=== PATIENT | male | born 1960 | race Caucasian/White ===

== ENCOUNTER 2020-10-21 09:55 | Emergency (ER) | payer BC, SELFPAY ==
--- NOTE | ~2020-10-21 | XR_ITS ---
EXAMINATION: XR chest 1V portable 10/21/2020 11:00 INDICATION: Cough and fever. Hypertension. PROCEDURE: AP portable chest COMPARISON: No prior studies for comparison. FINDINGS: The lungs are clear. The cardiomediastinal silhouette is within normal limits. There are no pleural effusions. There is no pneumothorax suspected. IMPRESSION: 1: NO ACUTE CARDIOPULMONARY DISEASE. Reviewed, dictated and finalized at location A.
[2020-10-21 10:02] VITALS: BP 167/108; PULSE 124; RESP 18; TEMP 36; O2SAT 99
--- NOTE | 2020-10-21 10:42 | ED.GENADULT ---
HPI - General Adult General Chief complaint: Weakness Stated complaint: Headache Time Seen by Provider: 10/21/20 10:19 History of Present Illness HPI narrative: Patient is a 52-year-old male with history of hypertension who comes to the emergency room today with complaints of feeling fatigued and having generalized weakness along with sore throat, bilateral ear pain and a frontal headache for the last few days. Admits to fevers with a temperature of 101 over the weekend. Has been having some dyspnea on exertion that is become worse today and just says that he is feeling exhausted. 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 Patient was satting 79% on room air upon initial evaluation. Placed on 3 L nasal cannula and now satting in the high 90s and feeling much more comfortable. No nausea or vomiting, no anosmia. Related Data Home Medications Medication Instructions Recorded Confirmed diltiazem HCl PO 10/21/20 Allergies Allergy/AdvReac Type Severity Reaction Status Date / Time No Known Allergies Allergy Unverified 10/21/20 10:04 Review of Systems Review of Systems: All systems reviewed & are unremarkable except as noted in HPI and below Exam Const: General: no acute distress and alert Orientation/consciousness: patient oriented x3 Other: Pleasant, no distress HENMT: Head: normal to inspection Eyes: Pupils: Equal, round and reactive pupils present Neck: Neck: normal visual inspection Chest: Chest palpation & inspection: normal inspection of the chest Resp: Effort & Inspection: normal respiratory effort Cardio: Rate: tachycardic GI: Inspection: non-distended GI Palp: Yes Soft to palpation, No Tenderness to palpation present (GI) and No Guarding due to palpation present (GI) Skin: General skin exam: normal color Neuro: General: patient oriented x3, moves all extremities and no meningeal signs Extrem: General: normal to inspection and no edema Psych: Mental Status: mental status grossly normal Affect: normal affect Course Course Emergency Course: EKG: Time: 1048. Rate: 91. Rhythm: Normal sinus. No ST or T wave normalities. Normal EKG. Vital Signs Vital signs: Vital Signs Temperature 36.0 C L 10/21/20 10:02 Pulse Rate 124 H 10/21/20 10:02 Respiratory Rate 18 10/21/20 10:02 Blood Pressure 167/108 H 10/21/20 10:02 Pulse Oximetry 99 10/21/20 10:02 Temperature 36.0 C L 10/21/20 10:02 Pulse Rate 94 10/21/20 11:44 Respiratory Rate 14 10/21/20 11:44 Blood Pressure 164/109 H 10/21/20 11:44 Pulse Oximetry 96 10/21/20 11:44 Medical Decision Making MDM Narrative Medical decision making narrative: 13:11 Rechecked the patient. He is feeling much better just with the supplemental oxygen. He has refused the IV fluids and the Toradol and Tylenol. I turned off the supplemental oxygen and patient was maintaining O2 saturations in the high 90s. I had the patient ambulate around the ED and he still maintain O2 saturations in the high 90s. He is requesting to be discharged. I feel that that is reasonable. I expressed my concern for COVID-19 infection. We agreed on plan for discharge with strict return to ED precautions. Medical Records Medical records reviewed: Yes I reviewed the external patient's medical records. Vital Signs Vital Signs: Vital Signs Temperature 36.0 C L 10/21/20 10:02 Pulse Rate 124 H 10/21/20 10:02 Respiratory Rate 18 10/21/20 10:02 Blood Pressure 167/108 H 10/21/20 10:02 Pulse Oximetry 99 10/21/20 10:02 Temperature 36.0 C L 10/21/20 10:02 Pulse Rate 94 10/21/20 11:44 Respiratory Rate 14 10/21/20 11:44 Blood Pressure 164/109 H 10/21/20 11:44 Pulse Oximetry 96 10/21/20 11:44 Lab Data Result diagrams: 10/21/20 11:19 10/21/20 11:19 Labs: Lab Results 10/21/20 10/21/20 10/21/20 Range/Units 11:19 11:19 11:19 WBC 6.4 (4.5-10.0) K/mm3 RBC
--- NOTE | 2020-10-21 10:46 | ECG_ITS ---
Measurements Intervals [place] Rate: 91 P: 38 MT: 148 QRS: 8 QRSD: 105 T: 36 QT: 383 QTc: 472 Interpretive Statements SINUS RHYTHM NORMAL ECG Electronically Signed On 10-21-2020 11:23:24 CDT by Eric Mcghee D.O.
[2020-10-21 10:48] VITALS: PULSE 92
--- NOTE | 2020-10-21 11:03 | PC.NURSE ---
Pt placed on 2 L NC O2 due to Ox Sat of 70% on room air. O2 sat then increased to 95%.
[2020-10-21 11:28] LABS: Basophils Percent Auto 0.6 % (0.2-1.2); Eosinophils Absolute Auto 0.1 K/mm3 (0-0.3); Hemoglobin 14.5 g/dL (14.0-18.0); Immature Granulocyte Absolute 0.01 K/mm3 (0.00-0.031); Immature Granulocyte Percent A 0.2 % (0-0.5); Immature Platelet Fraction Pct 7.6 % (0.9-11.2); Lymphocytes Absolute Auto 1.65 K/mm3 (0.9-3.2); Lymphocytes Percent Auto 25.9 % (18.3-44.2); Mean Corpuscular HGB Conc 34.5 g/dl (32-36); Mean Corpuscular Hemoglobin 36.8 pg (26-34); Mean Corpuscular Volume 106.6 fl (80-100); Mean Platelet Volume 10.6 fl (7.4-10.4); Monocytes Absolute Auto 0.8 K/mm3 (0.1-0.6); Monocytes Percent Auto 12.2 % (2.6-8.5); Neutrophils Absolute Auto 3.8 K/mm3 (1.3-6.7); Neutrophils Percent Auto 59.1 % (45.5-73.1); Platelet Count Result 124 k/mm3 (150-375); Red Blood Count 3.94 M/mm3 (4.6-6.20); Red Cell Distribution Width 13.5 % (11.5-14.5); White Blood Count 6.4 K/mm3 (4.5-10.0)
[2020-10-21 11:29] LABS: Add Urine Microscopic? YES; Appearance Urine Clear (Clear); Bilirubin Urine Negative (Negative); Blood Urine Negative (Negative); Color Urine Yellow (Yellow); Glucose Urine UA Negative (Negative); Ketones Urine Negative (Negative); Leukocyte Esterase Ur Negative LEU/UL (Negative); Mucus Urine Rare /lpf; Nitrate Urine Negative (Negative); Protein Urine 3+ mg/dL (Negative); Specific Grav Ur 1.017 (1.001-1.035)
[2020-10-21 11:44] VITALS: BP 164/109; PULSE 94; RESP 14; O2SAT 96
--- NOTE | 2020-10-21 11:50 | PC.NURSE ---
Went to room to start IV. Pt verbalized not wanting IV unless absolutely necessary . Declined Tylenol due to possible side effect of liver toxicity. Declined Toradol also stated pain is better . Oxygen decreased to 1L/NC
[2020-10-21 12:19] LABS: Alanine Aminotransferase 47 U/L (4-50); Albumin Level 4.8 g/dL (3.5-5.1); Alkaline Phosphatase 127 U/L (38-126); Anion Gap 14 mmol/L (8-16); Aspartate Amino Transferase 81 U/L (17-59); Bilirubin,Total 1.2 mg/dL (0.2-1.3); Blood Urea Nitrogen 9 mg/dL (9-20); Calcium 9.5 mg/dL (8.4-10.2); Carbon Dioxide 23 mmol/L (22-30); Chloride 104 mmol/L (98-107); Estimated CRCL calculation 102 ml/min; Estimated Glomerular Filt Rate > 60; Glucose 99 mg/dL (75-110); Potassium 3.9 mmol/L (3.4-5.0); Sodium 141 mmol/L (137-145)
--- NOTE | 2020-10-21 12:45 | PC.NURSE ---
Ambulated patient down jauregui and around nurses station on room air. Spo2 97-99%. Pt tolerated well
[2020-10-22 02:35] LABS: SARS-CoV-2 RNA PCR Negative
== END 2020-10-21 13:36 | disposition home or self-care (01) ==
PROVIDERS: Physician Assistant Medical; Emergency Provider Emergency Medicine; PCP Family Medicine
DX: Z20.828 Contact with and (suspected) exposure to other viral communicable diseases (principal); B34.9 Viral infection, unspecified; J06.9 Acute upper respiratory infection, unspecified
CPT/HCPCS: 36415; 71045; 80053; 81001; 85025; 85055; 87426; 93005; 99283; C9803; U0003; U0005

== ENCOUNTER 2025-05-15 10:36 | Inpatient (IN) | payer OTHER, SELFPAY ==
[2025-05-15] VITALS (20 sets, daily range): BP systolic 124–148; BP diastolic 56–90; PULSE 69–100; RESP 12–18; TEMP 36.4–36.8; O2SAT 96–100; BMI 26.3
--- NOTE | ~2025-05-15 | US_ITS ---
EXAMINATION: US paracentesis abd w/image DATE: 05/16/2025 13:51 INDICATION: Ascites. TECHNIQUE: The procedure and its risks and benefits were discussed with the patient. Potential risks discussed included bleeding and infection. The skin was prepped and draped in sterile fashion. 1% lidocaine was used for local anesthesia. Under ultrasound guidance, a 5 Fr catheter with trochar was advanced into the ascites in the left lower quadrant. Fluid was aspirated into vacuum bottles. The catheter was removed, and a dressing was applied. There were no immediate complications. FINDINGS: Ultrasound images demonstrate ascites and the catheter within the fluid. IMPRESSION: 1. Successful ultrasound-guided paracentesis yielding 2350 mL of straw-colored fluid. Reviewed, dictated and finalized at location A.
--- NOTE | ~2025-05-15 | US_ITS ---
EXAMINATION: US renal BI DATE: 05/16/2025 14:15 INDICATION: Acute renal failure TECHNIQUE: Multiple ultrasound grayscale images of the kidneys were obtained. COMPARISON: None. FINDINGS: The right kidney measures 10.9 x 5.5 x 4.8 cm. The left kidney measures 13.2 x 6.3 x 4.8 cm. The kidneys demonstrate normal echogenicity. There is no hydronephrosis in either kidney. No stones identified. The bladder is normal with bilateral ureteral jets visualized on color Doppler. Moderate amount of ascites scattered throughout the abdomen and pelvis. IMPRESSION: 1. Normal kidneys without hydronephrosis. 2. Moderate amount of ascites. Reviewed, dictated and finalized at location A.
--- NOTE | ~2025-05-15 | US_ITS ---
EXAMINATION: US paracentesis abd w/image DATE: 05/19/2025 13:59 INDICATION: Ascites. TECHNIQUE: The procedure and its risks and benefits were discussed with the patient. Potential risks discussed included bleeding and infection. The skin was prepped and draped in sterile fashion. 1% lidocaine was used for local anesthesia. Under ultrasound guidance, a 5 Fr catheter with trochar was advanced into the ascites in the right lower quadrant. Fluid was aspirated into vacuum bottles. The catheter was removed, and a dressing was applied. There were no immediate complications. FINDINGS: Ultrasound images demonstrate ascites and the catheter within the fluid. IMPRESSION: 1. Successful ultrasound-guided paracentesis yielding 3400 mL of clear yellow fluid. Reviewed, dictated and finalized at location A.
--- NOTE | ~2025-05-15 | XR_ITS ---
EXAMINATION: XR chest 2V, 05/16/2025 14:25 CDT HISTORY: evaluate for pneumonia COMPARISON: No comparisons available. Technique: 2 views obtained. Findings: There are bilateral infiltrates noted most marked involving the upper lobes. No pneumothorax. Heart is normal size. Mediastinal and hilar contours are within normal limits. Bony thorax no acute abnormality. Impression: Bilateral pneumonia Reviewed, dictated and finalized at location P. Impression: Bilateral pneumonia
--- NOTE | ~2025-05-15 | MR_ITS ---
EXAMINATION: MR abdomen wo con DATE: 05/16/2025 13:29 INDICATION: Liver mass TECHNIQUE: Magnetic resonance imaging (MRI) of the abdomen was performed without intravenous contrast. Sequences included coronal T2-weighted SS-FSE, coronal and axial FS 2D-FIESTA, axial STIR FSE, axial T2-weighted SS-FSE, axial T2- weighted FS SS-FSE, axial diffusion-weighted SE, axial dual-echo T1-weighted FSPGR, and axial and coronal T1-weighted LAVA. COMPARISON: CT and ultrasound dated 05/15/2025 FINDINGS: Very small bilateral posterior layering pleural effusion. There is a region of consolidation at the lingula suspicious for pneumonia. Mild cardiomegaly. No pericardial effusion. Shrunken nodular cirrhotic liver. There is relatively homogeneous pancreatic parenchymal signal on all sequences with no hepatic masses identified. Splenomegaly measuring 16.0 cm in maximal craniocaudal length consistent with portal venous hypertension secondary to cirrhosis. Flow voids are seen within the recanalized umbilical vein and periumbilical varices is also consistent with secondary portal venous hypertension. Pancreas and bilateral adrenal glands are normal. A few small T2 hyperintense bilateral renal cysts the largest at the upper pole the left kidney measuring up to 8mm. Multiple tiny low signal intensity gallstones in the dependent aspect of the nondilated gallbladder. There is persistent diffuse mild edematous gallbladder wall thickening which is likely related to liver disease with no evident sonographic Christy's sign on right upper quadrant ultrasound from one day prior. There is additional edematous wall thickening in the proximal colon likely related to hepatic colopathy. No bowel obstruction. Extensive mesenteric, retroperitoneal and body wall edema. Moderate amount of ascites throughout the abdomen and pelvis. No pathologically enlarged abdominal or upper pelvic lymphadenopathy. Mild lumbar dextrocurvature with mild spondylosis. IMPRESSION: 1. Cirrhosis without evident hepatic nodules or masses. Sensitivity is mildly decreased in the absence of intravenous contrast. If there is continued clinical concern could consider follow-up postcontrast imaging when patient's significant acute renal insufficiency improves. 2. Secondary portal venous hypertension with splenomegaly and recanalized umbilical vein with periumbilical varices. 3. Cholelithiasis with no intra or extrahepatic biliary ductal dilation. The associated mild gallbladder wall thickening is likely related to liver disease with no frances dilation of the gallbladder or sonographic Christy's sign on ultrasound study from one day prior to suggest acute cholecystitis. 4. Pneumonia in the lingula with very small bilateral pleural effusions. 5. Cardiomegaly. 6. Diffuse soft tissue edema and moderate amount of ascites in the abdomen and pelvis. 7. Edematous wall thickening of the proximal colon most likely related to hepatic colopathy with differential including colitis which could be infectious, inflammatory or less likely ischemic in etiology. Reviewed, dictated and finalized at location A. IMPRESSION: 1. Cirrhosis without evident hepatic nodules or masses. Sensitivity is mildly d ecreased in the absence of intravenous contrast. If there is continued clinical concern could consider follow-up postcontrast imaging when patient's significa nt acute renal insufficiency improves. 2. Secondary portal venous hypertension with splenomegaly and recanalized umbil ical vein with periumbilical varices. 3. Cholelithiasis with no intra or extrahepatic biliary ductal dilation. The as sociated mild gallbladder wall thickening is likely related to liver disease wi th no frances dilation of the gallbladder or sonographic Christy's sign on ultraso und study from one day prior to suggest acute cholecystitis. 4. Pneumonia in the lingula with very small bilateral pleural effusions. 5. Cardiomegaly. 6. Diffuse soft tissue edema and moderate amount of ascites in the abdomen and pelvis. 7. Edematous wall thickening of the proximal colon most likely related to hepat ic colopathy with differential including colitis which could be infectious, inf lammatory or less likely ischemic in etiology.
--- NOTE | ~2025-05-15 | US_ITS ---
US right upper quadrant Indication: abd pain, nausea, liver failure Comparison: None Technique: Mcneal-scale and color Doppler images were obtained. Findings: LIVER: Moderate increased echogenicity of the liver. The liver contours are nodular. There are underlying subcentimeter liver lesions suspected. . Large amount of ascites. GALLBLADDER/BILIARY: Probable reactive thickening of the gallbladder wall, no cholelithiasis, subcentimeter probable gallbladder polyps with minimal sludge. CBD 3.6 mm. Purdy sign negative. PANCREAS: Pancreas limited by bowel gas. Right Kidney: Right kidney was not imaged Impression: Cirrhotic disease of the liver with underlying liver lesion suspected. Contrast- enhanced MRI recommended Reviewed, dictated and finalized at location P. Impression: Cirrhotic disease of the liver with underlying liver lesion suspected. Contrast -enhanced MRI recommended
--- NOTE | ~2025-05-15 | CT_ITS ---
CT ABDOMEN AND PELVIS WITHOUT CONTRAST Clinical History: abd pain, ARIANA, liver failure Comparison: CT abdomen and pelvis 11/14/2016 Technique: Unenhanced axial images lung bases to symphysis pubis Coronal, sagittal reformats CT images acquired with automatic exposure control for dose reduction DLP: 494 mGy-cm Findings: Without intravenous contrast, sensitivity for detecting visceral parenchymal abnormalities decreased. Lung bases: Multifocal bilateral airspace disease. Small pleural effusions. Visualized heart and pericardium: Unremarkable. Liver: Cirrhosis. Enlarged. Recanalized umbilical vein. Gallbladder: Stones. Dilated Spleen: Enlarged. Pancreas: Unremarkable. Adrenal glands: Unremarkable. Kidneys: Right kidney- No hydronephrosis. No renal stones. Left kidney- No hydronephrosis. No renal stones. Distal esophagus/stomach: Unremarkable. Small bowel loops: Normal caliber and wall thickness. Colon: Scattered wall thickening. Normal RLQ appendix. Nodes: No enlarged nodes. Peritoneum: Moderate volume scattered ascites. No free intraperitoneal air. Urinary bladder: Unremarkable. Prostate: Unremarkable. Bones: No acute bony abnormality. Soft tissues: Right inguinal hernia with fluid. Unopacified abdominal aorta: No aneurysmal dilatation. IMPRESSION: 1. Multifocal bilateral pneumonia, with small pleural effusions. 2. Colitis. Portal hypertensive versus infectious/inflammatory. 3. Cirrhosis. Hepatosplenomegaly. Decompensated portal hypertension. 4. Distended gallbladder. If concern for cholecystitis, recommend ultrasound and/or HIDA scan. 5. No hydronephrosis. 6. Moderate volume ascites. Reviewed, dictated and finalized at location R. IMPRESSION: 1. Multifocal bilateral pneumonia, with small pleural effusions. 2. Colitis. Portal hypertensive versus infectious/inflammatory. 3. Cirrhosis. Hepatosplenomegaly. Decompensated portal hypertension. 4. Distended gallbladder. If concern for cholecystitis, recommend ultrasound a nd/or HIDA scan. 5. No hydronephrosis. 6. Moderate volume ascites.
[2025-05-15 11:50] LABS: Hematocrit 33.8 % (42.0-52.0); Hemoglobin 11.3 g/dL (14.0-18.0); Immature Granulocyte Percent A 1.3 % (0-0.5); Immature Platelet Fraction Pct 5.4 % (0.9-11.2); Lymphocytes Absolute Auto 0.98 K/mm3 (0.9-3.2); Mean Corpuscular HGB Conc 33.4 g/dl (32-36); Mean Corpuscular Hemoglobin 37.7 pg (26-34); Mean Corpuscular Volume 112.7 fl (80-100); Nucleated Red Blood Cells Absolute Auto 0.000 K/mm3 (0.0-0.012); Nucleated Red Blood Cells Perc 0.0 % (0.0-0.2); Platelet Count Result 133 k/mm3 (150-375); Red Blood Count 3.00 M/mm3 (4.6-6.20); White Blood Count 13.6 K/mm3 (4.5-10.0)
[2025-05-15 12:03] LABS: Alanine Aminotransferase 26 U/L (6-50); Albumin Level 2.9 g/dL (3.5-5.1); Alkaline Phosphatase 177 U/L (38-126); Anion Gap 11 mmol/L (4-12); Aspartate Amino Transferase 62 U/L (17-59); Bilirubin,Total 10.1 mg/dL (0.2-1.3); Blood Urea Nitrogen 45 mg/dL (9-20); Calcium 8.0 mg/dL (8.4-10.2); Carbon Dioxide 25 mmol/L (22-30); Chloride 94 mmol/L (98-107); Estimated CRCL calculation 19 ml/min; Estimated Glomerular Filt Rate 16; Glucose 115 mg/dL (65-110); INR 1.9; Lipase 206 U/L (23-300); Potassium 3.7 mmol/L (3.4-5.0); Prothrombin Time 21.0 Seconds (11.1-14.7); Sodium 130 mmol/L (137-145); Total Protein 7.3 g/dL (6.3-8.2)
[2025-05-15 12:04] LABS: Partial Thromboplastin Time 39.7 Seconds (22.3-36.8)
[2025-05-15 12:06] LABS: Add Urine Microscopic? YES; Appearance Urine Cloudy (Clear); Glucose Urine UA Trace mg/dL (Negative); Leukocyte Esterase Ur Trace LEU/UL (Negative); Need Manual Microscopic Reviewed; Nitrate Urine Negative (Negative); Specific Grav Ur 1.017 (1.001-1.035)
[2025-05-15 12:09] LABS: Anisocytosis 1+; Burr Cells 1+; Ovalocytes 1+; Schistocytes None Seen
--- NOTE | 2025-05-15 12:54 | ED_ITS ---
HPI - Abdominal Pain General Chief Complaint: Abdominal Pain Stated Complaint: abdominal pain Time Seen by Provider: 05/15/25 11:18 Source: patient Mode of arrival: ambulatory Limitations: no limitations History of Present Illness HPI narrative: This is a 65-year-old male that presents to the emergency department for abdominal pain. Reports abdominal pain, bloating, nausea, dark stools. Reports yellowing of his eyes. Ongoing over the last couple of weeks. Related Data Home Medications ?Medication ?Instructions ?Recorded ?Confirmed ?Last Taken ?Type indapamide 2.5 mg tablet 2.5 mg PO DAILY 11/18/2205/08/25 History milk thistle 500 mg capsule 500 mg PO DAILY 11/18/22 1 Unknown History omeprazole magnesium 20 mg 20 mg PO DAILY 06/27/23 Unknown History tablet,delayed release (Prilosec OTC) Allergies Allergy/AdvReac Type Severity Reaction Status Date / Time No Known Allergies Allergy Verified 05/15/25 18:16 Review of Systems 2 Review of Systems: All systems reviewed & are unremarkable except as noted in HPI and below PMFSH Past Medical History Medical History (Updated 05/16/25 @ 19:44 by Renetta Echeverria PA-C) Melanoma Atherosclerosis of coronary artery of [place] heart without angina pectoris Personal history of malignant melanoma of skin Alcohol use disorder, moderate, dependence Alcoholic hepatitis without ascites Hepatic steatosis Essential (primary) hypertension Surgical History Surgical History (Updated 05/16/25 @ 00:56 by Kisha Garces APRN) History of tonsillectomy History of melanoma excision 07/09/2021 History of sinus surgery 1995 Social History Social History (Updated 05/16/25 @ 00:57 by Kisha Garces APRN) Social History: The patient lives with his and has 1 daughter. He also has 4 step children. He stated that he quit drinking so months ago and only has an occasional drink. Code status: Full code Smoking status: Never smoker Second hand tobacco smoke exposure: No Alcohol intake: current Drinks per week: 2 Substance use: never Substance use type: does not use Lack of Transportation: No Lack of Food: Never True Current Housing: I Have Housing Concerned About Future Housing: No Difficulty Paying Gas/Electric Bills: No Difficulty Paying for Meds: No Currently Unemployed: No Education: High School Diploma/GED Difficulty w/ Childcare or Family Care: No Living arrangements: with family Occupation/Education: occupation Gender identity (if verbalized by the patient): Male Sexual Orientation (if Verbalized by the Patient): Straight or Heterosexual Spiritual care concerns: No Exam 2 Narrative: GENERAL: Well-appearing, well-nourished, and in no acute distress. HEAD: Normocephalic, atraumatic. EYES: EOMI. Scleral icterus ENT: Nares clear, no rhinorrhea or epistaxis. Mucous membranes moist. Oropharynx without tonsillar hypertrophy exudate or other lesions. CHEST: Clear to auscultation. No respiratory distress. No wheezes rales or rhonchi HEART: Regular rate and rhythm. No murmur heard. Normal peripheral pulses. ABDOMEN: Soft, nontender, mildly distended, normal active bowel sounds. EXTREMITIES: Normal range of motion. No edema. SKIN: Warm, dry, no rash. NEURO: No focal deficits. Alert and oriented x3. PSYCH: Normal mood and affect Course Consultations Consultation #1: Spoke with hospitalist about patient and workup who accepts admission Date: 05/15/25 Consultation #2: Spoke with GI who will consult Date: 05/16/25 Vital Signs Vital signs: Vital Signs Temperature 97.6 F 05/15/25 10:53 Pulse Rate 100 05/15/25 10:53 Respiratory Rate 18 05/15/25 10:53 Blood Pressure 127/60 05/15/25 10:53 Pulse Oximetry 97 05/15/25 10:53 Oxygen Delivery Room Air 05/15/25 10:53 Temperature 97.7 F 05/16/25 15:41 Pulse Rate 74 05/16/25 15:41 Respiratory Rate 18 05/16/25 15:41 Blood Pressure 126/54 L 05/16/25 15:41 Pulse Oximetry 98 05/16/25 15:41 Oxygen Delivery Room Air 05/16/25 09:45 MDM - Abdominal Pain MDM Narrative Medical decision making narrative: Patient presents the emergency department for abdominal pain, bloating. Ongoing over the last week. He is afebrile and nontoxic appearing. CBC with leukocytosis. Showing macrocytic anemia hemoglobin of 11.3. Metabolic panel with evidence of acute kidney dysfunction as well as acute liver failure. Urine without evidence of infection. Influenza, RSV, COVID screens are negative. CT abdomen and pelvis showing multifocal bilateral pneumonia. Portal hypertension, cirrhosis, hepatosplenomegaly. Moderate volume ascites. Blood cultures obtained, patient started on IV antibiotics. Will be admitted for further management Differential Diagnosis Differential diagnosis: Likely abdominal pain and other (acute liver failure, acute renal failure, acute cholecystitis, pneumonia, ascites, cirrhosis) Lab Data Attestation: I reviewed the patient's lab results. 05/16/25 02:23 05/16/25 08:06 Labs: Lab Results 05/15/25 05/15/25 05/16/25 Range/Units 11:39 15:27 02:23 WBC 13.6 H 11.8 H (4.5-10.0) K/mm3 RBC 3.00 L 2.59 L (4.6-6.20) M/mm3 Hgb 11.3 L D 9.7 L (14.0-18.0) g/dL Hct 33.8 L 29.1 L (42.0-52.0) % MCV 112.7 H 112.4 H (80-100) fl MCH 37.7 H 37.5 H (26-34) pg MCHC 33.4 33.3 (32-36) g/dl RDW 15.9 H 15.9 H (11.5-14.5) % Plt Count 133 L 105 L (150-375) k/mm3 MPV 10.7 H 10.7 H (7.4-10.4) fl Immature Gran % (Auto) 1.3 H (0-0.5) % Neut % (Auto) 76.5 H (45.5-73.1) % Lymph % (Auto) 7.2 L (18.3-44.2) % Esmeralda % (Auto) 13.3 H (2.6-8.5) % Eos % (Auto) 1.3 (0-4.4) % Baso % (Auto) 0.4 (0.2-1.2) % Lymph # (Auto) 0.98 (0.9-3.2) K/mm3 Esmeralda # (Auto) 1.8 H (0.1-0.6) K/mm3 Eos # (Auto) 0.2 (0-0.3) K/mm3 Baso # (Auto) 0.1 (0.0-0.1) K/mm3 Abs Immat Gran (auto) 0.17 H (0.00-0.031) K/mm3 Absolute Neuts (auto) 10.4 H (1.3-6.7) K/mm3 Absolute Nucleated RBC 0.000 (0.0-0.012) K/mm3 Band Neutrophils % Not Reportable Nucleated RBC % 0.0 (0.0-0.2) % Platelet Estimate Decreased (Adequate) % Immature Plt Fraction 5.4 5.0 (0.9-11.2) % Anisocytosis 1+ Ovalocytes 1+ Cecelia Cells 1+ Schistocytes None seen PT 21.0 H (11.1-14.7) Seconds INR 1.9 APTT 39.7 H (22.3-36.8) Seconds Sodium 130 L 129 L (137-145) mmol/L Potassium 3.7 3.4 (3.4-5.0) mmol/L Chloride 94 L 95 L (98-107) mmol/L Carbon Dioxide 25 23 (22-30) mmol/L Anion Gap 11 11 (4-12) mmol/L BUN 45 H D 51 H (9-20) mg/dL Creatinine 3.82 H 3.65 H (0.7-1.3) mg/dL Estim Creat Clear Calc 19 20 ml/min Estimated GFR 16 L 17 L (59 - ) Glucose 115 H 110 (65-110) mg/dL Calcium 8.0 L 8.0 L (8.4-10.2) mg/dL Total Bilirubin 10.1 H (0.2-1.3) mg/dL Direct Bilirubin (0-0.3) mg/dL Indirect Bilirubin (0-1.1) mg/dL AST 62 H (17-59) U/L ALT 26 (6-50) U/L Alkaline Phosphatase 177 H (38-126) U/L Ammonia 14 (9-30) umol/L Total Protein 7.3 (6.3-8.2) g/dL Albumin 2.9 L (3.5-5.1) g/dL Lipase 206 (23-300) U/L Tumor Marker AFP Vitamin B12 Folate Urine Color Dark yellow (Yellow) Urine Appearance Cloudy H (Clear) Urine pH 5.0 (5.0-9.0) Ur Specific [place] 1.017 (1.001-1.035) Urine Protein 1+ H (Negative) mg/dL Urine Glucose (UA) Trace H (Negative) mg/dL Urine Ketones Trace H (Negative) mg/dL Ur Blood (Man) 1+ H (Negative) Urine Nitrate Negative (Negative) Urine Bilirubin 2+ H (Negative) Urine Urobilinogen 1.0 (<2.0) mg/dL Add Ur Microanalysis Reviewed Leukocyte Esterase Rfl Trace H (Negative) JUNO/UL Urine RBC 3-5 H (0-2) /hpf Urine WBC 6-10 H (0-3) /hpf Ur Squamous Epith Cells Many H (Few) /hpf Urine Bacteria None seen /hpf Urine Casts 11-20 Granular Casts Present (None) /lpf Ethyl Alcohol < 10 (<10) mg/dL Hepatitis A IgM Ab Negative (Negative) Hep Bs Antigen Negative (Negative) Hep B Core IgM Ab Negative (Negative) Hepatitis C Ab Screen Negative (Negative) Influenza A (RT-PCR) Negative (Negative) Influenza B (RT-PCR) Negative (Negative) RSV (RT-PCR) Negative (Negative) SARS-CoV-2 RNA (RT-PCR) Negative (Negative) 05/16/25 05/16/25 05/16/25 Range/Units 08:06 08:06 08:06 WBC (4.5-10.0) K/mm3 RBC (4.6-6.20) M/mm3 Hgb (14.0-18.0) g/dL Hct (42.0-52.0) % MCV (80-100) fl MCH (26-34) pg MCHC (32-36) g/dl RDW (11.5-14.5) % Plt Count (150-375) k/mm3 MPV (7.4-10.4) fl Immature Gran % (Auto) (0-0.5) % Neut % (Auto) (45.5-73.1) % Lymph % (Auto) (18.3-44.2) % Esmeralda % (Auto) (2.6-8.5) % Eos % (Auto) (0-4.4) % Baso % (Auto) (0.2-1.2) % Lymph # (Auto) (0.9-3.2) K/mm3 Esmeralda # (Auto) (0.1-0.6) K/mm3 Eos # (Auto) (0-0.3) K/mm3 Baso # (Auto) (0.0-0.1) K/mm3 Abs Immat Gran (auto) (0.00-0.031) K/mm3 Absolute Neuts (auto) (1.3-6.7) K/mm3 Absolute Nucleated RBC (0.0-0.012) K/mm3 Band Neutrophils % Nucleated RBC % (0.0-0.2) % Platelet Estimate (Adequate) % Immature Plt Fraction (0.9-11.2) % Anisocytosis Ovalocytes [place] Cells Schistocytes PT (11.1-14.7) Seconds INR APTT (22.3-36.8) Seconds Sodium 128 L (137-145) mmol/L Potassium 4.3 (3.4-5.0) mmol/L Chloride 97 L (98-107) mmol/L Carbon Dioxide 25 (22-30) mmol/L Anion Gap 6 (4-12) mmol/L BUN 52 H (9-20) mg/dL Creatinine 3.51 H (0.7-1.3) mg/dL Estim Creat Clear Calc 21 ml/min Estimated GFR 18 L (59 - ) Glucose 108 (65-110) mg/dL Calcium 7.9 L (8.4-10.2) mg/dL Total Bilirubin 6.3 H (0.2-1.3) mg/dL Direct Bilirubin 1.0 H (0-0.3) mg/dL Indirect Bilirubin 2.7 H (0-1.1) mg/dL AST 54 (17-59) U/L ALT 21 (6-50) U/L Alkaline Phosphatase 218 H (38-126) U/L Ammonia (9-30) umol/L Total Protein 6.0 L (6.3-8.2) g/dL Albumin 2.3 L (3.5-5.1) g/dL Lipase (23-300) U/L Tumor Marker AFP Pending Vitamin B12 Cancelled > 1000.0 H Folate Cancelled 2.8 Urine Color (Yellow) Urine Appearance (Clear) Urine pH (5.0-9.0) Ur Specific [place] (1.001-1.035) Urine Protein (Negative) mg/dL Urine Glucose (UA) (Negative) mg/dL Urine Ketones (Negative) mg/dL Ur Blood (Man) (Negative) Urine Nitrate (Negative) Urine Bilirubin (Negative) Urine Urobilinogen (<2.0) mg/dL Add Ur Microanalysis Leukocyte Esterase Rfl (Negative) JUNO/UL Urine RBC (0-2) /hpf Urine WBC (0-3) /hpf Ur Squamous Epith Cells (Few) /hpf Urine Bacteria /hpf Urine Casts Granular Casts (None) /lpf Ethyl Alcohol (<10) mg/dL Hepatitis A IgM Ab (Negative) Hep Bs Antigen (Negative) Hep B Core IgM Ab (Negative) Hepatitis C Ab Screen (Negative) Influenza A (RT-PCR) (Negative) Influenza B (RT-PCR) (Negative) RSV (RT-PCR) (Negative) SARS-CoV-2 RNA (RT-PCR) (Negative) 05/16/25 Range/Units 08:08 WBC (4.5-10.0) K/mm3 RBC (4.6-6.20) M/mm3 Hgb (14.0-18.0) g/dL Hct (42.0-52.0) % MCV (80-100) fl MCH (26-34) pg MCHC (32-36) g/dl RDW (11.5-14.5) % Plt Count (150-375) k/mm3 MPV (7.4-10.4) fl Immature Gran % (Auto) (0-0.5) % Neut % (Auto) (45.5-73.1) % Lymph % (Auto) (18.3-44.2) % Esmeralda % (Auto) (2.6-8.5) % Eos % (Auto) (0-4.4) % Baso % (Auto) (0.2-1.2) % Lymph # (Auto) (0.9-3.2) K/mm3 Esmeralda # (Auto) (0.1-0.6) K/mm3 Eos # (Auto) (0-0.3) K/mm3 Baso # (Auto) (0.0-0.1) K/mm3 Abs Immat Gran (auto) (0.00-0.031) K/mm3 Absolute Neuts (auto) (1.3-6.7) K/mm3 Absolute Nucleated RBC (0.0-0.012) K/mm3 Band Neutrophils % Nucleated RBC % (0.0-0.2) % Platelet Estimate (Adequate) % Immature Plt Fraction (0.9-11.2) % Anisocytosis Ovalocytes [place] Cells Schistocytes PT 20.3 H (11.1-14.7) Seconds INR 1.8 APTT (22.3-36.8) Seconds Sodium (137-145) mmol/L Potassium (3.4-5.0) mmol/L Chloride (98-107) mmol/L Carbon Dioxide (22-30) mmol/L Anion Gap (4-12) mmol/L BUN (9-20) mg/dL Creatinine (0.7-1.3) mg/dL Estim Creat Clear Calc ml/min Estimated GFR (59 - ) Glucose (65-110) mg/dL Calcium (8.4-10.2) mg/dL Total Bilirubin (0.2-1.3) mg/dL Direct Bilirubin (0-0.3) mg/dL Indirect Bilirubin (0-1.1) mg/dL AST (17-59) U/L ALT (6-50) U/L Alkaline Phosphatase (38-126) U/L Ammonia (9-30) umol/L Total Protein (6.3-8.2) g/dL Albumin (3.5-5.1) g/dL Lipase (23-300) U/L Tumor Marker AFP Vitamin B12 Folate Urine Color (Yellow) Urine Appearance (Clear) Urine pH (5.0-9.0) Ur Specific [place] (1.001-1.035) Urine Protein (Negative) mg/dL Urine Glucose (UA) (Negative) mg/dL Urine Ketones (Negative) mg/dL Ur Blood (Man) (Negative) Urine Nitrate (Negative) Urine Bilirubin (Negative) Urine Urobilinogen (<2.0) mg/dL Add Ur Microanalysis Leukocyte Esterase Rfl (Negative) JUNO/UL Urine RBC (0-2) /hpf Urine WBC (0-3) /hpf Ur Squamous Epith Cells (Few) /hpf Urine Bacteria /hpf Urine Casts Granular Casts (None) /lpf Ethyl Alcohol (<10) mg/dL Hepatitis A IgM Ab (Negative) Hep Bs Antigen (Negative) Hep B Core IgM Ab (Negative) Hepatitis C Ab Screen (Negative) Influenza A (RT-PCR) (Negative) Influenza B (RT-PCR) (Negative) RSV (RT-PCR) (Negative) SARS-CoV-2 RNA (RT-PCR) (Negative) Imaging Data Radiologist's impression: ITS Impressions Abdomen/Pelvis CT 05/15/25 13:33 IMPRESSION: 1. Multifocal bilateral pneumonia, with small pleural effusions. 2. Colitis. Portal hypertensive versus infectious/inflammatory. 3. Cirrhosis. Hepatosplenomegaly. Decompensated portal hypertension. 4. Distended gallbladder. If concern for cholecystitis, recommend ultrasound and/or HIDA scan. 5. No hydronephrosis. 6. Moderate volume ascites. Upper Quadrant Ultrasound 05/15/25 15:25 Impression: Cirrhotic disease of the liver with underlying liver lesion suspected. Contrast- enhanced MRI recommended Abdomen MRI 05/16/25 13:31 IMPRESSION: 1. Cirrhosis without evident hepatic nodules or masses. Sensitivity is mildly decreased in the absence of intravenous contrast. If there is continued clinical concern could consider follow-up postcontrast imaging when patient's significant acute renal insufficiency improves. 2. Secondary portal venous hypertension with splenomegaly and recanalized umbilical vein with periumbilical varices. 3. Cholelithiasis with no intra or extrahepatic biliary ductal dilation. The associated mild gallbladder wall thickening is likely related to liver disease with no frances dilation of the gallbladder or sonographic Christy's sign on ultrasound study from one day prior to suggest acute cholecystitis. 4. Pneumonia in the lingula with very small bilateral pleural effusions. 5. Cardiomegaly. 6. Diffuse soft tissue edema and moderate amount of ascites in the abdomen and pelvis. 7. Edematous wall thickening of the proximal colon most likely related to hepatic colopathy with differential including colitis which could be infectious, inflammatory or less likely ischemic in etiology. Paracentesis Ultrasound 05/16/25 14:14 IMPRESSION: 1. Successful ultrasound-guided paracentesis yielding 2350 mL of straw-colored fluid. Renal Ultrasound 05/16/25 14:17 IMPRESSION: 1. Normal kidneys without hydronephrosis. 2. Moderate amount of ascites. Chest X-Ray 05/16/25 14:36 Impression: Bilateral pneumonia Critical Care Time Critical Care Time Critical Care Time: Yes Total Critical Care Time: 35 Discharge Plan Discharge Clinical Impression: Acute liver failure Qualifiers: Hepatic coma status: without hepatic coma Qualified Code(s): K72.00 - Acute and subacute hepatic failure without coma Acute renal failure Qualifiers: Acute renal failure type: unspecified Qualified Code(s): N17.9 - Acute kidney failure, unspecified Pneumonia Qualifiers: Pneumonia type: due to unspecified organism Laterality: bilateral Lung location: lower lobe of lung Qualified Code(s): J18.9 - Pneumonia, unspecified organism Patient Disposition: Still a Patient Condition: Serious
--- OUTSIDE RECORDS SUMMARY | 2025-05-15 13:43 | XMS_ITS | Encounter Summary ---
Author Organization [facility] Address [address] [place] [address] Phone Care Team Providers Care Integration Developer Name Role Phone Terrell Pillai MD Primary Care Provider [phone] Alfie Bashir MD Unavailable [phone] Encounter Details Date Type Department Care Team (Latest Contact Info) Description 05/28/2024 Orders Only [facility] Scanning, Provider Social History Tobacco Use Types Packs/Day Years Used Date Smoking Tobacco: Former Cigarettes Smokeless Tobacco: Former Chew Quit: 1994 AUDIT-C Answer Date Recorded Q1: How often do you have a drink containing alcohol? 4 or more times a week 07/09/2021 Q2: How many drinks containi ng alcohol do you have on a typical day when you are drinking? 5 or 6 Frequency of Binge Drinking Not on file 06/30 Sex and Gender Information Value Date Recorded Sex Assigned at Not on file Legal Sex Male 7:33 PM TRANSFER AGENT Gender Identity Not on file Sexual Orientation Not on file documented as of this encounter Plan of Treatment Not on file documented as of this encounter Procedures Procedure Name Priority Date/Time Associated Diagnosis Comments SCAN - PATHOLOGY 05/28/2024 documented in this encounter Results * SCAN - PATHOLOGY (05/28/2024) us Provider Scanning Final Result documented in this encounter Visit Diagnoses Not on filedocumented in this encounter Care Teams Integration Developer Relationship Specialty Start Date End Date Terrell Pillai MD [address] [place] [id number] PCP - General Family Medicine 06/08/21 Alfie Bashir MD [address] [place] [address] Medical Oncologist/Pelletizer Medical Oncology 11/25/24 documented as of this encounter
--- OUTSIDE RECORDS SUMMARY | 2025-05-15 13:43 | XMS_ITS | Clinical Summary ---
Author Organization [facility] Address [address] [place] [address] Care Team Providers Care Principal Administrative Clerk Name Role Phone Vladimir Villela MD Primary Care Provider [phone] Source Comments [facility],non-owned Affiliates and Associated Physician Practices is amultiple site organization consisting of ambulatory clinics and hospital sitesin [place], [place], [place] and [place]. This disclosure is being madepursuant to the Care Everywhere program and may not contain all information available regarding this patient. Last updated 18.[facility] Allergies No known active allergies Medications * Be aware that medications may not be up to date on this document. Alwaysverify current medications with the patient. lisinopril (PRINIVIL; ZESTRIL) 2.5 MG tabletIndication s:HTN (hypertension) Take 1 Tab by mouth once daily. 30 Tab 6 05/13/2011 Active Bioflavonoid Products (VITAMIN C PLUS) 1000 MG TABS 2 Tabs 2 times daily. Active MILK THISTLE PO 2 Caps 2 times daily. Active ASPIRIN BUFFERED PO 1 Tab as directed. Take 1 tab by mouth every 2 days Active FLEXERIL 5 MG TABS tabletIndication s:LBP (low back pain) Take 1 Tab by mouth 3 times daily as needed. 42 Tab 0 08/19/2011 Active metoprolol succinate XL 24hr (TOPROL XL) 200 MG tabletIndication s:HTN (hypertension), malignant Take 1 Tab by mouth 2 times daily. Needs the WOCK generic, (NOT PAR) 60 Tab 6 08/19/2011 Active Active Problems Problem Noted Date Diagnosed Date Alcohol abuse 02/25/2011 Overview (02/25/2011): Dependence more 2010, with withdrawal symptoms January. Alcohol dependence 02/25/2011 Overview (02/25/2011): AA meeting 1st 02/24/2011 HLD (hyperlipidemia) 11/17/2009 Overview (02/25/2011): Diet controlled HTN (hypertension) 10/07/2009 Cervical spondylosis 10/07/2009 Immunizations Immunization Administration Dates Next Due TDAP (7yrs+) 02/25/2011 Family History Medical History Relation Name Comments Cancer Father lung, cigs and alcohol CAD (Coronary Artery Disease) Maternal Grandmother 87 yo Diabetes Maternal Grandmother Relation Name Status Comments Father Maternal Grandmother Social History Tobacco Use Types Packs/Day Years Used Date Smoking Tobacco: Never Smokeless Tobacco: Former Quit: 07/31/1990 Comments:3 years of chewing tobacco in past Alcohol Use Standard Drinks/Week Comments Yes 0 (1 standard drink = 0.6 oz pure alcohol) overuse with stress late 2009 - Summer 2010. quit 02/20/11. 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 Not on file No t on file Not on file Not on file Not on file Not on file Last Filed Vital Signs Vital Sign Reading Time Taken Comments Blood Pressure 145/98 08/19/2011 11:19 AM BOARD CERTIFIED BEHAVIORAL ANALYST Pulse 84 08/19/2011 11:19 AM BOARD CERTIFIED BEHAVIORAL ANALYST Temperature - - Respiratory Rate 16 08/19/2011 10:57 AM BOARD CERTIFIED BEHAVIORAL ANALYST Oxygen Saturation - - Inhaled Oxygen Concentration - - Weight 88.2 kg (194 lb 6 oz) 08/19/2011 10:57 AM BOARD CERTIFIED BEHAVIORAL ANALYST Height 179.1 cm (5' 10.5) 08/19/2011 10:[address] Body Mass Index 27.5 08/19/2011 10:57 AM BOARD CERTIFIED BEHAVIORAL ANALYST Plan of Treatment Health Maintenance Due Date Last Done Comments ERIK (AGES 45-75) - COL ON CA SCREENING 1962 COLON MONITORING 1962 COLONOSCOPY - COLON CA SCREENING 1962 CT COLONOGRAPHY - COLON CA SCREENING 1962 Colorectal Cancer Screening 1962 FIT - COLON CA SCREENING 1962 FLEX SIG - COLON CA SCREENING 1962 HIV SCREENING 1977 HEPATITIS C SCREENING 02/16/1980 PNEUMOCOCCAL VACCINE 50+ (1 of 1 - PCV) 02/21/2012 ZOSTER VACCINE (1 of 2) 02/21/2012 LIPID TESTING 04/27/2015 04/27/2010, 10/09/2009 DTAP/TDAP/TD VACCINES (2 - T d or Tdap) 02/25/2021 02/25/2011 DEPRESSION SCREENING 07/31/2024 COVID-19 VACCINE (1 - 2023-2 5 season) 2025 INFLUENZA VACCINE (#1) 2025 Respiratory Syncytial Virus (RSV) Vaccine Pt: or over 60 yrs (1 - 1-dose 75+ series) 2037 HEPATITIS B VACCINE Aged Out No longe r eligible based on patient's age to complete this topic HIB VACCINE Aged Out No longer eligi ble based on patient's age to complete this topic HPV VACCINE Aged Out No longer eligi ble based on patient's age to complete this topic MENINGOCOCCAL (Group B) VACCINE SHARED DECISION-MAKING Aged Out No longer eligible based on patient's age to complete this topic MENINGOCOCCAL GROUPS A/C/Y/W VACCINE Aged Out No longer eligible b ased on patient's age to complete this topic Procedures Procedure Name Priority Date/Time Associated Diagnosis Comments LIPID PROFILE 04/27/2010 8:48 AM CDT from Last 3 Months or Most Recently Relevant to Health Maintenance Results * LIPID PROFILE (04/27/2010 8:48 AM CDT) Cholesterol 178 125 - 200 mg/dL [facility] Comment: Test Performed at: [email or web address] [address] [place], [place] [address] KINGSLEY HASTINGS DO,MPH HDL Cholesterol 52 > OR = 40 mg/dL [facility] Triglycerides 119 <150 mg/dL [facility] LDL Calculated 102 <130 mg/dL (calc) [facility] Comment: Desirable range <100 mg/dL for patients with CHD or diabetes and <70 mg/dL for diabetic patients with known heart disease. CHOL/HDLC RATIO 3.4 < OR = 5.0 (calc) [facility] 04/27/2010 8:48 AM CDT 04/28/2010 1:36 AM CDT us Ramesh Lacy MD LAB - CHEMISTRY ORDERABLES F inal Result [facility] [address] [place] [address] from Last 3 Months or Most Recently Relevant to Health Maintenance Care Teams Principal Administrative Clerk Relationship Specialty Start Date End Date Vladimir Villela MD [address] [facility] [address] [place] [address] PCP - General Internal Medicine 08/19/11
--- OUTSIDE RECORDS SUMMARY | 2025-05-15 13:43 | XMS_ITS | Clinical Summary ---
Author Organization [facility] Address [address] [place] [address] Care Team Providers Care Gastroenterology Manager Name Role Phone Terrell Pillai MD Primary Care Provider [phone] Alfie Bashir MD Unavailable [phone] Allergies No known active allergies Medications Tiadylt ER 240 mg 24 hr capsuleIndicatio ns:hypertension Take 1 capsule (240 mg total) by mouth every morning 1 Active lisinopriL (PRINIVIL,ZESTRI L) 2.5 mg tabletIndication s:hypertension Take 1 tablet (2.5 mg total) by mouth every morning 1 Active milk thistle 150 mg capsuleIndicatio ns:supplement Take 1 capsule by mouth every morning Active biotin 1 mg capsuleIndicatio ns:supplement Take 1 capsule by mouth every morning Active oxyCODONE (ROXICODONE) 5 mg immediate release tabletIndication s:Pain Take 1 tablet (5 mg total) by mouth every 6 (six) hours as needed for pain 5 tablet 1 Active acetaminophen (TYLENOL) 500 mg tablet Take 1 tablet (500 mg total) by mouth every 6 (six) hours as needed for pain 30 tablet 1 Active bacitracin-polym yxin B (bacitracin-poly myxin B) ointment Apply topically 2 (two) times a day 30 g 1 1 Active aspirin 500 mg tablet 1 tablet (500 mg total) as directed Active triamcinolone (KENALOG) 0.1 % creamIndications :Venous stasis dermatitis of both lower extremities Apply topically 2 (two) times a day as needed for rash On lower legs 80 g 3 2 Active Active Problems Problem Noted Date Diagnosed Date Alcoholic cirrhosis of liver with ascites 2024 Malignant melanoma 05/26/2022 Malignant melanoma of left lower leg 09/30/2021 Alcohol abuse 02/25/2011 Overview (06/17/2021): Dependence more 2010, with withdrawal symptoms January. HLD (hyperlipidemia) 11/17/2009 Overview (06/17/2021): Diet controlled HTN (hypertension) 10/07/2009 Cervical spondylosis 10/07/2009 Encounters Date Type Department Care Team Description 05/12/2025 Telephone [facility] Medicine Cardiology [address] [facility] [address] [place] [address] Chad Price RMA from Last 3 Months Surgical History Surgery Date Site/Laterality Comments TONSILLECTOMY CYST REMOVAL COLONOSCOPY SINUS SURGERY Medical History Medical History Date Comments Hypertension PONV (postoperative nausea and vomiting) x1 with sinus surgery- no delayed discharge- no problems with other surgery Melanoma of lower leg, left (HCC) 2020 Family History Medical History Relation Name Comments Lung cancer Father Anesthesia problems Neg Hx Relation Name Status Comments Father Social History Tobacco Use Types Packs/Day Years Used Date Smoking Tobacco: Former Cigarettes Smokeless Tobacco: Former Chew Quit: 1994 Tobacco Cessation:Counseling Given: Not Answered AUDIT-C Answer Date Recorded Q1: How often [...] on file 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 Gender Identity Not on file Sexual Orientation Not on file Obstetrics History Last Filed Vital Signs Vital Sign Reading Time Taken Comments Blood Pressure 149/79 02/11/2025 10:57 AM CDT Pulse 81 02/11/2025 10:57 AM CDT Temperature 36.7 C (98.1 F) 02/11/2025 10:57 AM CDT Respiratory Rate 16 11/26/2024 12:55 PM CDT Oxygen Saturation 96% 02/11/2025 10:57 AM CDT Inhaled Oxygen Concentration - - Weight 83.9 kg (185 lb) 02/11/2025 10:57 AM CDT Height 177.5 cm (5' 9.88) 02/11/2025 10:57 AM C DT Body Mass Index 26.63 02/11/2025 10:57 AM CDT Plan of Treatment Health Maintenance Due Date Last Done Comments Colon Cancer Screening-Colonoscopy 1962 Depression Screening 1962 Prostate Cancer Screening-PSA 1962 Hepatitis B Screening 02/21/1980 Regular Well Visit/Exam 18-64 02/21/1980 Pneumococcal vaccine <65 (1 of 2 - PCV) 1981 Zoster Vaccine (1 of 2) 02/21/2012 DTaP/Tdap/Td Vaccine (2 - Td or Tdap) 02/25/2021 02/25/2011 Influenza Vaccine (#1) 2025 , 04/17/2020, 04/19/2019, Additional history exists Hepatitis C Screening Completed 07/09/2021 Procedures Procedure Name Priority Date/Time Associated Diagnosis Comments HEPATITIS C ANTIBODY Routine 07/09/2021 12:04 PM 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 Does NOT exclude the possibility of recent exposure to HCV. Blood 07/09/2021 12:0 4 PM LOCAL INTERMODAL TRUCK DRIVER 07/09/2021 12:40 PM LOCAL INTERMODAL TRUCK DRIVER us Notinfile Unknown LAB MICROBIOLOGY - GENERAL ORD ERABLES Edited Result - Final [facility] Department [place] [address] from Last 3 Months or Most Recently Relevant to Health Maintenance Insurance [facility] H[facility]/PPO Address: [address] [address] [place] [address] [facility]/PPO Address: [address] [address] [place] [address] Care Teams Gastroenterology Manager Relationship Specialty Start Date End Date Terrell Pillai MD [address] [place] [address] PCP - General Family Medicine 06/08/21 Alfie Bashir MD [address] [place] [address] Medical Oncologist/Mathematics Technician Medical Oncology 11/25/24
--- OUTSIDE RECORDS SUMMARY | 2025-05-15 13:43 | XMS_ITS | Encounter Summary ---
Author Organization 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 Gender Identity Not on file Sexual Orientation Not on file documented as of this encounter Plan of Treatment Not on file documented as of this encounter Procedures Procedure Name Priority Date/Time Associated Diagnosis Comments SCAN - LABS 09/14/2021 documented in this encounter Results * SCAN - LABS (09/14/2021) us Provider Scanning Final Result documented in this encounter Visit Diagnoses Not on filedocumented in this encounter Care Teams Neurology Manager Relationship Specialty Start Date End Date Terrell Pillai MD [address] [place] [address] PCP - General Family Medicine 06/08/21 Alfie Bashir MD [address] [place] [address] Medical Oncologist/Hvac Service Tech Medical Oncology 11/25/24 documented as of this encounter
--- OUTSIDE RECORDS SUMMARY | 2025-05-15 13:43 | XMS_ITS | Encounter Summary ---
Author Organization [facility] Address [address] [place] [address] Phone Care Team Providers Care Legal Project Manager Name Role Phone Terrell Pillai MD Primary Care Provider [phone] Alfie Bashir MD Unavailable [phone] Encounter Details Date Type Department Care Team (Late st Contact Info) Description 05/12/2025 Telephone [facility] Medicine Cardiology [address] [facility] [address] [place] [address] Chad Price RMA Social History Tobacco Use Types Packs/Day Years [...] on file 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 We do not schedule lab appointments for cardiology patients. This will need to go to the person/ team that scheduled the labs. They have been attached. * Telephone Encounter - Chad Price RMA - 05/12/2025 11:53 AM CDT ----- Message from Brook Jones sent at 05/12/2025 11:49 AM CDT ----- Regarding: FW: Please change time of pts lab on 05/27 to 12:30 This is at not at the [facility]. I am forwarding it to scheduling pool ----- Message ----- From: Sabas Cross CMA Sent: 05/12/2025 11:46 AM CDT To: [facility] Scheduling Pool Subject: Please change time of pts lab on 05/27 to 12# documented in this encounter Plan of Treatment Not on file documented as of this encounter Visit Diagnoses Not on filedocumented in this encounter Care Teams Legal Project Manager Relationship Specialty Start Date End Date Terrell Pillai MD [address] [place] [address] PCP - General Family Medicine 06/08/21 Alfie Bashir MD [address] [place] [address] Medical Oncologist/Stock Controller Medical Oncology 11/25/24 documented as of this encounter
--- OUTSIDE RECORDS SUMMARY | 2025-05-15 13:44 | XMS_ITS | Clinical Summary ---
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 Gender Identity Not on file Sexual Orientation Not on file Plan of Treatment Health Maintenance Due Date Last Done Comments Colorectal Cancer Screening Colonoscopy (10 Years) 1962 Annual Physical 1965 Hepatitis C 02/21/1980 DTaP, Tdap and Td Vaccines ( 1 - Tdap) 1981 Pneumococcal Vaccine: 50+ Ye ars (1 of 1 - PCV) 02/21/2012 Zoster Vaccines (1 of 2) 02/21/2012 COVID-19 Vaccine ( - 2023-2 5 season) 2025 Influenza Adult (#1) 2025 RSV Immunization or 60+ Years (1 - 1-dose 75+ series) 2037 Meningococcal B Vaccine Aged Out No l onger eligible based on patient's age to complete this topic Meningococcal Vaccine Aged Out No laurence ra eligible based on patient's age to complete this topic RSV Immunizations Under 20 Months Aged Out No longer eligible based on patient's age to complete this topic
--- OUTSIDE RECORDS SUMMARY | 2025-05-15 13:44 | XMS_ITS | Encounter Summary ---
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
--- OUTSIDE RECORDS SUMMARY | 2025-05-15 13:44 | XMS_ITS | Encounter Summary ---
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 Gender Identity Not on file Sexual Orientation Not on file documented as of this encounter Plan of Treatment Not on file documented as of this encounter Procedures Procedure Name Priority Date/Time Associated Diagnosis Comments SCAN - PATHOLOGY 12/12/2023 10:47 AM CDT documented in this encounter Results * SCAN - PATHOLOGY (12/12/2023 10:47 AM CDT) us Provider Scanning Final Result documented in this encounter Visit Diagnoses Not on filedocumented in this encounter Care Teams Remedial Teacher Relationship Specialty Start Date End Date Terrell Pillai MD [address] [place] [address] PCP - General Family Medicine 06/08/21 Alfie Bashir MD [address] [place] [address] Medical Oncologist/Lawnmower Repair Mechanic Medical Oncology 11/25/24 documented as of this encounter
[2025-05-15 13:57] LABS: Hepatitis B Surface Antigen Negative (Negative)
[2025-05-15 14:03] LABS: HAV RESULT Negative (Negative); Hepatitis B Core IgM Result Negative (Negative)
--- NOTE | 2025-05-15 14:13 | PC.NURSE ---
pt in ultrasound at this time, blood cultures not obtained and antibiotic not started.
[2025-05-15] MEDS: cefTRIAXone 1 GM in SODIUM CHLORIDE 0.9% IV 50 ML 100 ML IVPB (15:35)
[2025-05-15] MEDS: AZITHROMYCIN IV 500 MG in SODIUM CHLORIDE 0.9% IV 250 ML IVPB (16:23)
[2025-05-15 16:27] LABS: Influenza A QL RT-PCR Negative (Negative); Influenza B QL RT-PCR Negative (Negative); RSV RNA, RT-PCR Negative (Negative); SARS-CoV-2 RNA PCR Negative (Negative)
--- NOTE | 2025-05-15 18:11 | ADMGEN ---
This patient, Larry Ruiz, was admitted to Medical Room 243-01. Patient/family oriented to hospital policies and general routines including ID bracelet, bed and alarms, visiting hours, pain management, procedures, bathroom and other care routines, personal items, smoking policy, room service/diet, and visiting hours. Information on how to activate the Rapid Response Team has been discussed. Patient/Family are encouraged to report perceived risks to care and to ask questions if they do not understand what they are told or what they should do.
[2025-05-16] VITALS (9 sets, daily range): BP systolic 93–131; BP diastolic 44–64; PULSE 73–92; RESP 16–20; TEMP 36.5–37.2; O2SAT 95–98; BMI 26.3
--- NOTE | 2025-05-16 00:37 | P.HP_ITS ---
H&P: HPI History of Present Illness Date/Time: 05/15/25 2200 Chief Complaint: Abdominal pain Narrative: This is a 65-year-old male patient who admits to drinking heavily in the past. However he stated that he is cut down significantly on the alcohol use. The patient came to the emergency room due to abdominal pain. He had bloating and nausea and dark stools today as well. He also reported yellowing of the eyes. This is been ongoing for the last couple weeks. His white count was noted to be 13.6. H&H is 11.3 and 33.8. MCV is 112.7. His sodium is low at 130. BUN is 45 creatinine 3.82. His GFR 16. Calcium is low at 8.0 and glucose 115. Total bilirubin 10.1, AST 62, alkaline phosphatase 177 and albumin 2.9. His urine is cloudy with 1+ protein, trace glucose, trace ketones, 1+ blood, 2+ bilirubin. Hepatitis panel is negative and viral serology negative. CT of the abdomen and pelvis was read as the following1. Multifocal bilateral pneumonia, with small pleural effusions. 2. Colitis. Portal hypertensive versus infectious/inflammatory. 3. Cirrhosis. Hepatosplenomegaly. Decompensated portal hypertension. 4. Distended gallbladder. If concern for cholecystitis, recommend ultrasound and/or HIDA scan. 5. No hydronephrosis. 6. Moderate volume ascites. Ultrasound of the abdomen was read as Cirrhotic disease of the liver with underlying liver lesion suspected. Contrast-enhanced MRI recommended. The patient was started on ceftriaxone and azithromycin in the emergency room as well as IV fluids. GI has been consulted and agreed to see the patient here rather than transfer the patient out. The patient is being admitted to observation status on the date of service of 05/15/2025. Review of Systems Constitutional: Constitutional: Reports as per HPI and Reports no additional constitutional complaints Eyes: Eyes: Reports as per HPI and Reports no additional eye complaints ENT: Reports no additional ear, nose, mouth, and throat complaints and Reports Normal hearing present Cardiovascular: Cardiovascular: Reports no additional cardiovascular complaints Respiratory: Respiratory: Reports as per HPI and Reports no additional respiratory complaints Gastrointestinal: Gastrointestinal: Reports as per HPI and Reports no a dditional gastrointestinal complaints Musculoskeletal: Musculoskeletal: Reports no additional musculoskeletal complaints Integumentary/Breasts: Skin/Breast: Reports system reviewed and no additional complaints, except as docu Neurologic: Reports no additional neurologic complaints and Reports Normal hearing present Psychiatric: Psychiatric: Reports no additional psychiatric complaints and Reports as per HPI Hematologic/Lymphatic: Hematologic/Lymphatic: Reports no additional hematologic/lymphatic complaints Allergic/Immunologic: Allergic/Immunologic: Reports no additional allergic/immunologic complaints PMF Past Medical History Medical History Melanoma Atherosclerosis of coronary artery of [place] heart without angina pectoris Personal history of malignant melanoma of skin Alcohol use disorder, moderate, dependence Alcoholic hepatitis without ascites Hepatic steatosis Essential (primary) hypertension Surgical History Surgical History History of tonsillectomy History of melanoma excision 07/09/2021 History of sinus surgery 1995 Social History Social History (Updated 05/26/25 @ 09:42 by Chetna Conner MA) Social History: The patient lives with his and has 1 daughter. He also has 4 step children. He stated that he quit drinking so months ago and only has an occasional drink. Code status: Full code Smoking status: Never smoker Second hand tobacco smoke exposure: No Alcohol intake: current Drinks per week: 2 Substance use: never Substance use type: does not use Do You Feel Safe in your Home?: Yes Lack of Transportation: No Lack of Food: Never True Current Housing: I Have Housing Concerned About Future Housing: No Difficulty Paying Gas/Electric Bills: No Difficulty Paying for Meds: No Currently Unemployed: No Education: High School Diploma/GED Difficulty w/ Childcare or Family Care: No Living arrangements: with family Occupation/Education: occupation Gender identity (if verbalized by the patient): Male Sexual Orientation (if Verbalized by the Patient): Straight or Heterosexual Spiritual care concerns: No Meds Home Medications and Allergies Home Medications ?Medication ?Instructions ?Recorded ?Confirmed ?Type milk thistle 500 mg capsule 500 mg PO DAILY 11/18/22 1 History omeprazole magnesium 20 mg 20 mg PO DAILY 06/27/23 History tablet,delayed release (Prilosec OTC) sildenafil 100 mg tablet (Viagra) 100 mg PO DAILY PRN sexual 09/18/24 05/26/25 Rx activity #30 tabs albuterol sulfate 90 mcg/actuation 1 inh inhalation QI D PRN shortness 05/26/25 05/26/25 Rx aerosol inhaler (Ventolin HFA) of breath or wheezing # 6.7 grams furosemide 40 mg tablet (Lasix) 40 mg PO DAILY #100 ta bs 05/26/25 05/26/25 Rx spironolactone 100 mg tablet 100 mg PO DAILY #100 tabs 05/26/25 05/26/25 Rx (Aldactone) Allergies Allergy/AdvReac Type Severity Reaction Status Date / Time No Known Allergies Allergy Verified 05/26/25 09:29 Vital Signs Vital Signs - 24 hr 05/15/25 10:53 05/15/25 11:24 05/15/25 11:38 Temperature 97.6 F 98.3 F 98.2 F Pulse Rate 100 91 92 Respiratory Rate 18 13 15 Blood Pressure 127/60 148/83 H 148/83 H Pulse Oximetry 97 100 100 Oxygen Delivery Room Air Room Air 05/15/25 11:45 05/15/25 12:39 05/15/25 13:10 Temperature Pulse Rate 85 80 78 Respiratory Rate 17 13 16 Blood Pressure 145/87 H 135/87 140/82 Pulse Oximetry 100 98 100 Oxygen Delivery 05/15/25 13:48 05/15/25 14:38 05/15/25 15:07 Temperature Pulse Rate 76 77 72 Respiratory Rate 14 15 15 Blood Pressure 141/90 H 138/84 135/68 Pulse Oximetry 100 97 99 Oxygen Delivery 05/15/25 15:15 05/15/25 15:31 05/15/25 15:45 Temperature Pulse Rate 77 71 75 Respiratory Rate 16 14 12 Blood Pressure Pulse Oximetry 100 99 100 Oxygen Delivery 05/15/25 16:00 05/15/25 16:30 05/15/25 17:02 Temperature Pulse Rate 75 69 75 Respiratory Rate 13 12 15 Blood Pressure 128/87 137/84 Pulse Oximetry 99 100 99 Oxygen Delivery 05/15/25 17:45 05/15/25 17:56 05/15/25 18:13 Temperature Pulse Rate 84 79 86 Respiratory Rate 14 14 16 Blood Pressure 135/86 136/85 147/78 H Pulse Oximetry 99 100 96 Oxygen Delivery 05/15/25 18:32 05/15/25 20:00 05/15/25 20:00 Temperature 97.9 F Pulse Rate 86 83 Respiratory Rate 16 16 Blood Pressure 124/56 L Pulse Oximetry 96 98 Oxygen Delivery Room Air Room Air Exam Const: General: cooperative, healthy appearing, comfortable, no acute distress, well developed, awake, Physically active, average body habitus and well nourished Nutritional Appearance: average body habitus and well nourished Orientation/consciousness: oriented to person, oriented to place, oriented to time and patient oriented x3 Limitations: no limitations Other: Jaundice HENMT: Head: normal to inspection, No palpable skull fracture present, normocephalic, atraumatic and abrasion Ears: hearing grossly normal bilaterally Face/Nose/Sinus: No nasal polyps present Mouth: Yes Normal oral and palatal mucosa present Throat: posterior oropharynx normal Eyes: General: appearance normal, both eyes and all related structures Alignment and Position: alignment normal Periorbital: periorbital findings normal Eyelids: eyelids normal Other: Scleras are icterus Neck: Neck: normal visual inspection, full ROM, no lymphadenopathy, trachea midline and supple Chest: Chest palpation & inspection: normal inspection of the chest Resp: Effort & Inspection: normal respiratory effort Auscultation: clear to auscultation bilaterally Cardio: Palpation: normal PMI Rate: regular rate Rhythm: regular rhythm Heart sounds: S1 normal heart sound present and S2 normal heart sound present Peripheral pulses: Peripheral pulses 2+ throughout GI: Inspection: normal to inspection Percussion: Yes normal to percussion Auscultation: normal bowel sounds Back/Spine/Pelvis: Back: no CVA tenderness Skin: General skin exam: normal color Lesions: no lesions Rashes: no rashes Trauma: no lacerations or abrasions Wounds: no wounds Hair: normal Nails: normal Other: Jaundice Neuro: General: oriented to person, oriented to place, oriented to time and patient oriented x3 Sensory Exam: normal sensation Extrem: General: normal to inspection Right upper extremity: normal to inspection and shoulder/upper arm Left upper extremity: normal to inspection and shoulder/upper arm Right lower extremity: normal to inspection Left lower extremity: normal to inspection Psych: Appearance: grossly normal Mental Status: mental status grossly normal Speech and movement: Normal speech and movement present Affect: n ormal affect Attitude: cooperative Thought process: Normal thought process present Thought content: Yes Normal thought content present Insight: Good insight present (Psych) Judgement: Good judgement present (Psych) H&P: Results Labs Labs: Short CBC 05/15/25 Range/Units 11:39 WBC 13.6 H (4.5-10.0) K/mm3 Hgb 11.3 L D (14.0-18.0) g/dL Hct 33.8 L (42.0-52.0) % Plt Count 133 L (150-375) k/mm3 BMP 05/15/25 11:39 Sodium 130 L Potassium 3.7 Chloride 94 L Carbon Dioxide 25 BUN 45 H D Creatinine 3.82 H Glucose 115 H Calcium 8.0 L Liver Function 05/15/25 Range/Units 11:39 Total Bilirubin 10.1 H (0.2-1.3) mg/dL AST 62 H (17-59) U/L ALT 26 (6-50) U/L Alkaline Phosphatase 177 H (38-126) U/L Albumin 2.9 L (3.5-5.1) g/dL Urine 05/15/25 Range/Units 11:39 Urine Color Dark yellow (Yellow) Urine Appearance Cloudy H (Clear) Urine pH 5.0 (5.0-9.0) Ur Specific Delight 1.017 (1.001-1.035) Urine Protein 1+ H (Negative) mg/dL Urine Glucose (UA) Trace H (Negative) mg/dL ECG Interpretation: ntervals Mckinney Rate: 91 P: 38 OH: 148 QRS: 8 QRSD: 105 T: 36 QT: 383 QTc: 472 Interpretive Statements SINUS RHYTHM NORMAL ECG Electronically Signed On 10-21-2020 11:23:24 CDT by Eric Mcghee D.O. Dictated By: Eric Mcghee DO 10/21/20 1123 Signed By: <Electronically signed by Eric Mcghee DO in OV> Imaging US - abdomen: Radiologist's impression: Impressions Abdomen/Pelvis CT 05/15/25 13:33 IMPRESSION: 1. Multifocal bilateral pneumonia, with small pleural effusions. 2. Colitis. Portal hypertensive versus infectious/inflammatory. 3. Cirrhosis. Hepatosplenomegaly. Decompensated portal hypertension. 4. Distended gallbladder. If concern for cholecystitis, recommend ultrasound and/or HIDA scan. 5. No hydronephrosis. 6. Moderate volume ascites. Upper Quadrant Ultrasound 05/15/25 15:25 Impression: Cirrhotic disease of the liver with underlying liver lesion suspected. Contrast- enhanced MRI recommended Assessment and Plan Assessment and plan (1) Pneumonia: Code(s): J18.9 - Pneumonia, unspecified organism Status: Acute Assessment and Plan: -the patient was started on azithromycin Rocephin. -DuoNebs -blood and sputum cultures are pending. (2) Ascites: Code(s): R18.8 - Other ascites Status: Acute Assessment and Plan: -the patient was placed on Rocephin for possible SBP Abdomen/Pelvis CT 05/15/25 13:33 IMPRESSION: 1. Multifocal bilateral pneumonia, with small pleural effusions. 2. Colitis. Portal hypertensive versus infectious/inflammatory. 3. Cirrhosis. Hepatosplenomegaly. Decompensated portal hypertension. 4. Distended gallbladder. If concern for cholecystitis, recommend ultrasound and/or HIDA scan. 5. No hydronephrosis. 6. Moderate volume ascites. Upper Quadrant Ultrasound 05/15/25 15:25 Impression: Cirrhotic disease of the liver with underlying liver lesion suspected. Contrast- enhanced MRI recommended -MRI was ordered -GI had been consulted from the ER in agreed to admit the patient here rather than being transferred to another facility. Meld scores is 35 with a 52.6 mortality rate. (3) Cirrhosis: Code(s): K74.60 - Unspecified cirrhosis of liver Status: Acute Assessment and Plan: -paracentesis is ordered for tomorrow. -patient would need 100 mg of spironolactone and 40 of Lasix. However he has acute renal failure. (4) Acute renal failure: Code(s): N17.9 - Acute kidney failure, unspecified Status: Acute Assessment and Plan: -BUN is 45 and creatinine 3.82. -I am holding his Lozol at this time. -hold nephrotoxic medication. -renal ultrasound -the patient was given a bolus of IV fluids in the emergency room. -I do not want to fluid overload him with too much IV fluid so I will just do a rate of 50 mL/hour. The patient already has moderate amount of ascites. Plan He has a history of melanoma and had a PET scan on November 28, 2023 Quality VTE Prophylaxis VTE prophylaxis: mechanical ordered
[2025-05-16] MEDS: SODIUM CHLORIDE 0.9% IV 1,000 ML 50 ML IV CONT (01:15)
[2025-05-16] MEDS: IPRATROPIUM 0.5 MG/ALBUTEROL SULFATE 2.5 MG (BASE) AMPUL.NEB 3 ML INHALATION ×2 (02:25→08:00)
[2025-05-16 03:52] LABS: Ammonia 14 umol/L (9-30); Estimated CRCL calculation 20 ml/min; Estimated Glomerular Filt Rate 17; Potassium 3.4 mmol/L (3.4-5.0)
[2025-05-16] MEDS: traMADol HCL (*CRX) 25 MG TABLET PO (04:06)
[2025-05-16 04:08] LABS: Hematocrit 29.1 % (42.0-52.0); Hemoglobin 9.7 g/dL (14.0-18.0); Immature Platelet Fraction Pct 5.0 % (0.9-11.2); Mean Corpuscular HGB Conc 33.3 g/dl (32-36); Mean Corpuscular Hemoglobin 37.5 pg (26-34); Mean Corpuscular Volume 112.4 fl (80-100); Platelet Count Result 105 k/mm3 (150-375); Red Blood Count 2.59 M/mm3 (4.6-6.20); White Blood Count 11.8 K/mm3 (4.5-10.0)
[2025-05-16 06:09] LABS: Anion Gap 11 mmol/L (4-12); Blood Urea Nitrogen 51 mg/dL (9-20); Calcium 8.0 mg/dL (8.4-10.2); Carbon Dioxide 23 mmol/L (22-30); Chloride 95 mmol/L (98-107); Glucose 110 mg/dL (65-110); Sodium 129 mmol/L (137-145)
--- NOTE | 2025-05-16 06:58 | P.PNIM_ITS ---
Progress Note: A&P Assessment and Plan (1) Acute liver failure: Code(s): K72.00 - Acute and subacute hepatic failure without coma Status: Acute Assessment and Plan: - t bili 10.1, AST 62, ALT 26, alk phos 177, INR 1.9 - improving today - MELD 34 - seen at [facility] GI/hepatology February 01 at which time he had a FibroScan consistent with advanced cirrhosis. - reports he has cut back significantly on drinking - CT A/P with cirrhosis with hepatosplenomegaly and decompensated portal hypertension. Moderate volume ascites. - started on IV Rocephin to cover for possible SBP - GI consulted, planning for paracentesis, possible EGD. No indication for steroids at this time. - daily CMP (2) Pneumonia: Code(s): J18.9 - Pneumonia, unspecified organism Status: Acute Assessment and Plan: - CT A/P showed multifocal opacities. Patient complains of a cough. -Afebrile, WBC 11.8. - continue Rocephin/azithromycin -DuoNebs -blood and sputum cultures are pending. (3) Ascites: Code(s): R18.8 - Other ascites Status: Acute Assessment and Plan: - on IV Rocephin - diagnostic paracentesis ordered (4) Acute renal failure: Code(s): N17.9 - Acute kidney failure, unspecified Status: Acute Assessment and Plan: - admit Cr 3.82. Cr was 0.7 09/2020. - likely prerenal in setting of cirrhosis, dehydration as patient reports PO intake x1 week. Hepatorenal syndrome is also a concern. - home Lozol on hold -hold nephrotoxic medication. -renal ultrasound pending -discussed with nephrology - will increase rate of IV fluids and monitor closely for volume overload (5) Cirrhosis: Qualifiers: Ascites presence: with ascites Hepatic cirrhosis type: alcoholic cirrhosis Qualified Code(s): K70.31 - Alcoholic cirrhosis of liver with ascites Code(s): K74.60 - Unspecified cirrhosis of liver Status: Acute Assessment and Plan: - management as above (6) Abdominal pain: Code(s): R10.9 - Unspecified abdominal pain Status: Acute Assessment and Plan: - complaining of diffuse abdominal discomfort related to distention - CT A/P with colitis, distended gallbladder, moderate volume ascites - low suspicion for cholecystitis given no specific right upper quadrant abdominal pain - suspect pain related to distention from ascites. (7) Melena: Code(s): K92.1 - Melena Status: Acute Assessment and Plan: - patient reported dark/tarry stools, initially loose stool, now more formed - Hgb 11.3 on admission, trended down to 9.7 this AM. Could be hemodilutional due to IV fluids. -CT A/P with colitis - portal hypertensive versus infectious/inflammatory - trend H&H q12h. Continue IV Protonix - GI following and considering EGD inpatient pending clinical course (8) Personal history of malignant melanoma of skin: Code(s): Z85.820 - Personal history of malignant melanoma of skin Status: Acute Assessment and Plan: -prior history of melanoma of the RLE s/p excision. Receives biannual PET scans Plan DVT prophylaxis: SCDs Code status: full code Dispo: TBD Subjective Date/time seen: 05/16/25 06:58 Interval history: Patient seen and examined at bedside. Still complaining of abdominal distention. Complains of dry cough and shortness of breath. Denies nausea/vomiting. Review of Systems Review of Systems: All systems reviewed & are unremarkable except as noted in HPI and below Exam Narrative: General: NAD Eyes: EOMI ENT: neck supple Cardiovascular: Regular rate and rhythm Respiratory: Clear to auscultation, respirations even and unlabored on RA Gastrointestinal: moderate distention with ascites, no significant tenderness with palpation Genitourinary: no suprapubic tenderness Musculoskeletal: No edema Skin: warm, dry Neuro: Alert. Psych: Mood appropriate Objective Data Vital Signs Vital Signs: Vital Signs - 24 hr 05/15/25 10:53 05/15/25 11:24 05/15/25 11:38 Temperature 97.6 F 98.3 F 98.2 F Pulse Rate 100 91 92 Respiratory Rate 18 13 15 Blood Pressure 127/60 148/83 H 148/83 H Pulse Oximetry 97 100 100 Oxygen Delivery Room Air Room Air 05/15/25 11:45 05/15/25 12:39 05/15/25 13:10 Temperature Pulse Rate 85 80 78 Respiratory Rate 17 13 16 Blood Pressure 145/87 H 135/87 140/82 Pulse Oximetry 100 98 100 Oxygen Delivery 05/15/25 13:48 05/15/25 14:38 05/15/25 15:07 Temperature Pulse Rate 76 77 72 Respiratory Rate 14 15 15 Blood Pressure 141/90 H 138/84 135/68 Pulse Oximetry 100 97 99 Oxygen Delivery 05/15/25 15:15 05/15/25 15:31 05/15/25 15:45 Temperature Pulse Rate 77 71 75 Respiratory Rate 16 14 12 Blood Pressure Pulse Oximetry 100 99 100 Oxygen Delivery 05/15/25 16:00 05/15/25 16:30 05/15/25 17:02 Temperature Pulse Rate 75 69 75 Respiratory Rate 13 12 15 Blood Pressure 128/87 137/84 Pulse Oximetry 99 100 99 Oxygen Delivery 05/15/25 17:45 05/15/25 17:56 05/15/25 18:13 Temperature Pulse Rate 84 79 86 Respiratory Rate 14 14 16 Blood Pressure 135/86 136/85 147/78 H Pulse Oximetry 99 100 96 Oxygen Delivery 05/15/25 18:32 05/15/25 20:00 05/15/25 20:00 Temperature 97.9 F Pulse Rate 86 83 Respiratory Rate 16 16 Blood Pressure 124/56 L Pulse Oximetry 96 98 Oxygen Delivery Room Air Room Air 05/16/25 00:00 05/16/25 02:25 05/16/25 04:00 Temperature 97.8 F 98.5 F Pulse Rate 89 86 92 Respiratory Rate 18 16 18 Blood Pressure 112/64 111/60 Pulse Oximetry 97 97 Oxygen Delivery Intake/Output Intake/Output: Intake & Output 05/13/25 05/14/25 05/15/25 05/16/25 23:59 23:59 23:59 23:59 Intake Total 300 400 Balance 300 400 Meds/Results Medications: Active Medications Generic Name Dose Route Start Last Admin Trade Name Freq PRN Reason Stop Dose Admin Albuterol/Ipratropium 3 ml 05/16/25 02:00 05/16/25 02:25 Ipratropium 0.5 Mg/Albuterol Sulfate 2.5 Mg (Base) Ampul.Neb 3 Ml INHALATION 3 ml Q6HRT MARV Administration Diltiazem HCl 240 mg 05/16/25 09:00 Diltiazem Hcl Cd 240 Mg Cap.24hr PO DAILY MARV Azithromycin 500 mg/ Sodium 250 mls @ 250 mls/hr 05/16/25 16:00 Chloride IVPB 05/20/25 16:59 Q24H MARV Ceftriaxone Sodium 2 gm/ 100 mls @ 200 mls/hr 05/16/25 16:00 Sodium Chloride IVPB Q24H MARV Sodium Chloride 1,000 mls @ 50 mls/hr 05/16/25 01:15 05/16/25 01:15 Normal Saline Iv IV CONT 50 mls/hr .Q20H MARV Administration Tramadol HCl 25 mg 05/16/25 01:24 05/16/25 04:06 Tramadol Hcl (*Crx) 25 Mg Tablet PO 25 mg Q4H PRN Administration Pain Rated 4-6 Radiology Results: ITS Impressions Abdomen/Pelvis CT 05/15/25 13:33 IMPRESSION: 1. Multifocal bilateral pneumonia, with small pleural effusions. 2. Colitis. Portal hypertensive versus infectious/inflammatory. 3. Cirrhosis. Hepatosplenomegaly. Decompensated portal hypertension. 4. Distended gallbladder. If concern for cholecystitis, recommend ultrasound and/or HIDA scan. 5. No hydronephrosis. 6. Moderate volume ascites. Upper Quadrant Ultrasound 05/15/25 15:25 Impression: Cirrhotic disease of the liver with underlying liver lesion suspected. Contrast- enhanced MRI recommended Labs Labs: Laboratory Results - last 24 hr 05/15/25 05/15/25 05/16/25 11:39 15:27 02:23 WBC 13.6 H 11.8 H RBC 3.00 L 2.59 L Hgb 11.3 L D 9.7 L Hct 33.8 L 29.1 L MCV 112.7 H 112.4 H MCH 37.7 H 37.5 H MCHC 33.4 33.3 RDW 15.9 H 15.9 H Plt Count 133 L 105 L MPV 10.7 H 10.7 H Immature Gran % (Auto) 1.3 H Neut % (Auto) 76.5 H Lymph % (Auto) 7.2 L [place] % (Auto) 13.3 H Eos % (Auto) 1.3 Baso % (Auto) 0.4 Lymph # (Auto) 0.98 [place] # (Auto) 1.8 H Eos # (Auto) 0.2 Baso # (Auto) 0.1 Abs Immat Gran (auto) 0.17 H Absolute Neuts (auto) 10.4 H Absolute Nucleated RBC 0.000 Band Neutrophils % Not Reportable Nucleated RBC % 0.0 Platelet Estimate Decreased % Immature Plt Fraction 5.4 5.0 Anisocytosis 1+ Ovalocytes 1+ [place] Cells 1+ Schistocytes None seen PT 21.0 H INR 1.9 APTT 39.7 H Sodium 130 L 129 L Potassium 3.7 3.4 Chloride 94 L 95 L Carbon Dioxide 25 23 Anion Gap 11 11 BUN 45 H D 51 H Creatinine 3.82 H 3.65 H Estim Creat Clear Calc 19 20 Estimated GFR 16 L 17 L Glucose 115 H 110 Calcium 8.0 L 8.0 L Total Bilirubin 10.1 H AST 62 H ALT 26 Alkaline Phosphatase 177 H Ammonia 14 Total Protein 7.3 Albumin 2.9 L Lipase 206 Urine Color Dark yellow Urine Appearance Cloudy H Urine pH 5.0 Ur Specific [place] 1.017 Urine Protein 1+ H Urine Glucose (UA) Trace H Urine Ketones Trace H Ur Blood (Man) 1+ H Urine Nitrate Negative Urine Bilirubin 2+ H Urine Urobilinogen 1.0 Add Ur Microanalysis Reviewed Leukocyte Esterase Rfl Trace H Urine RBC 3-5 H Urine WBC 6-10 H Ur Squamous Epith Cells Many H Urine Bacteria None seen Urine Casts 11-20 Granular Casts Present Ethyl Alcohol < 10 Hepatitis A IgM Ab Negative Hep Bs Antigen Negative Hep B Core IgM Ab Negative Hepatitis C Ab Screen Negative Influenza A (RT-PCR) Negative Influenza B (RT-PCR) Negative RSV (RT-PCR) Negative SARS-CoV-2 RNA (RT-PCR) Negative
[2025-05-16 08:29] LABS: INR 1.8; Prothrombin Time 20.3 Seconds (11.1-14.7)
--- NOTE | 2025-05-16 09:14 | P.CONGI_ITS ---
Assessment and Plan Assessment and plan (1) Cirrhosis: Qualifiers: Hepatic cirrhosis type: alcoholic cirrhosis Ascites presence: with ascites Qualified Code(s): K70.31 - Alcoholic cirrhosis of liver with ascites Code(s): K74.60 - Unspecified cirrhosis of liver Status: Acute (2) Acute liver failure: Qualifiers: Hepatic coma status: without hepatic coma Qualified Code(s): K72.00 - Acute and subacute hepatic failure without coma Code(s): K72.00 - Acute and subacute hepatic failure without coma Status: Acute (3) Elevated LFTs: Code(s): R79.89 - Other specified abnormal findings of blood chemistry Status: Acute (4) Hyponatremia: Code(s): E87.1 - Hypo-osmolality and hyponatremia Status: Acute (5) Thrombocytopenia: Code(s): D69.6 - Thrombocytopenia, unspecified Status: Acute (6) Hypoalbuminemia: Code(s): E88.09 - Other disorders of plasma-protein metabolism, not elsewhere classified Status: Acute (7) Jaundice: Code(s): R17 - Unspecified jaundice Status: Acute (8) Macrocytic anemia: Code(s): D53.9 - Nutritional anemia, unspecified Status: Acute (9) Leukocytosis: Qualifiers: Leukocytosis type: unspecified Qualified Code(s): D72.829 - Elevated white blood cell count, unspecified Code(s): D72.829 - Elevated white blood cell count, unspecified Status: Acute Plan 1. Cirrhosis-secondary to hepatic steatosis and ETOH abuse/acute liver failure/ETOH abuse/elevated LFTs/hyponatremia/hypoalbuminemia/thrombocytopenia: MELD NA 34. CT on admission showed cirrhosis, enlarged liver and recanalized umbilical vein. Labs on admission yesterday showed total bilirubin 10.1, AST 62, ALT 26, alkaline phosphatase 177, sodium 129, potassium 3.4, BUN 51, creatinine 3.65, GFR 17, platelets 105, INR 1.8. Prior labs on 09/18/2024 showed total bilirubin 1.7, AST 63, ALT 21 and alkaline phosphatase 224. Patient states that since his diagnosis melanoma of the left leg he had been drinking very heavily as he described as ?drinking like a fish?. During a recent PET scan the patient was noted to have nodular appearing liver and hepatic steatosis. He was seen at [facility] GI/hepatology February 01 at which time he had a FibroScan performed which showed CAP 400 and Kpa 45.5 consistent with advanced cirrhosis. Patient states that since his appointment with hepatology he has significantly decreased his alcohol intake but still occasionally has ?a beverage or 2?. Denies any prior history or symptoms of liver decompensation. Prior to his admission he had been experiencing diarrhea that was very dark in color along with scleral icterus, abdominal discomfort and abdominal bloating x1 week. During this time he states that he also had a very poor appetite and had not been eating or drinking very much at all and feels that he became very dehydrated during this time. Patient states that he is still having dark stools but states that his stools are slowly becoming more formed since admission the he was previously taking 400-800 mg of ibuprofen as needed a few times weekly which he recently discontinued. He denies any history or recent episodes of hematemesis or coffee-ground emesis. DDX: Hepatorenal syndrome vs Acute liver failure vs infection vs GI bleed vs [place] less likely alcoholic hepatitis given low liver transaminase levels * Liver disease/alcohol use likely a contributing factor for thrombocytopenia, hyponatremia and hypoalbuminemia * LFTs trending down since admission: Total bilirubin 10.1-->6.3, Indirect bili 2.7, AST 62-->54, ALT 26-->21, Alk Phos 177-->218 * Variceal screening: No prior history of varices. Patient has never had an EGD. Beta carla: Patient was not on a beta carla [employer] * Last paracentesis: Patient has never had previous episodes of ascites or need for paracentesis. * Paracentesis with fluid analysis pending which will allow us to rule out SBP as a possible cause of decompensation. Pneumonia may have also been a contributing factor. Patient on Rocephin. * MRI pending results * GI blood loss may also be a factor given melena, plan see problem #2 * Recommend Nephrology consultation for help with management * Current diuretics: No current diuretics * Diet: 2 gram sodium diet once diet advanced * History of HE: No prior history of HTN ammonia this admission 14 * Once again discussed the importance of alcohol cessation with the patient * Patient advised to follow up with either our office or continue care at [facility] GI/hepatology office for cirrhosis management and HCC screening 2. Macrocytic anemia/melena: ETOH abuse Hx. Patient has never had an EGD. Approximately 1 week prior to admission the patient started having dark liquid stools. He states that he had a bowel movement today that was still dark but becoming more formed. On admission HGB 11 and today HGB 10. INR 1.8. Patient denies any complaints of lower GI bleeding but does admit to recent symptoms consistent with upper GI bleeding. He had been experiencing a dry frequent cough prior to admission but denies any hematemesis, hemoptysis, or coffee- ground emesis. DDX: Peptic ulcer disease versus gastritis or esophagitis versus esophageal varices less likely neoplasm * Continue to monitor H/H and if it continues to trend down or if melena continues, we will arrange for EGD to look for possible upper GI source of blood loss and screen for varices * Primary care team to continue monitoring H&H and transfuse as needed if HGB < 7 * Care with NSAIDs, aspirin, or anticoagulants * start Protonix 40 mg IV daily * B12 and folate levels ordered and if deficient will need to be corrected Thank you very much for allowing me to share in the care of this very nice patient. This report may have been done utilizing a voice recognition system. Attempts have been made to correct errors. However, there may be uncorrected grammatical, spelling, and recognition errors present. GI Consult Note Consult date/time: 05/16/25 09:14 Reason for consult: Liver failure HPI: Larry Ruiz is a 65 year old male with a history of malignant myeloma, ETOH abuse, HTN, hepatic steatosis, and recently diagnosed cirrhosis. Patient presented to the emergency room yesterday with complaints of abdominal pain and yellowing of the eyes. Patient was admitted for pneumonia and ascites. GI has been consulted for liver failure. Patient was seen with his Tasia at his bedside throughout the entire visit. Patient states that over the past week he has been experiencing abdominal discomfort secondary to abdominal bloating. He states that this abdominal bloating started about a week ago. Once bloating started he was eating or drinking hardly anything other than Jell-O, fruit cups, and 1 sandwich last night. Prior to admission he was experiencing a dry constant cough but this has resolved since admission. Patient states that about a week ago he started having dark liquid bowel movements but thought that it may have been related to flu like symptoms that had been going around at work. Patient states that everyone else at work started feeling better but he did not. Patient states that over the past few days he is still having dark stools but states that it is becoming more formed. Prior to this acute onset of symptoms he states that he was typically having 2 formed non urgent bowel movements daily. Patient is being seen/monitored at [facility] for melanoma of the left leg patient is status post surgery and removal of multiple lymph nodes. Since surgery he has been experiencing edema in the left leg. During a recent PET scan patient was noted to have hepatic steatosis and was referred to GI/hematology at [facility] who he last saw in February 11 and during that visit he had a FibroScan performed which showed a CAP 400 and KPA of 45.5 more consistent with advanced cirrhosis but he had never had any prior signs or symptoms of liver decompensation. He denies nausea, vomiting, odynophagia, dysphagia, reflux, regurgitation, unexplained weight loss, constipation or hematochezia. Patient was previously taking ibuprofen a few times weekly 400- 800 mg each time but he has since discontinued. He denies any aspirin or anticoagulant use. Family history negative for CRC or IBD. ENDOSCOPY HISTORY: EGD: No prior history of EGD COLONOSCOPY: Last colonoscopy 12/13/[address] Esquivel for CRC screening and constipation Findings: In the rectum, a few medium-sized uncomplicated internal hemorrhoids were seen but hemorrhoids were not actively bleeding. Colonoscopy otherwise unremarkable LABS AND STOOL STUDIES: Labs 05/16/2025: WBC 12, Hgb 10, Hct 29, MCV 112, platelets 105, INR 1.8 Sodium 129, potassium 3.4, BUN 51, creatinine 3.65, GFR 17, calcium 8.0 Hepatic panel negative Labs 05/15/2025: WBC 14, Hgb 11, Hct 34, MCV 38, platelets 133, INR 1.9 Sodium 130, potassium 3.7, BUN 45, creatinine 3.82, GFR 16, calcium 8.0 Total bilirubin 10.1, AST 62, ALT 26, Alkaline Phos 177, albumin 2.9, lipase 206 Labs 09/18/2024: Total bilirubin 1.7, AST 63, ALT 21, alkaline phosphatase 220 IMAGING: CT abd/pelvis w/o contrast 05/15/2025: IMPRESSION: 1. Multifocal bilateral pneumonia, with small pleural effusions. 2. Colitis. Portal hypertensive versus infectious/inflammatory. 3. Cirrhosis. Hepatosplenomegaly. Decompensated portal hypertension. 4. Distended gallbladder. If concern for cholecystitis, recommend ultrasound and/or HIDA scan. 5. No hydronephrosis. 6. Moderate volume ascites. Abdominal Ultrasound 05/15/2025: Findings: LIVER: Moderate increased echogenicity of the liver. The liver contours are nodular. There are underlying subcentimeter liver lesions suspected. . Large amount of ascites. GALLBLADDER/BILIARY: Probable reactive thickening of the gallbladder wall, no cholelithiasis, subcentimeter probable gallbladder polyps with minimal sludge. CBD 3.6 mm. [place] sign negative. PANCREAS: Pancreas limited by bowel gas. Right Kidney: Right kidney was not imaged Impression: Cirrhotic disease of the liver with underlying liver lesion suspected. Contrast- enhanced MRI recommended Review of Systems 2 Constitutional: Constitutional: Reports as per HPI Eyes: Eyes: Denies blurry vision and Denies photophobia Comments: scleral icterus ENT: Reports system reviewed and no additional complaints, except as documented Cardiovascular: Cardiovascular: Reports as per HPI and Reports leg edema (left left following surgery ) Respiratory: Respiratory: Reports cough, Denies hemoptysis and Denies dyspnea on exertion Gastrointestinal: Gastrointestinal: Reports as per HPI Genitourinary: Genitourinary: Reports no additional male genitourinary complaints Musculoskeletal: Musculoskeletal: Reports no additional musculoskeletal complaints Neurologic: Reports system reviewed and no additional complaints, except as documented and Denies confusion Comments: No change in sleep habits or confusion [facility] Past Medical History Medical History (Updated 05/16/25 @ 12:25 by Izabella Lema APRN) Melanoma Atherosclerosis of coronary artery of [place] heart without angina pectoris Personal history of malignant melanoma of skin Alcohol use disorder, moderate, dependence Alcoholic hepatitis without ascites Hepatic steatosis Essential (primary) hypertension Surgical History Surgical History (Updated 05/16/25 @ 00:56 by Kisha Garces APRN) History of tonsillectomy History of melanoma excision 07/09/2021 History of sinus surgery 1995 Social History Social History (Updated 05/16/25 @ 00:57 by Kisha Garces APRN) Social History: The patient lives with his and has 1 daughter. He also has 4 step children. He stated that he quit drinking so months ago and only has an occasional drink. Code status: Full code Smoking status: Never smoker Second hand tobacco smoke exposure: No Alcohol intake: current Drinks per week: 2 Substance use: never Substance use type: does not use Lack of Transportation: No Lack of Food: Never True Current Housing: I Have Housing Concerned About Future Housing: No Difficulty Paying Gas/Electric Bills: No Difficulty Paying for Meds: No Currently Unemployed: No Education: High School Diploma/GED Difficulty w/ Childcare or Family Care: No Living arrangements: with family Occupation/Education: occupation Gender identity (if verbalized by the patient): Male Sexual Orientation (if Verbalized by the Patient): Straight or Heterosexual Spiritual care concerns: No Meds Home Medications and Allergies Home Medications ?Medication ?Instructions ?Recorded ?Confirmed ?Type indapamide 2.5 mg tablet 2.5 mg PO DAILY 11/18/22 History milk thistle 500 mg capsule 500 mg PO DAILY 11/18/22 1 History omeprazole magnesium 20 mg 20 mg PO DAILY 06/27/23 History tablet,delayed release (Prilosec OTC) diltiazem HCl 240 mg capsule,24 240 mg PO BID #180 cap s 09/17/23 05/15/25 Rx hr,extended release sildenafil 100 mg tablet (Viagra) 100 mg PO DAILY PRN sexual 09/18/24 05/15/25 Rx activity #30 tabs Allergies Allergy/AdvReac Type Severity Reaction Status Date / Time No Known Allergies Allergy Verified 05/15/25 18:16 Vital Signs Vital Signs - 24 hr 05/15/25 10:53 05/15/25 11:24 05/15/25 11:38 Temperature 97.6 F 98.3 F 98.2 F Pulse Rate 100 91 92 Respiratory Rate 18 13 15 Blood Pressure 127/60 148/83 H 148/83 H Pulse Oximetry 97 100 100 Oxygen Delivery Room Air Room Air 05/15/25 11:45 05/15/25 12:39 05/15/25 13:10 Temperature Pulse Rate 85 80 78 Respiratory Rate 17 13 16 Blood Pressure 145/87 H 135/87 140/82 Pulse Oximetry 100 98 100 Oxygen Delivery 05/15/25 13:48 05/15/25 14:38 05/15/25 15:07 Temperature Pulse Rate 76 77 72 Respiratory Rate 14 15 15 Blood Pressure 141/90 H 138/84 135/68 Pulse Oximetry 100 97 99 Oxygen Delivery 05/15/25 15:15 05/15/25 15:31 05/15/25 15:45 Temperature Pulse Rate 77 71 75 Respiratory Rate 16 14 12 Blood Pressure Pulse Oximetry 100 99 100 Oxygen Delivery 05/15/25 16:00 05/15/25 16:30 05/15/25 17:02 Temperature Pulse Rate 75 69 75 Respiratory Rate 13 12 15 Blood Pressure 128/87 137/84 Pulse Oximetry 99 100 99 Oxygen Delivery 05/15/25 17:45 05/15/25 17:56 05/15/25 18:13 Temperature Pulse Rate 84 79 86 Respiratory Rate 14 14 16 Blood Pressure 135/86 136/85 147/78 H Pulse Oximetry 99 100 96 Oxygen Delivery 05/15/25 18:32 05/15/25 20:00 05/15/25 20:00 Temperature 97.9 F Pulse Rate 86 83 Respiratory Rate 16 16 Blood Pressure 124/56 L Pulse Oximetry 96 98 Oxygen Delivery Room Air Room Air 05/16/25 00:00 05/16/25 02:25 05/16/25 04:00 Temperature 97.8 F 98.5 F Pulse Rate 89 86 92 Respiratory Rate 18 16 18 Blood Pressure 112/64 111/60 Pulse Oximetry 97 97 Oxygen Delivery 05/16/25 08:00 05/16/25 08:00 05/16/25 08:06 Temperature 97.7 F Pulse Rate 90 87 90 Respiratory Rate 18 16 18 Blood Pressure 119/64 Pulse Oximetry 95 Oxygen Delivery Exam 2 Const: General: comfortable and no acute distress HENMT: Face/Nose/Sinus: Normal nares present Mouth: Yes moist mucous membranes Eyes: General: appearance abnormal, both eyes Sclera: scleral abnormality (scleral icterus) bilateral Pupils: Equal, round and reactive pupils present Neck: Neck: supple Lymphatic: lymphadenopathy not noted Resp: Effort & Inspection: normal respiratory effort Auscultation: clear to auscultation bilaterally Cardio: Rate: regular rate Rhythm: regular rhythm GI: Inspection: distended GI Palp: Yes Firmness to palpation present (GI) and Yes Tenderness to palpation present (GI) (mild tenderness with palpation) Auscultation: normal bowel sounds Skin: General skin exam: No normal color (jaundice) Neuro: Speech: normal speech Motor exam (neuro): 5/5 motor strength present throughout Sensory Exam: normal sensation Other: No asterixis Extrem: General: edema left Psych: Mental Status: mental status grossly normal Affect: normal affect Results Labs 05/16/25 02:23 05/16/25 08:06 Labs: Short CBC 05/15/25 05/16/25 Range/Units 11:39 02:23 WBC 13.6 H 11.8 H (4.5-10.0) K/mm3 Hgb 11.3 L D 9.7 L (14.0-18.0) g/dL Hct 33.8 L 29.1 L (42.0-52.0) % Plt Count 133 L 105 L (150-375) k/mm3 BMP 05/15/25 05/16/25 11:39 02:23 Sodium 130 L 129 L Potassium 3.7 3.4 Chloride 94 L 95 L Carbon Dioxide 25 23 BUN 45 H D 51 H Creatinine 3.82 H 3.65 H Glucose 115 H 110 Calcium 8.0 L 8.0 L Liver Function 05/15/25 Range/Units 11:39 Total Bilirubin 10.1 H (0.2-1.3) mg/dL AST 62 H (17-59) U/L ALT 26 (6-50) U/L Alkaline Phosphatase 177 H (38-126) U/L Albumin 2.9 L (3.5-5.1) g/dL Urine 05/15/25 Range/Units 11:39 Urine Color Dark yellow (Yellow) Urine Appearance Cloudy H (Clear) Urine pH 5.0 (5.0-9.0) Ur Specific [place] 1.017 (1.001-1.035) Urine Protein 1+ H (Negative) mg/dL Urine Glucose (UA) Trace H (Negative) mg/dL
[2025-05-16] MEDS: dilTIAZem HCL CD 240 MG CAP.24HR PO (09:44)
--- NOTE | 2025-05-16 10:45 | P.CONNP_ITS ---
Assessment and Plan Assessment and plan (1) Acute kidney injury: Code(s): N17.9 - Acute kidney failure, unspecified Status: Acute Assessment and Plan: * as noted by admission labs (creatinine of 3.82mg/dL) * normal baseline creatinine by previous records * suspect multifactorial etiololgy: * prerenal factors * diuretic use (indapamide) [employer]ERSON[employer] * decompensated liver disease * relative anemia * infection (pneumonia) * early or variation of HRS(?) * other(?) * check urine studies and renal ultrasound * continue trial of gentle IVFs * follow repeat labs and UOP (2) Acute liver failure: Qualifiers: Hepatic coma status: without hepatic coma Qualified Code(s): K72.00 - Acute and subacute hepatic failure without coma Code(s): K72.00 - Acute and subacute hepatic failure without coma Status: Acute Assessment and Plan: * as noted by admission labs * however, LFTs appear to be slowly improving * complicated by known liver cirrhosis (see #5) (3) Pneumonia: Code(s): J18.9 - Pneumonia, unspecified organism Status: Acute Assessment and Plan: * suggested by admission imaging * however, afebrile, no significant WBC but has cough * on empiric antibiotics * follow culture data (4) Ascites: Code(s): R18.8 - Other ascites Status: Acute Assessment and Plan: * s/p large volume paracentesis (on 05/16) * started on IV Rocephin to cover for possible SBP * however, peritoneal fluid analysis not consistent with SBP * follow culture data (5) Cirrhosis: Qualifiers: Hepatic cirrhosis type: alcoholic cirrhosis Ascites presence: with ascites Qualified Code(s): K70.31 - Alcoholic cirrhosis of liver with ascites Code(s): K74.60 - Unspecified cirrhosis of liver Status: Acute Assessment and Plan: * seen at [facility] GI/hepatology February 01 * FibroScan consistent with advanced cirrhosis * reports he has cut back significantly on drinking * admision CT A/P with cirrhosis with hepatosplenomegaly and decompensated portal hypertension along with moderate volume ascites * getting IV albumin (6) Abdominal pain: Code(s): R10.9 - Unspecified abdominal pain Status: Acute Assessment and Plan: * presumably secondary to abdominal distension from ascites * CT A/P with colitis, distended gallbladder, moderate volume ascites * continue supportive therapy as noted above I will continue to follow the patient with you while he remains hospitalized and make further recommendations as deemed necessary. Thank you for allowing me to participate in the care of this patient. L History of Present Illness Reason for Consult Consult date: 05/16/25 Reason for consult: acute renal failure Chief Complaint Chief complaint: Acute Liver Failure/ARIANA History of Present Illness Narrative: The patient is a 65-year-old male a past medical history as outlined presented to [facility] due to complaints of abdominal pain. The patient reports that he has noted abdominal bloating and swelling in association with nausea the past few days. He does have a known history alcohol abuse but states he has cut down significantly since his recent diagnosis liver cirrhosis. He also reports yellowing of his eyes that seems to have been slowly and progressively getting worse over last few weeks. Given the progression of these symptoms despite conservative therapy, he presented to the emergency room further assessment. Workup and evaluation emergency room demonstrated the patient be hemodynamically stable and afebrile. Routine blood test noted a white blood cell count of 13.6, hemoglobin 11.3, sodium 130, BUN 45, creatinine 3.82, calcium 8.0, glucose 115 an associated elevated LFTs with a total bilirubin of 10.1, T 62, alkaline phosphatase 177, albumin of 2.9. his hepatitis panel and viral serology was negative. Subsequent CT scan of the abdomen pelvis demonstrated multifocal bilateral pneumonia with small pleural effusions, colitis liver cirrhosis with hepatosplenomegaly and decompensated portal hypertension distended gallbladder, and moderate volume ascites. His subsequent ultrasound of the abdomen demonstrated cirrhotic disease of the liver. After appropriate cultures were obtained, he was started on IV antibiotics for his suspected pneumonia and IV fluids for his acute kidney injury. He was subsequently admitted to hospital for further evaluation therapy. Since his admission his renal function is only mildly improved he still insignificant discomfort due to his abdominal distension most likely secondary to his ascites. Renal consultation was requested due to his acute kidney injury/acute renal failure. From review of his previous labs, his renal function is usually within normal limits. He does admit that he has not been eating and drinking very well secondary to his abdominal pain and abdominal distension. In spite of his renal dysfunction as noted by his admission labs, he reports no significant decline in his urine output that he is aware or any other issues complaints with regard to hematuria, dysuria, CVA/flank pain foamy urine, or any other urinary finding. Furthermore, he has never been told he has had any issues or problems with this kidney function in the past. Currently, the time my evaluation, he is in no acute distress. Review of Systems 2 Review of Systems: As per HPI. [facility] Past Medical History Medical History Melanoma Atherosclerosis of coronary artery of [place] heart without angina pectoris Personal history of malignant melanoma of skin Alcohol use disorder, moderate, dependence Alcoholic hepatitis without ascites Hepatic steatosis Essential (primary) hypertension Surgical History Surgical History History of tonsillectomy History of melanoma excision 07/09/2021 History of sinus surgery 1995 Social History Social History (Updated 05/26/25 @ 09:42 by Chetna Conner MA) Social History: The patient lives with his and has 1 daughter. He also has 4 step children. He stated that he quit drinking so months ago and only has an occasional drink. Code status: Full code Smoking status: Never smoker Second hand tobacco smoke exposure: No Alcohol intake: current Drinks per week: 2 Substance use: never Substance use type: does not use Do You Feel Safe in your Home?: Yes Lack of Transportation: No Lack of Food: Never True Current Housing: I Have Housing Concerned About Future Housing: No Difficulty Paying Gas/Electric Bills: No Difficulty Paying for Meds: No Currently Unemployed: No Education: High School Diploma/GED Difficulty w/ Childcare or Family Care: No Living arrangements: with family Occupation/Education: occupation Gender identity (if verbalized by the patient): Male Sexual Orientation (if Verbalized by the Patient): Straight or Heterosexual Spiritual care concerns: No Meds Home Medications and Allergies Home Medications ?Medication ?Instructions ?Recorded ?Confirmed ?Type milk thistle 500 mg capsule 500 mg PO DAILY 11/18/22 1 History omeprazole magnesium 20 mg 20 mg PO DAILY 06/27/23 History tablet,delayed release (Prilosec OTC) sildenafil 100 mg tablet (Viagra) 100 mg PO DAILY PRN sexual 09/18/24 05/26/25 Rx activity #30 tabs albuterol sulfate 90 mcg/actuation 1 inh inhalation QI D PRN shortness 05/26/25 05/26/25 Rx aerosol inhaler (Ventolin HFA) of breath or wheezing # 6.7 grams furosemide 40 mg tablet (Lasix) 40 mg PO DAILY #100 ta bs 05/26/25 05/26/25 Rx spironolactone 100 mg tablet 100 mg PO DAILY #100 tabs 05/26/25 05/26/25 Rx (Aldactone) Allergies Allergy/AdvReac Type Severity Reaction Status Date / Time No Known Allergies Allergy Verified 05/26/25 09:29 Vital Signs Vital Signs Temp Pulse Resp BP Pulse Ox O2 Del Method 05/16/25 10:36 97.8 F 85 16 131/61 95 05/16/25 08:06 90 18 05/16/25 08:00 97.7 F 87 16 119/64 95 05/16/25 08:00 90 18 05/16/25 04:00 98.5 F 92 18 111/60 97 05/16/25 02:25 86 16 05/16/25 00:00 97.8 F 89 18 112/64 97 05/15/25 20:00 97.9 F 83 16 124/56 L 98 05/15/25 20:00 Room Air Exam 2 Narrative: GENERAL APPEARANCE: well developed well nourished male in no acute distress HEENT: normocephalic, atraumatic, normal conjunctiva and sclera, nares patient NECK: no lymphadenopathy, thyromegaly, or JVD MOUTH: normal lips, teeth, and gums CARDIOVASCULAR: RRR, normal S1 and S2, no rub detected RESPIRATORY: clear to auscultation bilaterally ABDOMEN: soft, nontender, + distension (ascites), positive bowel sounds present EXTREMITIES: no evidence of cyanosis, clubbing, or edema NEUROLOGICAL: alert and oriented x 3; CN II - XII intact bilaterally; no focal deficits noted Results Lab Results 05/20/25 10:33 05/20/25 04:34 Lab results: Most recent lab results Calcium 7.9 mg/dL (8.4-10.2) L 05/16/25 08:06
[2025-05-16 10:52] LABS: Alanine Aminotransferase 21 U/L (6-50); Albumin Level 2.3 g/dL (3.5-5.1); Alkaline Phosphatase 218 U/L (38-126); Anion Gap 6 mmol/L (4-12); Aspartate Amino Transferase 54 U/L (17-59); Bilirubin,Total 6.3 mg/dL (0.2-1.3); Blood Urea Nitrogen 52 mg/dL (9-20); Calcium 7.9 mg/dL (8.4-10.2); Carbon Dioxide 25 mmol/L (22-30); Chloride 97 mmol/L (98-107); Estimated CRCL calculation 21 ml/min; Estimated Glomerular Filt Rate 18; Glucose 108 mg/dL (65-110); Potassium 4.3 mmol/L (3.4-5.0); Sodium 128 mmol/L (137-145); Total Protein 6.0 g/dL (6.3-8.2)
--- NOTE | 2025-05-16 12:15 | PC.NURSE ---
pt taken down for MRI
--- NOTE | 2025-05-16 13:15 | CY_PTH ---
PATIENT: Larry Ruiz LOC: [id number] U#:[id number] AGE/SX: 65/M ROOM: 243 RE05/16/[address]: SILVANO John : 1960 BED: 01 DIS: 05/20/2025 SPEC #: [id number] RECD: 05/16/25 13:50 STATUS: WAQAS REQ #: [id number] ESAU: 05/16/25 13:[address]: Kisha Garces DEPT: [facility] Cytology RECD BY: Stephanie Valdez ENTERED: 05/16/25 13:51 SP TYPE: Cytology OTHR DR: MD Terrell Ryder MD Onyema Nnanna, MD Natalie J. Ross, PA Francisco M. Tagle, MD Tissues: A - Ascites Fluid Procedures: Calderon Keratin Hematoxylin and Eosin Stain Cell Block [id number] Cytopathology Cytospin
[2025-05-16 14:13] LABS: Appearance Peritoneal Fluid Hazy (Clear); Color Peritoneal Fluid Yellow (Colorless); Nucleated Cells Peritoneal Flu 304 /uL (0-500); Source Peritoneal Fluid Peritoneal Fluid
[2025-05-16 14:14] LABS: Lymphocytes Peritoneal Fluid 28 %; Macrophages Peritoneal Fluid 36 %; Monocytes Peritoneal Fluid 1 %; Neutrophils Peritoneal Fluid 35 % (0-25)
--- NOTE | 2025-05-16 14:25 | PC.NURSE ---
pt returned from paracentesis and MRI
[2025-05-16 15:12] LABS: Vitamin B12 > 1000.0 pg/mL (239-931)
[2025-05-16] MEDS: cefTRIAXone 2 GM in SODIUM CHLORIDE 0.9% IV 100 ML 200 ML IVPB (16:45)
[2025-05-16] MEDS: AZITHROMYCIN IV 500 MG in SODIUM CHLORIDE 0.9% IV 250 ML IVPB (17:50)
[2025-05-16] MEDS: ALBUMIN HUMAN IVPB (18:58)
[2025-05-16 20:49] LABS: Urea Random Urine 551 MG/DL
[2025-05-16 20:50] LABS: Total Protein Urine Random 23 mg/dL; Ur Ttl Prot Creatinine Ratio 0.16 mg/mg (0-0.20)
[2025-05-16 21:12] LABS: Urine Eos QC 2nd Tech Confirmed
[2025-05-17] VITALS (12 sets, daily range): BP systolic 96–139; BP diastolic 40–71; PULSE 68–95; RESP 16–20; TEMP 36.5–36.9; O2SAT 92–98
[2025-05-17 05:33] LABS: Hematocrit 25.7 % (42.0-52.0); Hemoglobin 8.6 g/dL (14.0-18.0); Immature Granulocyte Percent A 0.9 % (0-0.5); Immature Platelet Fraction Pct 3.9 % (0.9-11.2); Lymphocytes Absolute Auto 1.27 K/mm3 (0.9-3.2); Mean Corpuscular HGB Conc 33.5 g/dl (32-36); Mean Corpuscular Hemoglobin 37.9 pg (26-34); Mean Corpuscular Volume 113.2 fl (80-100); Nucleated Red Blood Cells Absolute Auto 0.000 K/mm3 (0.0-0.012); Nucleated Red Blood Cells Perc 0.0 % (0.0-0.2); Platelet Count Result 95 k/mm3 (150-375); Red Blood Count 2.27 M/mm3 (4.6-6.20); White Blood Count 6.4 K/mm3 (4.5-10.0)
[2025-05-17 05:53] LABS: Alanine Aminotransferase 18 U/L (6-50); Albumin Level 2.8 g/dL (3.5-5.1); Alkaline Phosphatase 138 U/L (38-126); Anion Gap 7 mmol/L (4-12); Aspartate Amino Transferase 51 U/L (17-59); Bilirubin,Total 6.0 mg/dL (0.2-1.3); Blood Urea Nitrogen 52 mg/dL (9-20); Calcium 8.4 mg/dL (8.4-10.2); Carbon Dioxide 25 mmol/L (22-30); Chloride 100 mmol/L (98-107); Creatine Kinase 27 U/L (55-170); Estimated CRCL calculation 26 ml/min; Estimated Glomerular Filt Rate 23; Glucose 98 mg/dL (65-110); Potassium 4.4 mmol/L (3.4-5.0); Sodium 132 mmol/L (137-145); Total Protein 6.2 g/dL (6.3-8.2)
[2025-05-17 06:07] LABS: Anisocytosis 1+; Burr Cells 1+; Ovalocytes 1+
[2025-05-17 06:08] LABS: Schistocytes None Seen
--- NOTE | 2025-05-17 06:57 | P.PNIM_ITS ---
Progress Note: A&P Assessment and Plan (1) Acute liver failure: Qualifiers: Hepatic coma status: without hepatic coma Qualified Code(s): K72.00 - Acute and subacute hepatic failure without coma Code(s): K72.00 - Acute and subacute hepatic failure without coma Status: Acute Assessment and Plan: - initial t bili 10.1, AST 62, ALT 26, alk phos 177, INR 1.9 - continues to improve - MELD 34 - seen at [facility] GI/hepatology February 01 at which time he had a FibroScan consistent with advanced cirrhosis. - reports he has cut back significantly on drinking. Encouraged complete cessation. - CT A/P with cirrhosis with hepatosplenomegaly and decompensated portal hypertension. Moderate volume ascites. - started on IV Rocephin to cover for possible SBP - s/p paracentesis 05/17 with 2350 cc fluid removed. Fluid analysis not consistent with SBP. - GI following. No indication for steroids or EGD at this time. Ordered albumin 80mg x1. - daily CMP (2) Acute renal failure: Qualifiers: Acute renal failure type: unspecified Qualified Code(s): N17.9 - Acute kidney failure, unspecified Code(s): N17.9 - Acute kidney failure, unspecified Status: Acute Assessment and Plan: - admit Cr 3.82. Cr was 0.7 09/2020. - likely prerenal in setting of cirrhosis, dehydration as patient reports poor PO intake x1 week. Hepatorenal syndrome is also a concern. - renal US with no hydronephrosis - home Lozol on hold - s/p IV fluids. PO intake improving. - hold nephrotoxic medication. - Cr improved with IV fluids and albumin. - monitor urine output - nephrology following (3) Pneumonia: Code(s): J18.9 - Pneumonia, unspecified organism Status: Acute Assessment and Plan: - CT A/P showed multifocal opacities. Patient complains of a cough. -Afebrile. Initial WBC 11.8, improved. - continue Rocephin/azithromycin - DuoNebs -blood and sputum cultures are pending. (4) Ascites: Code(s): R18.8 - Other ascites Status: Acute Assessment and Plan: - management as above (5) Cirrhosis: Qualifiers: Ascites presence: with ascites Hepatic cirrhosis type: alcoholic cirrhosis Qualified Code(s): K70.31 - Alcoholic cirrhosis of liver with ascites Code(s): K74.60 - Unspecified cirrhosis of liver Status: Acute Assessment and Plan: - management as above (6) Abdominal pain: Code(s): R10.9 - Unspecified abdominal pain Status: Acute Assessment and Plan: - complaining of diffuse abdominal discomfort related to distention - CT A/P with colitis, distended gallbladder, moderate volume ascites - low suspicion for cholecystitis given no specific right upper quadrant abdominal pain - suspect pain related to distention from ascites. (7) Melena: Code(s): K92.1 - Melena Status: Acute Assessment and Plan: - patient reported dark/tarry stools, initially loose stool, now more formed - Hgb 11.3 on admission, trended down to 8.6 this AM. Could be hemodilutional due to IV fluids vs. bleeding - CT A/P with colitis - portal hypertensive versus infectious/inflammatory - monitor - GI following and completed guaiac stool which was negative. Stopped IV protonix. (8) Personal history of malignant melanoma of skin: Code(s): Z85.820 - Personal history of malignant melanoma of skin Status: Acute Assessment and Plan: -prior history of melanoma of the RLE s/p excision. Receives biannual PET scans Plan DVT prophylaxis: SCDs Code status: full code Dispo: likely home in 1-2 days if continues to improve Subjective Date/time seen: 05/17/25 06:57 Interval history: Patient seen and examined at bedside. Overall feeling better. Abdominal distention improved. Still complaining of mild shortness of breath. Review of Systems Review of Systems: All systems reviewed & are unremarkable except as noted in HPI and below Exam Narrative: General: NAD Eyes: EOMI ENT: neck supple Cardiovascular: Regular rate and rhythm Respiratory: Clear to auscultation, respirations even and unlabored on RA Gastrointestinal: soft, nontender Genitourinary: no suprapubic tenderness Musculoskeletal: No edema Skin: warm, dry Neuro: Alert. Psych: Mood appropriate Objective Data Vital Signs Vital Signs: Vital Signs - 24 hr 05/16/25 08:00 05/16/25 08:00 05/16/25 08:06 Temperature 97.7 F Pulse Rate 90 87 90 Respiratory Rate 18 16 18 Blood Pressure 119/64 Pulse Oximetry 95 Oxygen Delivery 05/16/25 09:45 05/16/25 11:56 05/16/25 15:41 Temperature 97.8 F 97.7 F Pulse Rate 85 74 Respiratory Rate 16 18 Blood Pressure 131/61 126/54 L Pulse Oximetry 95 98 Oxygen Delivery Room Air 05/16/25 20:00 05/16/25 20:00 05/16/25 23:30 Temperature 98.7 F 98.9 F Pulse Rate 76 73 Respiratory Rate 20 20 Blood Pressure 113/56 L 93/44 L Pulse Oximetry 95 95 Oxygen Delivery Room Air 05/17/25 04:00 Temperature 98.5 F Pulse Rate 68 Respiratory Rate 20 Blood Pressure 96/40 L Pulse Oximetry 92 Oxygen Delivery Intake/Output Intake/Output: Intake & Output 05/14/25 05/15/25 05/16/25 05/17/25 23:59 23:59 23:59 23:59 Intake Total 300 1990 720 Output Total 2350 600 Balance 300 -360 120 Meds/Results Medications: Active Medications Generic Name Dose Route Start Last Admin Trade Name Freq PRN Reason Stop Dose Admin Albuterol/Ipratropium 3 ml 05/16/25 02:00 05/16/25 14:09 Ipratropium 0.5 Mg/Albuterol Sulfate 2.5 Mg (Base) Ampul.Neb 3 Ml INHALATION Not Given Q6HRT MARV Diltiazem HCl 240 mg 05/16/25 09:00 05/16/25 09:44 Diltiazem Hcl Cd 240 Mg Cap.24hr PO 240 mg DAILY MARV Administration Azithromycin 500 mg/ Sodium 250 mls @ 250 mls/hr 05/16/25 16:00 05/16/25 18:51 Chloride IVPB 05/20/25 16:59 Infused Q24H MARV Infusion Ceftriaxone Sodium 2 gm/ 100 mls @ 200 mls/hr 05/16/25 16:00 05/16/25 17:15 Sodium Chloride IVPB Infused Q24H MARV Infusion Sodium Chloride 1,000 mls @ 50 mls/hr 05/16/25 01:15 05/16/25 21:15 Normal Saline Iv IV CONT Infused .Q20H MARV Infusion Tramadol HCl 25 mg 05/16/25 01:24 05/16/25 04:06 Tramadol Hcl (*Crx) 25 Mg Tablet PO 25 mg Q4H PRN Administration Pain Rated 4-6 Radiology Results: ITS Impressions Abdomen/Pelvis CT 05/15/25 13:33 IMPRESSION: 1. Multifocal bilateral pneumonia, with small pleural effusions. 2. Colitis. Portal hypertensive versus infectious/inflammatory. 3. Cirrhosis. Hepatosplenomegaly. Decompensated portal hypertension. 4. Distended gallbladder. If concern for cholecystitis, recommend ultrasound and/or HIDA scan. 5. No hydronephrosis. 6. Moderate volume ascites. Upper Quadrant Ultrasound 05/15/25 15:25 Impression: Cirrhotic disease of the liver with underlying liver lesion suspected. Contrast- enhanced MRI recommended Abdomen MRI 05/16/25 13:31 IMPRESSION: 1. Cirrhosis without evident hepatic nodules or masses. Sensitivity is mildly decreased in the absence of intravenous contrast. If there is continued clinical concern could consider follow-up postcontrast imaging when patient's significant acute renal insufficiency improves. 2. Secondary portal venous hypertension with splenomegaly and recanalized umbilical vein with periumbilical varices. 3. Cholelithiasis with no intra or extrahepatic biliary ductal dilation. The associated mild gallbladder wall thickening is likely related to liver disease with no frances dilation of the gallbladder or sonographic Christy's sign on ultrasound study from one day prior to suggest acute cholecystitis. 4. Pneumonia in the lingula with very small bilateral pleural effusions. 5. Cardiomegaly. 6. Diffuse soft tissue edema and moderate amount of ascites in the abdomen and pelvis. 7. Edematous wall thickening of the proximal colon most likely related to hepatic colopathy with differential including colitis which could be infectious, inflammatory or less likely ischemic in etiology. Paracentesis Ultrasound 05/16/25 14:14 IMPRESSION: 1. Successful ultrasound-guided paracentesis yielding 2350 mL of straw-colored fluid. Renal Ultrasound 05/16/25 14:17 IMPRESSION: 1. Normal kidneys without hydronephrosis. 2. Moderate amount of ascites. Chest X-Ray 05/16/25 14:36 Impression: Bilateral pneumonia Labs Labs: Laboratory Results - last 24 hr 05/16/25 05/16/25 05/16/25 08:06 08:06 08:06 WBC RBC Hgb Hct MCV MCH MCHC RDW Plt Count MPV Immature Gran % (Auto) Neut % (Auto) Lymph % (Auto) [place] % (Auto) Eos % (Auto) Baso % (Auto) Lymph # (Auto) [place] # (Auto) Eos # (Auto) Baso # (Auto) Abs Immat Gran (auto) Absolute Neuts (auto) Absolute Nucleated RBC Band Neutrophils % Nucleated RBC % Platelet Estimate % Immature Plt Fraction Anisocytosis Ovalocytes [place] Cells Schistocytes PT INR Sodium 128 L Potassium 4.3 Chloride 97 L Carbon Dioxide 25 Anion Gap 6 BUN 52 H Creatinine 3.51 H Estim Creat Clear Calc 21 Estimated GFR 18 L Glucose 108 Calcium 7.9 L Total Bilirubin 6.3 H Direct Bilirubin 1.0 H Indirect Bilirubin 2.7 H AST 54 ALT 21 Alkaline Phosphatase 218 H Total Creatine Kinase Total Protein 6.0 L Albumin 2.3 L Vitamin B12 Cancelled > 1000.0 H Folate Cancelled 2.8 Urine Eosinophils U Random Total Protein Ur Random Sodium Ur Random Urea Urine Creatinine Protein/Creat Ratio 2 Fluid Total Protein Peritoneal Source Peritoneal Color Peritoneal Appearance Peritoneal RBC Periton Nuc Cells Periton Neutrophils Periton Lymphocytes Peritoneal Monocytes Periton Macrophages Peritoneal Tot Protein 05/16/25 05/16/25 05/16/25 08:08 13:00 13:02 WBC RBC Hgb Hct MCV MCH MCHC RDW Plt Count MPV Immature Gran % (Auto) Neut % (Auto) Lymph % (Auto) [place] % (Auto) Eos % (Auto) Baso % (Auto) Lymph # (Auto) [place] # (Auto) Eos # (Auto) Baso # (Auto) Abs Immat Gran (auto) Absolute Neuts (auto) Absolute Nucleated RBC Band Neutrophils % Nucleated RBC % Platelet Estimate % Immature Plt Fraction Anisocytosis Ovalocytes [place] Cells Schistocytes PT 20.3 H INR 1.8 Sodium Potassium Chloride Carbon Dioxide Anion Gap BUN Creatinine Estim Creat Clear Calc Estimated GFR Glucose Calcium Total Bilirubin Direct Bilirubin Indirect Bilirubin AST ALT Alkaline Phosphatase Total Creatine Kinase Total Protein Albumin Vitamin B12 Folate Urine Eosinophils U Random Total Protein Ur Random Sodium Ur Random Urea Urine Creatinine Protein/Creat Ratio 2 Fluid Total Protein Cancelled Peritoneal Source Peritoneal fluid Peritoneal Color Yellow Peritoneal Appearance Hazy A Peritoneal RBC < 2000 Periton Nuc Cells 304 Periton Neutrophils 35 H Periton Lymphocytes 28 Peritoneal Monocytes 1 Periton Macrophages 36 Peritoneal Tot Protein Cancelled 05/16/25 05/16/25 05/17/25 20:24 20:24 05:25 WBC 6.4 RBC 2.27 L Hgb 8.6 L Hct 25.7 L MCV 113.2 H MCH 37.9 H MCHC 33.5 RDW 15.8 H Plt Count 95 L MPV 10.8 H Immature Gran % (Auto) 0.9 H Neut % (Auto) 60.4 Lymph % (Auto) 20.0 [place] % (Auto) 14.3 H Eos % (Auto) 3.9 Baso % (Auto) 0.5 Lymph # (Auto) 1.27 [place] # (Auto) 0.9 H Eos # (Auto) 0.3 Baso # (Auto) 0.0 Abs Immat Gran (auto) 0.06 H Absolute Neuts (auto) 3.8 Absolute Nucleated RBC 0.000 Band Neutrophils % Not Reportable Nucleated RBC % 0.0 Platelet Estimate Decreased % Immature Plt Fraction 3.9 Anisocytosis 1+ Ovalocytes 1+ [place] Cells 1+ Schistocytes None seen PT INR Sodium 132 L Potassium 4.4 Chloride 100 Carbon Dioxide 25 Anion Gap 7 BUN 52 H Creatinine 2.80 H Estim Creat Clear Calc 26 Estimated GFR 23 L Glucose 98 Calcium 8.4 Total Bilirubin 6.0 H Direct Bilirubin Indirect Bilirubin AST 51 ALT 18 Alkaline Phosphatase 138 H Total Creatine Kinase 27 L Total Protein 6.2 L Albumin 2.8 L Vitamin B12 Folate Urine Eosinophils None seen U Random Total Protein 23 Ur Random Sodium 18 Ur Random Urea 551 Urine Creatinine 147.3 151.1 Protein/Creat Ratio 2 0.16 Fluid Total Protein Peritoneal Source Peritoneal Color Peritoneal Appearance Peritoneal RBC Periton Nuc Cells Periton Neutrophils Periton Lymphocytes Peritoneal Monocytes Periton Macrophages Peritoneal Tot Protein
[2025-05-17] MEDS: IPRATROPIUM 0.5 MG/ALBUTEROL SULFATE 2.5 MG (BASE) AMPUL.NEB 3 ML INHALATION ×3 (07:33→22:06)
[2025-05-17] MEDS: SODIUM CHLORIDE 0.9% IV 1,000 ML 50 ML IV CONT (09:04)
--- NOTE | 2025-05-17 12:25 | P.PNNP_ITS ---
Progress Note: A&P Assessment and Plan (1) Acute kidney injury: Code(s): N17.9 - Acute kidney failure, unspecified Status: Acute Assessment and Plan: * slow improvement noted * as noted by admission labs (creatinine of 3.82mg/dL) * normal baseline creatinine by previous records * suspect multifactorial etiololgy: * prerenal factors * diuretic use (indapamide) [employer] * decompensated liver disease * relative anemia * infection (pneumonia) * early or variation of HRS(?) * other(?) * evaluation to date: * renal ultrasound without obstruction * urine electrolytes prerenal * urine eosinophils negative * CPK low * no significant proteinuria * s/p trial of gentle IVFs * follow repeat labs and UOP (2) Acute liver failure: Qualifiers: Hepatic coma status: without hepatic coma Qualified Code(s): K72.00 - Acute and subacute hepatic failure without coma Code(s): K72.00 - Acute and subacute hepatic failure without coma Status: Acute Assessment and Plan: * as noted by admission labs * however, LFTs appear to be slowly improving * complicated by known liver cirrhosis (see #5) (3) Pneumonia: Code(s): J18.9 - Pneumonia, unspecified organism Status: Acute Assessment and Plan: * suggested by admission imaging * however, afebrile, no significant WBC but has cough * on empiric antibiotics * follow culture data (4) Ascites: Code(s): R18.8 - Other ascites Status: Acute Assessment and Plan: * s/p large volume paracentesis (on 05/16) * started on IV Rocephin to cover for possible SBP * however, peritoneal fluid analysis not consistent with SBP * follow culture data (5) Cirrhosis: Qualifiers: Ascites presence: with ascites Hepatic cirrhosis type: alcoholic cirrhosis Qualified Code(s): K70.31 - Alcoholic cirrhosis of liver with ascites Code(s): K74.60 - Unspecified cirrhosis of liver Status: Acute Assessment and Plan: * seen at [facility] GI[facility]hepatology February 01 * FibroScan consistent with advanced cirrhosis * reports he has cut back significantly on drinking * admision CT A/P with cirrhosis with hepatosplenomegaly and decompensated portal hypertension along with moderate volume ascites * getting IV albumin (6) Abdominal pain: Code(s): R10.9 - Unspecified abdominal pain Status: Acute Assessment and Plan: * presumably secondary to abdominal distension from ascites * CT A/P with colitis, distended gallbladder, moderate volume ascites * continue supportive therapy as noted above Will continue to follow. L Subjective Date/time seen: 05/17/25 12:25 Interval history: Follow-up for acute kidney injury/acute renal failure. Renal function/creatinine has improved with current therapy/interventions; s/p ultasound guided paracentesis yesterday and tolerated this intervention without any issues or problems; abdominal distention seems improved but still complaining of mild shortness of breath. Exam 2 Narrative: General: WD/WN male in NAD Heart: normal S1 and S2; no rub Lungs: clear to auscultation Abdomen: soft, nontender, mild distension, positive bowel sounds Extremities: no cyanosis or clubbing; no edema Skin: warm and dry Objective Data Vital Signs Vital Signs: Vital Signs Temp Pulse Resp BP Pulse Ox O2 Del Method 05/17/25 12:00 98 F 82 16 117/54 L 97 05/17/25 08:00 Room Air 05/17/25 08:00 98.1 F 72 16 113/52 L 94 05/17/25 07:38 88 20 05/17/25 07:33 84 20 05/17/25 04:00 98.5 F 68 20 96/40 L 92 05/16/25 23:30 98.9 F 73 20 93/44 L 95 05/16/25 20:00 Room Air 05/16/25 20:00 98.7 F 76 20 113/56 L 95 Intake/Output Intake/Output: Intake & Output 05/14/25 05/15/25 05/16/25 05/17/25 23:59 23:59 23:59 23:59 Intake Total 300 1990 1320 Output Total 2350 600 Balance 300 -360 720 Meds/Results Medications: Active Medications Generic Name Dose Route Start Last Admin Trade Name Freq PRN Reason Stop Dose Admin Albuterol/Ipratropium 3 ml 05/16/25 02:00 05/17/25 13:59 Ipratropium 0.5 Mg/Albuterol Sulfate 2.5 Mg (Base) Ampul.Neb 3 Ml INHALATION 3 ml Q6HRT MARV Administration Diltiazem HCl 240 mg 05/16/25 09:00 05/17/25 13:06 Diltiazem Hcl Cd 240 Mg Cap.24hr PO Not Given DAILY MARV Azithromycin 500 mg/ Sodium 250 mls @ 250 mls/hr 05/16/25 16:00 05/17/25 18:08 Chloride IVPB 05/20/25 16:59 250 mls/hr Q24H MARV Administration Ceftriaxone Sodium 2 gm/ 100 mls @ 200 mls/hr 05/16/25 16:00 05/17/25 17:37 Sodium Chloride IVPB 200 mls/hr Q24H MARV Administration Tramadol HCl 25 mg 05/16/25 01:24 05/16/25 04:06 Tramadol Hcl (*Crx) 25 Mg Tablet PO 25 mg Q4H PRN Administration Pain Rated 4-6 Radiology Results: ITS Impressions Abdomen/Pelvis CT 05/15/25 13:33 IMPRESSION: 1. Multifocal bilateral pneumonia, with small pleural effusions. 2. Colitis. Portal hypertensive versus infectious/inflammatory. 3. Cirrhosis. Hepatosplenomegaly. Decompensated portal hypertension. 4. Distended gallbladder. If concern for cholecystitis, recommend ultrasound and/or HIDA scan. 5. No hydronephrosis. 6. Moderate volume ascites. Upper Quadrant Ultrasound 05/15/25 15:25 Impression: Cirrhotic disease of the liver with underlying liver lesion suspected. Contrast- enhanced MRI recommended Abdomen MRI 05/16/25 13:31 IMPRESSION: 1. Cirrhosis without evident hepatic nodules or masses. Sensitivity is mildly decreased in the absence of intravenous contrast. If there is continued clinical concern could consider follow-up postcontrast imaging when patient's significant acute renal insufficiency improves. 2. Secondary portal venous hypertension with splenomegaly and recanalized umbilical vein with periumbilical varices. 3. Cholelithiasis with no intra or extrahepatic biliary ductal dilation. The associated mild gallbladder wall thickening is likely related to liver disease with no frances dilation of the gallbladder or sonographic Christy's sign on ultrasound study from one day prior to suggest acute cholecystitis. 4. Pneumonia in the lingula with very small bilateral pleural effusions. 5. Cardiomegaly. 6. Diffuse soft tissue edema and moderate amount of ascites in the abdomen and pelvis. 7. Edematous wall thickening of the proximal colon most likely related to hepatic colopathy with differential including colitis which could be infectious, inflammatory or less likely ischemic in etiology. Paracentesis Ultrasound 05/16/25 14:14 IMPRESSION: 1. Successful ultrasound-guided paracentesis yielding 2350 mL of straw-colored fluid. Renal Ultrasound 05/16/25 14:17 IMPRESSION: 1. Normal kidneys without hydronephrosis. 2. Moderate amount of ascites. Chest X-Ray 05/16/25 14:36 Impression: Bilateral pneumonia Labs Labs: Laboratory Tests 05/17/25 05:25 05/17/25 05:25 Calcium 8.4 Total Bilirubin 6.0 H AST 51 ALT 18 Alkaline Phosphatase 138 H Total Creatine Kinase 27 L Total Protein 6.2 L Albumin 2.8 L Microbiology 05/16/25 13:00 Abdominal Fluid Gram Stain - Final 05/15/25 15:27 Blood Blood Culture - Preliminary 05/15/25 15:27 Blood Blood Culture - Preliminary 05/16/25 13:00 Peritoneal Fluid Gram Stain - Final
--- NOTE | 2025-05-17 14:01 | WPDGIPROGNO ---
Progress Note: A&P Assessment and Plan (1) Ascites: Code(s): R18.8 - Other ascites Status: Acute Assessment and Plan: Patient with alcohol-related cirrhosis and ascites, being treated for pneumonia. His white count has improved, now normal. He received 1 gram/kilogram of albumin infusion yesterday (80 g) and today his creatinine has improved to 2.8. Will continue to monitor creatinine, and will get an additional dose today. Most likely the cause of acute renal failure is driven by volume depletion. Will order a dietitian consult to optimize low sodium diet since the patient currently has an absolute contraindication for diuretics given his ARIANA status. (2) Cirrhosis: Qualifiers: Hepatic cirrhosis type: alcoholic cirrhosis Ascites presence: with ascites Qualified Code(s): K70.31 - Alcoholic cirrhosis of liver with ascites Code(s): K74.60 - Unspecified cirrhosis of liver Status: Acute Subjective Date/time seen: 05/17/25 14:01 Interval history: Patient denies shortness of breath, although he feels somewhat fatigued when walking around his bed and to the bathroom. Exam Narrative: Abdomen: Not tense, but shifting dullness still present. No lower extremity edema. Alert oriented x3. Objective Data Vital Signs Vital Signs: Vital Signs - 24 hr 05/16/25 15:41 05/16/25 20:00 05/16/25 20:00 Temperature 97.7 F 98.7 F Pulse Rate 74 76 Respiratory Rate 18 20 Blood Pressure 126/54 L 113/56 L Pulse Oximetry 98 95 Oxygen Delivery Room Air 05/16/25 23:30 05/17/25 04:00 05/17/25 07:33 Temperature 98.9 F 98.5 F Pulse Rate 73 68 84 Respiratory Rate 20 20 20 Blood Pressure 93/44 L 96/40 L Pulse Oximetry 95 92 Oxygen Delivery 05/17/25 07:38 05/17/25 08:00 Temperature 98.1 F Pulse Rate 88 72 Respiratory Rate 20 16 Blood Pressure 113/52 L Pulse Oximetry 94 Oxygen Delivery Intake/Output Intake/Output: Intake & Output 05/14/25 05/15/25 05/16/25 05/17/25 23:59 23:59 23:59 23:59 Intake Total 300 1990 840 Output Total 2350 600 Balance 300 -360 240 Meds/Results Medications: Active Medications Generic Name Dose Route Start Last Admin Trade Name Freq PRN Reason Stop Dose Admin Albuterol/Ipratropium 3 ml 05/16/25 02:00 05/17/25 13:59 Ipratropium 0.5 Mg/Albuterol Sulfate 2.5 Mg (Base) Ampul.Neb 3 Ml INHALATION 3 ml Q6HRT MARV Administration Diltiazem HCl 240 mg 05/16/25 09:00 05/17/25 13:06 Diltiazem Hcl Cd 240 Mg Cap.24hr PO Not Given DAILY MARV Azithromycin 500 mg/ Sodium 250 mls @ 250 mls/hr 05/16/25 16:00 05/16/25 18:51 Chloride IVPB 05/20/25 16:59 Infused Q24H MARV Infusion Ceftriaxone Sodium 2 gm/ 100 mls @ 200 mls/hr 05/16/25 16:00 05/16/25 17:15 Sodium Chloride IVPB Infused Q24H MARV Infusion Albumin Human 100 mls @ 60 mls/hr 05/17/25 15:00 Albutein IVPB 05/17/25 16:39 ONCE ONE Tramadol HCl 25 mg 05/16/25 01:24 05/16/25 04:06 Tramadol Hcl (*Crx) 25 Mg Tablet PO 25 mg Q4H PRN Administration Pain Rated 4-6 Radiology Results: ITS Impressions Abdomen/Pelvis CT 05/15/25 13:33 IMPRESSION: 1. Multifocal bilateral pneumonia, with small pleural effusions. 2. Colitis. Portal hypertensive versus infectious/inflammatory. 3. Cirrhosis. Hepatosplenomegaly. Decompensated portal hypertension. 4. Distended gallbladder. If concern for cholecystitis, recommend ultrasound and/or HIDA scan. 5. No hydronephrosis. 6. Moderate volume ascites. Upper Quadrant Ultrasound 05/15/25 15:25 Impression: Cirrhotic disease of the liver with underlying liver lesion suspected. Contrast-enhanced MRI recommended Abdomen MRI 05/16/25 13:31 IMPRESSION: 1. Cirrhosis without evident hepatic nodules or masses. Sensitivity is mildly decreased in the absence of intravenous contrast. If there is continued clinical concern could consider follow-up postcontrast imaging when patient's significant acute renal insufficiency improves. 2. Secondary portal venous hypertension with splenomegaly and recanalized umbilical vein with periumbilical varices. 3. Cholelithiasis with no intra or extrahepatic biliary ductal dilation. The associated mild gallbladder wall thickening is likely related to liver disease with no frances dilation of the gallbladder or sonographic Christy's sign on ultrasound study from one day prior to suggest acute cholecystitis. 4. Pneumonia in the lingula with very small bilateral pleural effusions. 5. Cardiomegaly. 6. Diffuse soft tissue edema and moderate amount of ascites in the abdomen and pelvis. 7. Edematous wall thickening of the proximal colon most likely related to hepatic colopathy with differential including colitis which could be infectious, inflammatory or less likely ischemic in etiology. Paracentesis Ultrasound 05/16/25 14:14 IMPRESSION: 1. Successful ultrasound-guided paracentesis yielding 2350 mL of straw-colored fluid. Renal Ultrasound 05/16/25 14:17 IMPRESSION: 1. Normal kidneys without hydronephrosis. 2. Moderate amount of ascites. Chest X-Ray 05/16/25 14:36 Impression: Bilateral pneumonia Labs Labs: Laboratory Results - last 24 hr 05/16/25 05/16/25 05/16/25 08:06 13:00 20:24 WBC RBC Hgb Hct MCV MCH MCHC RDW Plt Count MPV Immature Gran % (Auto) Neut % (Auto) Lymph % (Auto) [place] % (Auto) Eos % (Auto) Baso % (Auto) Lymph # (Auto) [place] # (Auto) Eos # (Auto) Baso # (Auto) Abs Immat Gran (auto) Absolute Neuts (auto) Absolute Nucleated RBC Band Neutrophils % Nucleated RBC % Platelet Estimate % Immature Plt Fraction Anisocytosis Ovalocytes [place]stein Cells Schistocytes Sodium Potassium Chloride Carbon Dioxide Anion Gap BUN Creatinine Estim Creat Clear Calc Estimated GFR Glucose Calcium Total Bilirubin AST ALT Alkaline Phosphatase Total Creatine Kinase Total Protein Albumin Tumor Marker AFP <1.8 Vitamin B12 > 1000.0 H Folate 2.8 Urine Eosinophils None seen U Random Total Protein 23 Ur Random Sodium 18 Ur Random Urea 551 Urine Creatinine 147.3 Protein/Creat Ratio 2 Peritoneal Source Peritoneal fluid Peritoneal Color Yellow Peritoneal Appearance Hazy A Peritoneal RBC < 2000 Periton Nuc Cells 304 Periton Neutrophils 35 H Periton Lymphocytes 28 Peritoneal Monocytes 1 Periton Macrophages 36 05/16/25 05/17/25 20:24 05:25 WBC 6.4 RBC 2.27 L Hgb 8.6 L Hct 25.7 L MCV 113.2 H MCH 37.9 H MCHC 33.5 RDW 15.8 H Plt Count 95 L MPV 10.8 H Immature Gran % (Auto) 0.9 H Neut % (Auto) 60.4 Lymph % (Auto) 20.0 [place] % (Auto) 14.3 H Eos % (Auto) 3.9 Baso % (Auto) 0.5 Lymph # (Auto) 1.27 [place] # (Auto) 0.9 H Eos # (Auto) 0.3 Baso # (Auto) 0.0 Abs Immat Gran (auto) 0.06 H Absolute Neuts (auto) 3.8 Absolute Nucleated RBC 0.000 Band Neutrophils % Not Reportable Nucleated RBC % 0.0 Platelet Estimate Decreased % Immature Plt Fraction 3.9 Anisocytosis 1+ Ovalocytes 1+ Cecelia Cells 1+ Schistocytes None seen Sodium 132 L Potassium 4.4 Chloride 100 Carbon Dioxide 25 Anion Gap 7 BUN 52 H Creatinine 2.80 H Estim Creat Clear Calc 26 Estimated GFR 23 L Glucose 98 Calcium 8.4 Total Bilirubin 6.0 H AST 51 ALT 18 Alkaline Phosphatase 138 H Total Creatine Kinase 27 L Total Protein 6.2 L Albumin 2.8 L Tumor Marker AFP Vitamin B12 Folate Urine Eosinophils U Random Total Protein Ur Random Sodium Ur Random Urea Urine Creatinine 151.1 Protein/Creat Ratio 2 0.16 Peritoneal Source Peritoneal Color Peritoneal Appearance Peritoneal RBC Periton Nuc Cells Periton Neutrophils Periton Lymphocytes Peritoneal Monocytes Periton Macrophages
[2025-05-17 15:08] LABS: Albumin, Body Fluid 0.5 g/dL (Not Estab.); Glucose, Body Fluid 114 mg/dL (.); LD, Body Fluid 32 IU/L (.)
[2025-05-17] MEDS: ALBUMIN HUMAN 25% 25 GM/100 ML 100 ML IVPB (16:00)
[2025-05-17] MEDS: cefTRIAXone 2 GM in SODIUM CHLORIDE 0.9% IV 100 ML 200 ML IVPB (17:37)
[2025-05-17] MEDS: AZITHROMYCIN IV 500 MG in SODIUM CHLORIDE 0.9% IV 250 ML IVPB (18:08)
[2025-05-18] VITALS (15 sets, daily range): BP systolic 122–144; BP diastolic 56–76; PULSE 76–105; RESP 16–18; TEMP 36.7–37.1; O2SAT 93–96
[2025-05-18] MEDS: IPRATROPIUM 0.5 MG/ALBUTEROL SULFATE 2.5 MG (BASE) AMPUL.NEB 3 ML INHALATION ×4 (03:05→20:06)
[2025-05-18 05:10] LABS: Hematocrit 26.2 % (42.0-52.0); Hemoglobin 8.6 g/dL (14.0-18.0); Immature Granulocyte Percent A 1.4 % (0-0.5); Immature Platelet Fraction Pct 3.6 % (0.9-11.2); Lymphocytes Absolute Auto 1.17 K/mm3 (0.9-3.2); Mean Corpuscular HGB Conc 32.8 g/dl (32-36); Mean Corpuscular Hemoglobin 37.6 pg (26-34); Mean Corpuscular Volume 114.4 fl (80-100); Nucleated Red Blood Cells Absolute Auto 0.000 K/mm3 (0.0-0.012); Nucleated Red Blood Cells Perc 0.0 % (0.0-0.2); Platelet Count Result 97 k/mm3 (150-375); Red Blood Count 2.29 M/mm3 (4.6-6.20); White Blood Count 5.2 K/mm3 (4.5-10.0)
[2025-05-18 05:27] LABS: Alanine Aminotransferase 19 U/L (6-50); Albumin Level 2.8 g/dL (3.5-5.1); Alkaline Phosphatase 137 U/L (38-126); Anion Gap 9 mmol/L (4-12); Aspartate Amino Transferase 53 U/L (17-59); Bilirubin,Total 5.7 mg/dL (0.2-1.3); Blood Urea Nitrogen 47 mg/dL (9-20); Calcium 8.6 mg/dL (8.4-10.2); Carbon Dioxide 24 mmol/L (22-30); Chloride 102 mmol/L (98-107); Estimated CRCL calculation 33 ml/min; Estimated Glomerular Filt Rate 31; Glucose 102 mg/dL (65-110); Potassium 4.1 mmol/L (3.4-5.0); Sodium 135 mmol/L (137-145); Total Protein 6.2 g/dL (6.3-8.2)
[2025-05-18 05:53] LABS: Anisocytosis 1+; Hypochromasia 1+; Macrocytosis 1+ (NORMAL)
[2025-05-18 05:54] LABS: Burr Cells Occasional; Ovalocytes 1+; Schistocytes None Seen
--- NOTE | 2025-05-18 08:19 | P.PNIM_ITS ---
Progress Note: A&P Assessment and Plan (1) Acute liver failure: Qualifiers: Hepatic coma status: without hepatic coma Qualified Code(s): K72.00 - Acute and subacute hepatic failure without coma Code(s): K72.00 - Acute and subacute hepatic failure without coma Status: Ruled-out Assessment and Plan: - initial t bili 10.1, AST 62, ALT 26, alk phos 177, INR 1.9 - continues to improve - MELD 34 - seen at [facility] GI/hepatology February 01 at which time he had a FibroScan consistent with advanced cirrhosis. - reports he has cut back significantly on drinking. Encouraged complete cessation. - CT A/P with cirrhosis with hepatosplenomegaly and decompensated portal hypertension. Moderate volume ascites. - started on IV Rocephin to cover for possible SBP - s/p paracentesis 05/17 with 2350 cc fluid removed. Fluid analysis not consistent with SBP. GI planning for additional paracentesis tomorrow 05/19. Diuretics contraindicated due to ARI[place]. - GI following. No indication for steroids or EGD at this time. Ordered albumin 80mg x2 - daily CMP (2) Acute renal failure: Qualifiers: Acute renal failure type: unspecified Qualified Code(s): N17.9 - Acute kidney failure, unspecified Code(s): N17.9 - Acute kidney failure, unspecified Status: Acute Assessment and Plan: - admit Cr 3.82. Cr was 0.7 09/2020. - likely prerenal in setting of cirrhosis, dehydration as patient reports poor PO intake x1 week. Hepatorenal syndrome is also a concern. - renal US with no hydronephrosis - home Lozol on hold - s/p IV fluids. PO intake improving. - hold nephrotoxic medication. - Cr improved with IV fluids and albumin. - monitor urine output - nephrology following (3) Pneumonia: Code(s): J18.9 - Pneumonia, unspecified organism Status: Acute Assessment and Plan: - CT A/P showed multifocal opacities. Patient complains of a cough. -Afebrile. Initial WBC 11.8, improved. - continue Rocephin/azithromycin - DuoNebs -blood and sputum cultures are pending. (4) Ascites: Code(s): R18.8 - Other ascites Status: Acute Assessment and Plan: - management as above (5) Cirrhosis: Qualifiers: Ascites presence: with ascites Hepatic cirrhosis type: alcoholic cirrhosis Qualified Code(s): K70.31 - Alcoholic cirrhosis of liver with ascites Code(s): K74.60 - Unspecified cirrhosis of liver Status: Acute Assessment and Plan: - management as above (6) Abdominal pain: Code(s): R10.9 - Unspecified abdominal pain Status: Acute Assessment and Plan: - complaining of diffuse abdominal discomfort related to distention - CT A/P with colitis, distended gallbladder, moderate volume ascites - low suspicion for cholecystitis given no specific right upper quadrant abdominal pain - suspect pain related to distention from ascites. (7) Melena: Code(s): K92.1 - Melena Status: Ruled-out Assessment and Plan: - patient reported dark/tarry stools, initially loose stool, now more formed - Hgb 11.3 on admission, trended down to 8.6 this AM. Could be hemodilutional due to IV fluids vs. bleeding - CT A/P with colitis - portal hypertensive versus infectious/inflammatory - monitor - GI following and completed guaiac stool which was negative. Stopped IV protonix. (8) Personal history of malignant melanoma of skin: Code(s): Z85.820 - Personal history of malignant melanoma of skin Status: Acute Assessment and Plan: -prior history of melanoma of the RLE s/p excision. Receives biannual PET scans (9) Thrombocytopenia: Code(s): D69.6 - Thrombocytopenia, unspecified Status: Acute Assessment and Plan: - Plts 97, likely related to cirrhosis - monitor CBC (10) Anemia: Code(s): D64.9 - Anemia, unspecified Status: Acute Assessment and Plan: -Hgb 11.3-->8.6, now stable. - likely hemodilutional and related to cirrhosis. Guaiac stool negative. Continue to monitor CBC. Plan DVT prophylaxis: SCDs Code status: full code Dispo: likely home in 1-2 days if continues to improve Subjective Date/time seen: 05/18/25 08:19 Interval history: Patient seen and examined at bedside. Overall feeling better. Worried about recurrent abdominal distention. Review of Systems Review of Systems: All systems reviewed & are unremarkable except as noted in HPI and below Exam Narrative: General: NAD Eyes: EOMI ENT: neck supple Cardiovascular: Regular rate and rhythm Respiratory: Clear to auscultation, respirations even and unlabored on RA Gastrointestinal: soft, nontender Genitourinary: no suprapubic tenderness Musculoskeletal: No edema Skin: warm, dry Neuro: Alert. Psych: Mood appropriate Objective Data Vital Signs Vital Signs: Vital Signs - 24 hr 05/17/25 12:00 05/17/25 14:00 05/17/25 14:08 Temperature 98 F Pulse Rate 82 78 83 Respiratory Rate 16 20 20 Blood Pressure 117/54 L Pulse Oximetry 97 Oxygen Delivery 05/17/25 16:00 05/17/25 20:00 05/17/25 20:00 Temperature 97.7 F 98.3 F Pulse Rate 95 77 Respiratory Rate 16 16 Blood Pressure 121/71 129/56 L Pulse Oximetry 98 95 95 Oxygen Delivery Room Air 05/17/25 22:06 05/17/25 22:11 05/17/25 23:43 Temperature 98.3 F Pulse Rate 81 82 81 Respiratory Rate 18 18 18 Blood Pressure 139/59 L Pulse Oximetry 94 Oxygen Delivery 05/18/25 03:05 05/18/25 03:11 05/18/25 03:57 Temperature 98.5 F Pulse Rate 76 78 85 Respiratory Rate 18 18 17 Blood Pressure 122/56 L Pulse Oximetry 94 Oxygen Delivery 05/18/25 07:41 05/18/25 07:48 05/18/25 08:06 Temperature Pulse Rate 92 90 Respiratory Rate 16 16 Blood Pressure Pulse Oximetry 93 Oxygen Delivery Room Air Intake/Output Intake/Output: Intake & Output 05/15/25 05/16/25 05/17/25 05/18/25 23:59 23:59 23:59 23:59 Intake Total 300 1990 1320 450 Output Total 2350 600 400 Balance 300 -360 720 50 Meds/Results Medications: Active Medications Generic Name Dose Route Start Last Admin Trade Name Freq PRN Reason Stop Dose Admin Albuterol/Ipratropium 3 ml 05/16/25 02:00 05/18/25 08:04 Ipratropium 0.5 Mg/Albuterol Sulfate 2.5 Mg (Base) Ampul.Neb 3 Ml INHALATION 3 ml Q6HRT MARV Administration Diltiazem HCl 240 mg 05/16/25 09:00 05/17/25 13:06 Diltiazem Hcl Cd 240 Mg Cap.24hr PO Not Given DAILY MARV Azithromycin 500 mg/ Sodium 250 mls @ 250 mls/hr 05/16/25 16:00 05/17/25 18:08 Chloride IVPB 05/20/25 16:59 250 mls/hr Q24H MARV Administration Ceftriaxone Sodium 2 gm/ 100 mls @ 200 mls/hr 05/16/25 16:00 05/17/25 17:37 Sodium Chloride IVPB 200 mls/hr Q24H MARV Administration Tramadol HCl 25 mg 05/16/25 01:24 05/16/25 04:06 Tramadol Hcl (*Crx) 25 Mg Tablet PO 25 mg Q4H PRN Administration Pain Rated 4-6 Radiology Results: ITS Impressions Abdomen/Pelvis CT 05/15/25 13:33 IMPRESSION: 1. Multifocal bilateral pneumonia, with small pleural effusions. 2. Colitis. Portal hypertensive versus infectious/inflammatory. 3. Cirrhosis. Hepatosplenomegaly. Decompensated portal hypertension. 4. Distended gallbladder. If concern for cholecystitis, recommend ultrasound and/or HIDA scan. 5. No hydronephrosis. 6. Moderate volume ascites. Upper Quadrant Ultrasound 05/15/25 15:25 Impression: Cirrhotic disease of the liver with underlying liver lesion suspected. Contrast- enhanced MRI recommended Abdomen MRI 05/16/25 13:31 IMPRESSION: 1. Cirrhosis without evident hepatic nodules or masses. Sensitivity is mildly decreased in the absence of intravenous contrast. If there is continued clinical concern could consider follow-up postcontrast imaging when patient's significant acute renal insufficiency improves. 2. Secondary portal venous hypertension with splenomegaly and recanalized umbilical vein with periumbilical varices. 3. Cholelithiasis with no intra or extrahepatic biliary ductal dilation. The associated mild gallbladder wall thickening is likely related to liver disease with no frances dilation of the gallbladder or sonographic Christy's sign on ultrasound study from one day prior to suggest acute cholecystitis. 4. Pneumonia in the lingula with very small bilateral pleural effusions. 5. Cardiomegaly. 6. Diffuse soft tissue edema and moderate amount of ascites in the abdomen and pelvis. 7. Edematous wall thickening of the proximal colon most likely related to hepatic colopathy with differential including colitis which could be infectious, inflammatory or less likely ischemic in etiology. Paracentesis Ultrasound 05/16/25 14:14 IMPRESSION: 1. Successful ultrasound-guided paracentesis yielding 2350 mL of straw-colored fluid. Renal Ultrasound 05/16/25 14:17 IMPRESSION: 1. Normal kidneys without hydronephrosis. 2. Moderate amount of ascites. Chest X-Ray 05/16/25 14:36 Impression: Bilateral pneumonia Labs Labs: Laboratory Results - last 24 hr 05/16/25 05/16/25 05/16/25 08:06 13:01 20:23 WBC RBC Hgb Hct MCV MCH MCHC RDW Plt Count MPV Immature Gran % (Auto) Neut % (Auto) Lymph % (Auto) [place] % (Auto) Eos % (Auto) Baso % (Auto) Lymph # (Auto) [place] # (Auto) Eos # (Auto) Baso # (Auto) Abs Immat Gran (auto) Absolute Neuts (auto) Absolute Nucleated RBC Band Neutrophils % Nucleated RBC % Platelet Estimate % Immature Plt Fraction Hypochromasia Anisocytosis Macrocytosis Ovalocytes [place] Cells Schistocytes Sodium Potassium Chloride Carbon Dioxide Anion Gap BUN Creatinine Estim Creat Clear Calc Estimated GFR Glucose Calcium Total Bilirubin AST ALT Alkaline Phosphatase Total Protein Albumin Tumor Marker AFP <1.8 Fluid Glucose 114 Fluid Total Protein 0.9 Fluid Albumin 0.5 Fluid LDH 32 Fluid Amylase 25 Legionella Source Cancelled Legionella Culture Cancelled Legionella Cult Status Cancelled 05/18/25 04:45 WBC 5.2 RBC 2.29 L Hgb 8.6 L Hct 26.2 L MCV 114.4 H MCH 37.6 H MCHC 32.8 RDW 15.7 H Plt Count 97 L MPV 11.1 H Immature Gran % (Auto) 1.4 H Neut % (Auto) 55.9 Lymph % (Auto) 22.6 [place] % (Auto) 15.6 H Eos % (Auto) 3.9 Baso % (Auto) 0.6 Lymph # (Auto) 1.17 [place] # (Auto) 0.8 H Eos # (Auto) 0.2 Baso # (Auto) 0.0 Abs Immat Gran (auto) 0.07 H Absolute Neuts (auto) 2.9 Absolute Nucleated RBC 0.000 Band Neutrophils % Not Reportable Nucleated RBC % 0.0 Platelet Estimate Decreased % Immature Plt Fraction 3.6 Hypochromasia 1+ Anisocytosis 1+ Macrocytosis 1+ Ovalocytes 1+ [place] Cells Occasional Schistocytes None seen Sodium 135 L Potassium 4.1 Chloride 102 Carbon Dioxide 24 Anion Gap 9 BUN 47 H Creatinine 2.14 H Estim Creat Clear Calc 33 Estimated GFR 31 L Glucose 102 Calcium 8.6 Total Bilirubin 5.7 H AST 53 ALT 19 Alkaline Phosphatase 137 H Total Protein 6.2 L Albumin 2.8 L Tumor Marker AFP Fluid Glucose Fluid Total Protein Fluid Albumin Fluid LDH Fluid Amylase Legionella Source Legionella Culture Legionella Cult Status
--- NOTE | 2025-05-18 11:10 | P.PNNP_ITS ---
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 * decompensated liver disease * relative anemia * infection (pneumonia) * early or variation of HRS(?) * other(?) * evaluation to date: * renal ultrasound without obstruction * urine electrolytes prerenal * urine eosinophils negative * CPK low * no significant proteinuria * s/p trial of gentle IVFs * follow repeat labs and UOP (2) Acute liver failure: Qualifiers: Hepatic coma status: without hepatic coma Qualified Code(s): K72.00 - Acute and subacute hepatic failure without coma Code(s): K72.00 - Acute and subacute hepatic failure without coma Status: Acute Assessment and Plan: * as noted by admission labs * however, LFTs appear to be slowly improving * complicated by known liver cirrhosis (see #5) (3) Pneumonia: Code(s): J18.9 - Pneumonia, unspecified organism Status: Acute Assessment and Plan: * suggested by admission imaging * however, afebrile, no significant WBC but has cough * on empiric antibiotics * follow culture data (4) Ascites: Code(s): R18.8 - Other ascites Status: Acute Assessment and Plan: * s/p large volume paracentesis (on 05/16) * started on IV Rocephin to cover for possible SBP * however, peritoneal fluid analysis not consistent with SBP * follow culture data (5) Cirrhosis: Qualifiers: Hepatic cirrhosis type: alcoholic cirrhosis Ascites presence: with ascites Qualified Code(s): K70.31 - Alcoholic cirrhosis of liver with ascites Code(s): K74.60 - Unspecified cirrhosis of liver Status: Acute Assessment and Plan: * seen at [facility] GI/hepatology February 01 * FibroScan consistent with advanced cirrhosis * reports he has cut back significantly on drinking * admision CT A/P with cirrhosis with hepatosplenomegaly and decompensated portal hypertension along with moderate volume ascites * getting IV albumin (6) Abdominal pain: Code(s): R10.9 - Unspecified abdominal pain Status: Acute Assessment and Plan: * presumably secondary to abdominal distension from ascites * CT A/P with colitis, distended gallbladder, moderate volume ascites * continue supportive therapy as noted above Will continue to follow. L Subjective Date/time seen: 05/18/25 11:10 Interval history: Follow-up for acute kidney injury/acute renal failure. Renal function/creatinine continues to slowly improve with current therapy/interventions (s/p IVFs and IV albumin infusions); appetite fluctuates depending on abdominal distension which appears to be returning despute paracentesis on Monday (05/16); no other issues/events overnight or earlier this morning. Exam 2 Narrative: General: WD/WN male in NAD Heart: normal S1 and S2; no rub Lungs: clear to auscultation Abdomen: soft, nontender, moderate distension, positive bowel sounds Extremities: no cyanosis or clubbing; no edema Skin: warm and intact Objective Data Vital Signs Vital Signs: Vital Signs Temp Pulse Resp BP Pulse Ox O2 Del Method 05/18/25 10:08 100 16 05/18/25 08:06 93 Room Air 05/18/25 08:00 98.5 F 100 16 141/69 H 96 05/18/25 07:48 90 16 05/18/25 07:41 92 16 05/18/25 03:57 98.5 F 85 17 122/56 L 94 05/18/25 03:11 78 18 05/18/25 03:05 76 18 05/17/25 23:43 98.3 F 81 18 139/59 L 94 05/17/25 22:11 82 18 05/17/25 22:06 81 18 05/17/25 20:00 95 Room Air 05/17/25 20:00 98.3 F 77 16 129/56 L 95 05/17/25 16:00 97.7 F 95 16 121/71 98 Intake/Output Intake/Output: Intake & Output 05/15/25 05/16/25 05/17/25 05/18/25 23:59 23:59 23:59 23:59 Intake Total 300 1990 1770 930 Output Total 2350 600 400 Balance 300 -360 1170 530 Meds/Results Medications: Active Medications Generic Name Dose Route Start Last Admin Trade Name Freq PRN Reason Stop Dose Admin Albuterol/Ipratropium 3 ml 05/16/25 02:00 05/18/25 13:08 Ipratropium 0.5 Mg/Albuterol Sulfate 2.5 Mg (Base) Ampul.Neb 3 Ml INHALATION 3 ml Q6HRT MARV Administration Diltiazem HCl 240 mg 05/16/25 09:00 05/18/25 09:20 Diltiazem Hcl Cd 240 Mg Cap.24hr PO Not Given DAILY [facility] Albumin Human 320 mls @ 60 mls/hr 05/18/25 11:30 05/18/25 12:18 [place]in IVPB 05/18/25 16:49 60 mls/hr ONCE ONE Administration Azithromycin 500 mg/ Sodium 250 mls @ 250 mls/hr 05/18/25 18:00 Chloride IVPB 05/20/25 18:59 Q24H MARV Ceftriaxone Sodium 2 gm/ 100 mls @ 200 mls/hr 05/18/25 17:00 Sodium Chloride IVPB Q24H MARV Tramadol HCl 25 mg 05/16/25 01:24 05/16/25 04:06 Tramadol Hcl (*Crx) 25 Mg Tablet PO 25 mg Q4H PRN Administration Pain Rated 4-6 Radiology Results: ITS Impressions Abdomen/Pelvis CT 05/15/25 13:33 IMPRESSION: 1. Multifocal bilateral pneumonia, with small pleural effusions. 2. Colitis. Portal hypertensive versus infectious/inflammatory. 3. Cirrhosis. Hepatosplenomegaly. Decompensated portal hypertension. 4. Distended gallbladder. If concern for cholecystitis, recommend ultrasound and/or HIDA scan. 5. No hydronephrosis. 6. Moderate volume ascites. Upper Quadrant Ultrasound 05/15/25 15:25 Impression: Cirrhotic disease of the liver with underlying liver lesion suspected. Contrast- enhanced MRI recommended Abdomen MRI 05/16/25 13:31 IMPRESSION: 1. Cirrhosis without evident hepatic nodules or masses. Sensitivity is mildly decreased in the absence of intravenous contrast. If there is continued clinical concern could consider follow-up postcontrast imaging when patient's significant acute renal insufficiency improves. 2. Secondary portal venous hypertension with splenomegaly and recanalized umbilical vein with periumbilical varices. 3. Cholelithiasis with no intra or extrahepatic biliary ductal dilation. The associated mild gallbladder wall thickening is likely related to liver disease with no frances dilation of the gallbladder or sonographic Christy's sign on ultrasound study from one day prior to suggest acute cholecystitis. 4. Pneumonia in the lingula with very small bilateral pleural effusions. 5. Cardiomegaly. 6. Diffuse soft tissue edema and moderate amount of ascites in the abdomen and pelvis. 7. Edematous wall thickening of the proximal colon most likely related to hepatic colopathy with differential including colitis which could be infectious, inflammatory or less likely ischemic in etiology. Paracentesis Ultrasound 05/16/25 14:14 IMPRESSION: 1. Successful ultrasound-guided paracentesis yielding 2350 mL of straw-colored fluid. Renal Ultrasound 05/16/25 14:17 IMPRESSION: 1. Normal kidneys without hydronephrosis. 2. Moderate amount of ascites. Chest X-Ray 05/16/25 14:36 Impression: Bilateral pneumonia Labs Labs: Laboratory Tests 05/18/25 04:45 05/18/25 04:45 Calcium 8.6 Total Bilirubin 5.7 H AST 53 ALT 19 Alkaline Phosphatase 137 H Total Protein 6.2 L Albumin 2.8 L Microbiology 05/16/25 13:00 Abdominal Fluid Gram Stain - Final 05/15/25 15:27 Blood Blood Culture - Preliminary 05/15/25 15:27 Blood Blood Culture - Preliminary
--- NOTE | 2025-05-18 11:42 | WPDGIPROGNO ---
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 The ARIANA is responding well to treatment with albumin 1 g/kg/day, with creatinine decreasing from 2.8(yesterday) to 2.14 (today). This response is highly suggestive of pre-renal insufficiency, and we will continue daily albumin administration while closely monitoring creatinine. Given the ARIANA, diuretics are currently contraindicated for ascites management, making repeated therapeutic paracentesis the primary modality to manage ascites. A TIPS is a potential alternative but is relatively contraindicated due to the patient's ongoing active alcohol use. His MELD 3.0 score today is 29, which places him at high risk for hepatic encephalopathy and further decompensation (MELD > 20). We discussed these alternatives and his prognosis if he continues drinking. Once his renal function stabilizes, we plan to refer him to [facility] for transplant evaluation and possible TIPS consideration, if he remains abstinent from alcohol alcohol. (2) Cirrhosis: Qualifiers: Hepatic cirrhosis type: alcoholic cirrhosis Ascites presence: with ascites Qualified Code(s): K70.31 - Alcoholic cirrhosis of liver with ascites Code(s): K74.60 - Unspecified cirrhosis of liver Status: Acute Subjective Date/time seen: 05/18/25 11:42 Interval history: The patient feels well except for poor appetite secondary to increased abdominal volume. Exam Narrative: Abdomen: Shifting dullness is evident, but no tense ascites. Rest of the exam unchanged. Objective Data Vital Signs Vital Signs: Vital Signs - 24 hr 05/17/25 12:00 05/17/25 14:00 05/17/25 14:08 Temperature 98 F Pulse Rate 82 78 83 Respiratory Rate 16 20 20 Blood Pressure 117/54 L Pulse Oximetry 97 Oxygen Delivery 05/17/25 16:00 05/17/25 20:00 05/17/25 20:00 Temperature 97.7 F 98.3 F Pulse Rate 95 77 Respiratory Rate 16 16 Blood Pressure 121/71 129/56 L Pulse Oximetry 98 95 95 Oxygen Delivery Room Air 05/17/25 22:06 05/17/25 22:11 05/17/25 23:43 Temperature 98.3 F Pulse Rate 81 82 81 Respiratory Rate 18 18 18 Blood Pressure 139/59 L Pulse Oximetry 94 Oxygen Delivery 05/18/25 03:05 05/18/25 03:11 05/18/25 03:57 Temperature 98.5 F Pulse Rate 76 78 85 Respiratory Rate 18 18 17 Blood Pressure 122/56 L Pulse Oximetry 94 Oxygen Delivery 05/18/25 07:41 05/18/25 07:48 05/18/25 08:00 Temperature 98.5 F Pulse Rate 92 90 100 Respiratory Rate 16 16 16 Blood Pressure 141/69 H Pulse Oximetry 96 Oxygen Delivery 05/18/25 08:06 Temperature Pulse Rate Respiratory Rate Blood Pressure Pulse Oximetry 93 Oxygen Delivery Room Air Intake/Output Intake/Output: Intake & Output 05/15/25 05/16/25 05/17/25 05/18/25 23:59 23:59 23:59 23:59 Intake Total 300 1990 1770 930 Output Total 2350 600 400 Balance 300 -360 1170 530 Meds/Results Medications: Active Medications Generic Name Dose Route Start Last Admin Trade Name Freq PRN Reason Stop Dose Admin Albuterol/Ipratropium 3 ml 05/16/25 02:00 05/18/25 08:04 Ipratropium 0.5 Mg/Albuterol Sulfate 2.5 Mg (Base) Ampul.Neb 3 Ml INHALATION 3 ml Q6HRT MARV Administration Diltiazem HCl 240 mg 05/16/25 09:00 05/18/25 09:20 Diltiazem Hcl Cd 240 Mg Cap.24hr PO Not Given DAILY MARV Albumin Human 320 mls @ 60 mls/hr 05/18/25 11:30 Albutein IVPB 05/18/25 16:49 ONCE ONE Azithromycin 500 mg/ Sodium 250 mls @ 250 mls/hr 05/18/25 18:00 Chloride IVPB 05/20/25 18:59 Q24H MARV Ceftriaxone Sodium 2 gm/ 100 mls @ 200 mls/hr 05/18/25 17:00 Sodium Chloride IVPB Q24H MARV Tramadol HCl 25 mg 05/16/25 01:24 05/16/25 04:06 Tramadol Hcl (*Crx) 25 Mg Tablet PO 25 mg Q4H PRN Administration Pain Rated 4-6 Radiology Results: ITS Impressions Abdomen/Pelvis CT 05/15/25 13:33 IMPRESSION: 1. Multifocal bilateral pneumonia, with small pleural effusions. 2. Colitis. Portal hypertensive versus infectious/inflammatory. 3. Cirrhosis. Hepatosplenomegaly. Decompensated portal hypertension. 4. Distended gallbladder. If concern for cholecystitis, recommend ultrasound and/or HIDA scan. 5. No hydronephrosis. 6. Moderate volume ascites. Upper Quadrant Ultrasound 05/15/25 15:25 Impression: Cirrhotic disease of the liver with underlying liver lesion suspected. Contrast-enhanced MRI recommended Abdomen MRI 05/16/25 13:31 IMPRESSION: 1. Cirrhosis without evident hepatic nodules or masses. Sensitivity is mildly decreased in the absence of intravenous contrast. If there is continued clinical concern could consider follow-up postcontrast imaging when patient's significant acute renal insufficiency improves. 2. Secondary portal venous hypertension with splenomegaly and recanalized umbilical vein with periumbilical varices. 3. Cholelithiasis with no intra or extrahepatic biliary ductal dilation. The associated mild gallbladder wall thickening is likely related to liver disease with no frances dilation of the gallbladder or sonographic Christy's sign on ultrasound study from one day prior to suggest acute cholecystitis. 4. Pneumonia in the lingula with very small bilateral pleural effusions. 5. Cardiomegaly. 6. Diffuse soft tissue edema and moderate amount of ascites in the abdomen and pelvis. 7. Edematous wall thickening of the proximal colon most likely related to hepatic colopathy with differential including colitis which could be infectious, inflammatory or less likely ischemic in etiology. Paracentesis Ultrasound 05/16/25 14:14 IMPRESSION: 1. Successful ultrasound-guided paracentesis yielding 2350 mL of straw-colored fluid. Renal Ultrasound 05/16/25 14:17 IMPRESSION: 1. Normal kidneys without hydronephrosis. 2. Moderate amount of ascites. Chest X-Ray 05/16/25 14:36 Impression: Bilateral pneumonia Labs Labs: Laboratory Results - last 24 hr 05/16/25 05/16/25 05/18/25 13:01 20:23 04:45 WBC 5.2 RBC 2.29 L Hgb 8.6 L Hct 26.2 L MCV 114.4 H MCH 37.6 H MCHC 32.8 RDW 15.7 H Plt Count 97 L MPV 11.1 H Immature Gran % (Auto) 1.4 H Neut % (Auto) 55.9 Lymph % (Auto) 22.6 Rogers % (Auto) 15.6 H Eos % (Auto) 3.9 Baso % (Auto) 0.6 Lymph # (Auto) 1.17 Rogers # (Auto) 0.8 H Eos # (Auto) 0.2 Baso # (Auto) 0.0 Abs Immat Gran (auto) 0.07 H Absolute Neuts (auto) 2.9 Absolute Nucleated RBC 0.000 Band Neutrophils % Not Reportable Nucleated RBC % 0.0 Platelet Estimate Decreased % Immature Plt Fraction 3.6 Hypochromasia 1+ Anisocytosis 1+ Macrocytosis 1+ Ovalocytes 1+ [place] Cells Occasional Schistocytes None seen Sodium 135 L Potassium 4.1 Chloride 102 Carbon Dioxide 24 Anion Gap 9 BUN 47 H Creatinine 2.14 H Estim Creat Clear Calc 33 Estimated GFR 31 L Glucose 102 Calcium 8.6 Total Bilirubin 5.7 H AST 53 ALT 19 Alkaline Phosphatase 137 H Total Protein 6.2 L Albumin 2.8 L Fluid Glucose 114 Fluid Total Protein 0.9 Fluid Albumin 0.5 Fluid LDH 32 Fluid Amylase 25 Legionella Source Cancelled Legionella Culture Cancelled Legionella Cult Status Cancelled
[2025-05-18] MEDS: ALBUMIN HUMAN IVPB (12:18)
[2025-05-18] MEDS: cefTRIAXone 2 GM in SODIUM CHLORIDE 0.9% IV 100 ML 200 ML IVPB (17:24)
[2025-05-18] MEDS: AZITHROMYCIN IV 500 MG in SODIUM CHLORIDE 0.9% IV 250 ML IVPB (18:08)
[2025-05-18] MEDS: traMADol HCL (*CRX) 25 MG TABLET PO (18:51)
[2025-05-19] VITALS (13 sets, daily range): BP systolic 126–139; BP diastolic 58–73; PULSE 82–99; RESP 16–20; TEMP 36.3–37.1; O2SAT 93–97
[2025-05-19] MEDS: IPRATROPIUM 0.5 MG/ALBUTEROL SULFATE 2.5 MG (BASE) AMPUL.NEB 3 ML INHALATION ×3 (02:08→20:05)
[2025-05-19 04:42] LABS: Hematocrit 24.8 % (42.0-52.0); Hemoglobin 8.1 g/dL (14.0-18.0); Immature Granulocyte Percent A 0.9 % (0-0.5); Immature Platelet Fraction Pct 2.8 % (0.9-11.2); Lymphocytes Absolute Auto 1.13 K/mm3 (0.9-3.2); Mean Corpuscular HGB Conc 32.7 g/dl (32-36); Mean Corpuscular Hemoglobin 37.7 pg (26-34); Mean Corpuscular Volume 115.3 fl (80-100); Nucleated Red Blood Cells Absolute Auto 0.000 K/mm3 (0.0-0.012); Nucleated Red Blood Cells Perc 0.0 % (0.0-0.2); Platelet Count Result 97 k/mm3 (150-375); Red Blood Count 2.15 M/mm3 (4.6-6.20); White Blood Count 4.4 K/mm3 (4.5-10.0)
[2025-05-19 05:02] LABS: Alanine Aminotransferase 20 U/L (6-50); Albumin Level 3.1 g/dL (3.5-5.1); Alkaline Phosphatase 108 U/L (38-126); Anion Gap 5 mmol/L (4-12); Aspartate Amino Transferase 54 U/L (17-59); Bilirubin,Total 6.8 mg/dL (0.2-1.3); Blood Urea Nitrogen 36 mg/dL (9-20); Calcium 8.6 mg/dL (8.4-10.2); Carbon Dioxide 26 mmol/L (22-30); Chloride 105 mmol/L (98-107); Estimated CRCL calculation 49 ml/min; Estimated Glomerular Filt Rate 50; Glucose 95 mg/dL (65-110); Potassium 4.0 mmol/L (3.4-5.0); Sodium 136 mmol/L (137-145); Total Protein 6.2 g/dL (6.3-8.2)
[2025-05-19 06:40] LABS: INR 2.4; Prothrombin Time 25.1 Seconds (11.1-14.7)
[2025-05-19] MEDS: dilTIAZem HCL CD 240 MG CAP.24HR PO (08:53)
--- NOTE | 2025-05-19 10:48 | P.PNNP_ITS ---
Progress Note: A&P Assessment and Plan (1) Acute kidney injury: Code(s): N17.9 - Acute kidney failure, unspecified Status: Acute Assessment and Plan: * slow improvement noted * as noted by admission labs (creatinine of 3.82mg/dL) * normal baseline creatinine by previous records * suspect multifactorial etiololgy: * prerenal factors * diuretic use (indapamide) [employer] * decompensated liver disease * relative anemia * infection (pneumonia) * early or variation of HRS(?) * other(?) * evaluation to date: * renal ultrasound without obstruction * urine electrolytes prerenal * urine eosinophils negative * CPK low * no significant proteinuria * s/p trial of gentle IVFs * follow repeat labs and UOP (2) Acute liver failure: Qualifiers: Hepatic coma status: without hepatic coma Qualified Code(s): K72.00 - Acute and subacute hepatic failure without coma Code(s): K72.00 - Acute and subacute hepatic failure without coma Status: Acute Assessment and Plan: * as noted by admission labs * however, LFTs appear to be slowly improving * complicated by known liver cirrhosis (see #5) (3) Pneumonia: Code(s): J18.9 - Pneumonia, unspecified organism Status: Acute Assessment and Plan: * suggested by admission imaging * however, afebrile, no significant WBC but has cough * on empiric antibiotics * follow culture data (4) Ascites: Code(s): R18.8 - Other ascites Status: Acute Assessment and Plan: * s/p large volume paracentesis (on 05/16) * started on IV Rocephin to cover for possible SBP * however, peritoneal fluid analysis not consistent with SBP * follow culture data (5) Cirrhosis: Qualifiers: Hepatic cirrhosis type: alcoholic cirrhosis Ascites presence: with ascites Qualified Code(s): K70.31 - Alcoholic cirrhosis of liver with ascites Code(s): K74.60 - Unspecified cirrhosis of liver Status: Acute Assessment and Plan: * seen at [facility] GI/hepatology February 01 * FibroScan consistent with advanced cirrhosis * reports he has cut back significantly on drinking * admision CT A/P with cirrhosis with hepatosplenomegaly and decompensated portal hypertension along with moderate volume ascites * getting IV albumin (6) Abdominal pain: Code(s): R10.9 - Unspecified abdominal pain Status: Acute Assessment and Plan: * presumably secondary to abdominal distension from ascites * CT A/P with colitis, distended gallbladder, moderate volume ascites * continue supportive therapy as noted above Will continue to follow. Subjective Date/time seen: 05/19/25 10:48 Interval history: Follow-up for acute kidney injury/acute renal failure. No acute distress noted at the time of my visit; renal function/creatinine continue to improve with current interventions/therapy in association with good urine output; noted plans for repeat large volume paracentesis later today; no apparen distress voiced when seen. Exam Narrative: General: WD/WN male in NAD Heart: normal S1 and S2; no rub Lungs: clear to auscultation Abdomen: soft, nontender, moderate distension, positive bowel sounds Extremities: no cyanosis or clubbing; no edema Skin: no rash or nodules Objective Data Vital Signs Vital Signs: Vital Signs Temp Pulse Resp BP Pulse Ox O2 Del Method FiO2 05/19/25 10:33 97.3 F L 90 16 134/69 95 05/19/25 08:50 Room Air 05/19/25 08:19 89 94 Room Air 21 05/19/25 08:11 98.7 F 94 16 133/73 95 05/19/25 07:50 89 18 05/19/25 07:40 89 18 05/19/25 03:42 98.5 F 92 17 139/71 95 05/19/25 02:17 99 18 05/19/25 02:09 99 18 05/18/25 23:21 98.5 F 97 17 144/76 H 96 05/18/25 20:14 96 18 05/18/25 20:06 98 94 Room Air 21 05/18/25 20:06 98 18 05/18/25 20:00 105 H 17 94 Room Air 05/18/25 20:00 98.8 F 105 H 17 131/57 L 94 Intake/Output Intake/Output: Intake & Output 05/16/25 05/17/25 05/18/2505/19/25 23:59 23:59 23:59 23:59 Intake Total 1989 1770 1760 240 Output Total 2350 600 1000 3400 Balance -360 1170 760 -3160 Meds/Results Medications: Active Medications Generic Name Dose Route Start Last Admin Trade Name Freq PRN Reason Stop Dose Admin Albuterol/Ipratropium 3 ml 05/16/25 02:00 05/19/25 13:40 Ipratropium 0.5 Mg/Albuterol Sulfate 2.5 Mg (Base) Ampul.Neb 3 Ml INHALATION Not Given Q6HRT MARV Diltiazem HCl 240 mg 05/16/25 09:00 05/19/25 08:53 Diltiazem Hcl Cd 240 Mg Cap.24hr PO 240 mg DAILY MARV Administration Azithromycin 500 mg/ Sodium 250 mls @ 250 mls/hr 05/18/25 18:00 05/19/25 17:05 Chloride IVPB 05/20/25 18:59 250 mls/hr Q24H MARV Administration Ceftriaxone Sodium 2 gm/ 100 mls @ 200 mls/hr 05/18/25 17:00 05/19/25 17:04 Sodium Chloride IVPB 200 mls/hr Q24H MARV Administration Albumin Human 320 mls @ 60 mls/hr 05/19/25 15:00 05/19/25 15:32 Albutein IVPB 05/19/25 20:19 60 mls/hr ONCE ONE Administration Tramadol HCl 25 mg 05/16/25 01:24 05/18/25 18:51 Tramadol Hcl (*Crx) 25 Mg Tablet PO 25 mg Q4H PRN Administration Pain Rated 4-6 Radiology Results: ITS Impressions Abdomen/Pelvis CT 05/15/25 13:33 IMPRESSION: 1. Multifocal bilateral pneumonia, with small pleural effusions. 2. Colitis. Portal hypertensive versus infectious/inflammatory. 3. Cirrhosis. Hepatosplenomegaly. Decompensated portal hypertension. 4. Distended gallbladder. If concern for cholecystitis, recommend ultrasound and/or HIDA scan. 5. No hydronephrosis. 6. Moderate volume ascites. Upper Quadrant Ultrasound 05/15/25 15:25 Impression: Cirrhotic disease of the liver with underlying liver lesion suspected. Contrast- enhanced MRI recommended Abdomen MRI 05/16/25 13:31 IMPRESSION: 1. Cirrhosis without evident hepatic nodules or masses. Sensitivity is mildly decreased in the absence of intravenous contrast. If there is continued clinical concern could consider follow-up postcontrast imaging when patient's significant acute renal insufficiency improves. 2. Secondary portal venous hypertension with splenomegaly and recanalized umbilical vein with periumbilical varices. 3. Cholelithiasis with no intra or extrahepatic biliary ductal dilation. The associated mild gallbladder wall thickening is likely related to liver disease with no frances dilation of the gallbladder or sonographic Christy's sign on ultrasound study from one day prior to suggest acute cholecystitis. 4. Pneumonia in the lingula with very small bilateral pleural effusions. 5. Cardiomegaly. 6. Diffuse soft tissue edema and moderate amount of ascites in the abdomen and pelvis. 7. Edematous wall thickening of the proximal colon most likely related to hepatic colopathy with differential including colitis which could be infectious, inflammatory or less likely ischemic in etiology. Renal Ultrasound 05/16/25 14:17 IMPRESSION: 1. Normal kidneys without hydronephrosis. 2. Moderate amount of ascites. Chest X-Ray 05/16/25 14:36 Impression: Bilateral pneumonia Labs Labs: Laboratory Results - last 24 hr 05/19/25 04:25 WBC 4.4 L Hgb 8.1 L Hct 24.8 L Plt Count 97 L PT 25.1 H INR 2.4 Sodium 136 L Potassium 4.0 Chloride 105 Carbon Dioxide 26 Anion Gap 5 BUN 36 H D Creatinine 1.42 H Estim Creat Clear Calc 49 Estimated GFR 50 L Glucose 95 Calcium 8.6 Total Bilirubin 6.8 H AST 54 ALT 20 Alkaline Phosphatase 108 Total Protein 6.2 L Albumin 3.1 L Cryoglobulin Qualit
[2025-05-19 11:23] LABS: Hematocrit 26.0 % (42.0-52.0); Hemoglobin 8.4 g/dL (14.0-18.0)
--- NOTE | 2025-05-19 14:29 | P.PNIM_ITS ---
Progress Note: A&P Assessment and Plan (1) Acute liver failure: Qualifiers: Hepatic coma status: without hepatic coma Qualified Code(s): K72.00 - Acute and subacute hepatic failure without coma Code(s): K72.00 - Acute and subacute hepatic failure without coma Status: Ruled-out Assessment and Plan: - initial t bili 10.1, AST 62, ALT 26, alk phos 177, INR 1.9 - continues to improve - MELD 34 - seen at [facility] GI/hepatology February 01 at which time he had a FibroScan consistent with advanced cirrhosis. - reports he has cut back significantly on drinking. Encouraged complete cessation. - CT A/P with cirrhosis with hepatosplenomegaly and decompensated portal hypertension. Moderate volume ascites. - started on IV Rocephin to cover for possible SBP - s/p paracentesis 05/17 with 2350 cc fluid removed. Repeat 05/19 with 3400 cc removed. Fluid analysis not consistent with SBP. Diuretics contraindicated due to [place]. - GI following. No indication for steroids or EGD at this time. Ordered additional 80 g albumin today. - daily CMP (2) Acute renal failure: Code(s): N17.9 - Acute kidney failure, unspecified Status: Acute Assessment and Plan: - admit Cr 3.82. Cr was 0.7 09/2020. - likely prerenal in setting of cirrhosis, dehydration as patient reports poor PO intake x1 week. Hepatorenal syndrome is also a concern. - renal US with no hydronephrosis - home Lozol on hold - s/p IV fluids. PO intake improving. - hold nephrotoxic medication. - Cr significantly improved with IV fluids and albumin. - monitor urine output - nephrology following (3) Pneumonia: Code(s): J18.9 - Pneumonia, unspecified organism Status: Acute Assessment and Plan: - CT A/P showed multifocal opacities. Patient complains of a cough. -Afebrile. Initial WBC 11.8, improved. - continue Rocephin/azithromycin - DuoNebs -blood and sputum cultures are pending. (4) Ascites: Code(s): R18.8 - Other ascites Status: Acute Assessment and Plan: - management as above (5) Cirrhosis: Qualifiers: Hepatic cirrhosis type: alcoholic cirrhosis Ascites presence: with ascites Qualified Code(s): K70.31 - Alcoholic cirrhosis of liver with ascites Code(s): K74.60 - Unspecified cirrhosis of liver Status: Acute Assessment and Plan: - management as above (6) Abdominal pain: Code(s): R10.9 - Unspecified abdominal pain Status: Acute Assessment and Plan: - complaining of diffuse abdominal discomfort related to distention - CT A/P with colitis, distended gallbladder, moderate volume ascites - low suspicion for cholecystitis given no specific right upper quadrant abdominal pain - suspect pain related to distention from ascites. (7) Melena: Code(s): K92.1 - Melena Status: Ruled-out Assessment and Plan: - patient reported dark/tarry stools, initially loose stool, now more formed - Hgb 11.3 on admission, trended down to 8.6. Could be hemodilutional due to IV fluids superimposed on cirrhosis. - CT A/P with colitis - portal hypertensive versus infectious/inflammatory - monitor - GI following and completed guaiac stool which was negative. Stopped IV protonix. (8) Personal history of malignant melanoma of skin: Code(s): Z85.820 - Personal history of malignant melanoma of skin Status: Acute Assessment and Plan: -prior history of melanoma of the RLE s/p excision. Receives biannual PET scans (9) Thrombocytopenia: Code(s): D69.6 - Thrombocytopenia, unspecified Status: Acute Assessment and Plan: - Plts 97, likely related to cirrhosis - monitor CBC (10) Anemia: Code(s): D64.9 - Anemia, unspecified Status: Acute Assessment and Plan: -Hgb 11.3-->8.6, now stable. - likely hemodilutional and related to cirrhosis. Guaiac stool negative. Continue to monitor CBC. Plan DVT prophylaxis: SCDs Code status: full code Dispo: likely home in 1-2 days if continues to improve Subjective Date/time seen: 05/19/25 14:29 Interval history: Patient seen and examined at bedside. States he is feeling great today. Having better urine output, distention improved. Review of Systems Review of Systems: All systems reviewed & are unremarkable except as noted in HPI and below Exam Narrative: General: NAD Eyes: EOMI ENT: neck supple, scleral icterus Cardiovascular: Regular rate and rhythm Respiratory: Clear to auscultation, respirations even and unlabored on RA Gastrointestinal: mild distention, nontender Genitourinary: no suprapubic tenderness Musculoskeletal: No edema Skin: warm, dry Neuro: Alert. Psych: Mood appropriate Objective Data Vital Signs Vital Signs: Vital Signs - 24 hr 05/18/25 16:00 05/18/25 20:00 05/18/25 20:00 Temperature 98.8 F 98.8 F Pulse Rate 100 105 H 105 H Respiratory Rate 16 17 17 Blood Pressure 137/72 131/57 L Pulse Oximetry 96 94 94 Oxygen Delivery Room Air Fraction of Inspired Oxygen 05/18/25 20:06 05/18/25 20:06 05/18/25 20:14 Temperature Pulse Rate 98 98 96 Respiratory Rate 18 18 Blood Pressure Pulse Oximetry 94 Oxygen Delivery Room Air Fraction of Inspired Oxygen 21 05/18/25 23:21 05/19/25 02:09 05/19/25 02:17 Temperature 98.5 F Pulse Rate 97 99 99 Respiratory Rate 17 18 18 Blood Pressure 144/76 H Pulse Oximetry 96 Oxygen Delivery Fraction of Inspired Oxygen 05/19/25 03:42 05/19/25 07:40 05/19/25 07:50 Temperature 98.5 F Pulse Rate 92 89 89 Respiratory Rate 17 18 18 Blood Pressure 139/71 Pulse Oximetry 95 Oxygen Delivery Fraction of Inspired Oxygen 05/19/25 08:11 05/19/25 08:19 05/19/25 08:50 Temperature 98.7 F Pulse Rate 94 89 Respiratory Rate 16 Blood Pressure 133/73 Pulse Oximetry 95 94 Oxygen Delivery Room Air Room Air Fraction of Inspired Oxygen 21 05/19/25 11:33 Temperature 97.3 F L Pulse Rate 90 Respiratory Rate 16 Blood Pressure 134/69 Pulse Oximetry 95 Oxygen Delivery Fraction of Inspired Oxygen Intake/Output Intake/Output: Intake & Output 05/16/25 05/17/25 05/18/25 05/19/25 23:59 23:59 23:59 23:59 Intake Total 1989 1770 1510 240 Output Total 2350 600 1000 3400 Balance -360 1170 510 -3160 Meds/Results Medications: Active Medications Generic Name Dose Route Start Last Admin Trade Name Freq PRN Reason Stop Dose Admin Albuterol/Ipratropium 3 ml 05/16/25 02:00 05/19/25 13:40 Ipratropium 0.5 Mg/Albuterol Sulfate 2.5 Mg (Base) Ampul.Neb 3 Ml INHALATION Not Given Q6HRT MARV Diltiazem HCl 240 mg 05/16/25 09:00 05/19/25 08:53 Diltiazem Hcl Cd 240 Mg Cap.24hr PO 240 mg DAILY MARV Administration Azithromycin 500 mg/ Sodium 250 mls @ 250 mls/hr 05/18/25 18:00 05/18/25 18:08 Chloride IVPB 05/20/25 18:59 250 mls/hr Q24H MARV Administration Ceftriaxone Sodium 2 gm/ 100 mls @ 200 mls/hr 05/18/25 17:00 05/18/25 17:54 Sodium Chloride IVPB Infused Q24H MARV Infusion Tramadol HCl 25 mg 05/16/25 01:24 05/18/25 18:51 Tramadol Hcl (*Crx) 25 Mg Tablet PO 25 mg Q4H PRN Administration Pain Rated 4-6 Radiology Results: ITS Impressions Abdomen/Pelvis CT 05/15/25 13:33 IMPRESSION: 1. Multifocal bilateral pneumonia, with small pleural effusions. 2. Colitis. Portal hypertensive versus infectious/inflammatory. 3. Cirrhosis. Hepatosplenomegaly. Decompensated portal hypertension. 4. Distended gallbladder. If concern for cholecystitis, recommend ultrasound and/or HIDA scan. 5. No hydronephrosis. 6. Moderate volume ascites. Upper Quadrant Ultrasound 05/15/25 15:25 Impression: Cirrhotic disease of the liver with underlying liver lesion suspected. Contrast- enhanced MRI recommended Abdomen MRI 05/16/25 13:31 IMPRESSION: 1. Cirrhosis without evident hepatic nodules or masses. Sensitivity is mildly decreased in the absence of intravenous contrast. If there is continued clinical concern could consider follow-up postcontrast imaging when patient's significant acute renal insufficiency improves. 2. Secondary portal venous hypertension with splenomegaly and recanalized umbilical vein with periumbilical varices. 3. Cholelithiasis with no intra or extrahepatic biliary ductal dilation. The associated mild gallbladder wall thickening is likely related to liver disease with no frances dilation of the gallbladder or sonographic Christy's sign on ultrasound study from one day prior to suggest acute cholecystitis. 4. Pneumonia in the lingula with very small bilateral pleural effusions. 5. Cardiomegaly. 6. Diffuse soft tissue edema and moderate amount of ascites in the abdomen and pelvis. 7. Edematous wall thickening of the proximal colon most likely related to hepatic colopathy with differential including colitis which could be infectious, inflammatory or less likely ischemic in etiology. Renal Ultrasound 05/16/25 14:17 IMPRESSION: 1. Normal kidneys without hydronephrosis. 2. Moderate amount of ascites. Chest X-Ray 05/16/25 14:36 Impression: Bilateral pneumonia Paracentesis Ultrasound 05/19/25 14:01 IMPRESSION: 1. Successful ultrasound-guided paracentesis yielding 3400 mL of clear yellow fluid. Labs Labs: Laboratory Results - last 24 hr 05/17/25 05/19/25 05/19/25 05:25 04:25 06:07 WBC 4.4 L RBC 2.15 L Hgb 8.1 L Hct 24.8 L MCV 115.3 H MCH 37.7 H MCHC 32.7 RDW 15.7 H Plt Count 97 L MPV 10.3 Immature Gran % (Auto) 0.9 H Neut % (Auto) 53.7 Lymph % (Auto) 25.9 [place] % (Auto) 15.6 H Eos % (Auto) 3.7 Baso % (Auto) 0.2 Lymph # (Auto) 1.13 [place] # (Auto) 0.7 H Eos # (Auto) 0.2 Baso # (Auto) 0.0 Abs Immat Gran (auto) 0.04 H Absolute Neuts (auto) 2.3 Absolute Nucleated RBC 0.000 Nucleated RBC % 0.0 % Immature Plt Fraction 2.8 PT 25.1 H D INR 2.4 Sodium 136 L Potassium 4.0 Chloride 105 Carbon Dioxide 26 Anion Gap 5 BUN 36 H D Creatinine 1.42 H Estim Creat Clear Calc 49 Estimated GFR 50 L Glucose 95 Calcium 8.6 Total Bilirubin 6.8 H AST 54 ALT 20 Alkaline Phosphatase 108 Total Protein 6.2 L Albumin 3.1 L Cryoglobulin Qualit Cancelled 05/19/25 11:17 WBC RBC Hgb 8.4 L Hct 26.0 L MCV MCH MCHC RDW Plt Count MPV Immature Gran % (Auto) Neut % (Auto) Lymph % (Auto) [place] % (Auto) Eos % (Auto) Baso % (Auto) Lymph # (Auto) [place] # (Auto) Eos # (Auto) Baso # (Auto) Abs Immat Gran (auto) Absolute Neuts (auto) Absolute Nucleated RBC Nucleated RBC % % Immature Plt Fraction PT INR Sodium Potassium Chloride Carbon Dioxide Anion Gap BUN Creatinine Estim Creat Clear Calc Estimated GFR Glucose Calcium Total Bilirubin AST ALT Alkaline Phosphatase Total Protein Albumin Cryoglobulin Qualit
--- NOTE | 2025-05-19 14:38 | WPDGIPROGNO ---
Progress Note: A&P Assessment and Plan (1) Ascites: Code(s): R18.8 - Other ascites Status: Acute Assessment and Plan: Patient with problems discussed yesterday. Creatinine today much improved from yesterday, today 1.42. Despite not taking over 5 L of ascitic fluid, will see replace albumin, 80 g today x1, since it is correcting his pre renal acute kidney injury. will check creatinine tomorrow and if still trending to improve significantly will discharge home. Will send referral to [facility] to consider liver transplantation at some point. This was discussed with the patient already. (2) Cirrhosis: Qualifiers: Hepatic cirrhosis type: alcoholic cirrhosis Ascites presence: with ascites Qualified Code(s): K70.31 - Alcoholic cirrhosis of liver with ascites Code(s): K74.60 - Unspecified cirrhosis of liver Status: Acute Subjective Date/time seen: 05/19/25 14:38 Interval history: patient doing well, large from paracentesis just done, over 2 L removed. Exam Narrative: Unchanged from Yesterday's. Objective Data Vital Signs Vital Signs: Vital Signs - 24 hr 05/18/25 16:00 05/18/25 20:00 05/18/25 20:00 Temperature 98.8 F 98.8 F Pulse Rate 100 105 H 105 H Respiratory Rate 16 17 17 Blood Pressure 137/72 131/57 L Pulse Oximetry 96 94 94 Oxygen Delivery Room Air Fraction of Inspired Oxygen 05/18/25 20:06 05/18/25 20:06 05/18/25 20:14 Temperature Pulse Rate 98 98 96 Respiratory Rate 18 18 Blood Pressure Pulse Oximetry 94 Oxygen Delivery Room Air Fraction of Inspired Oxygen 21 05/18/25 23:21 05/19/25 02:09 05/19/25 02:17 Temperature 98.5 F Pulse Rate 97 99 99 Respiratory Rate 17 18 18 Blood Pressure 144/76 H Pulse Oximetry 96 Oxygen Delivery Fraction of Inspired Oxygen 05/19/25 03:42 05/19/25 07:40 05/19/25 07:50 Temperature 98.5 F Pulse Rate 92 89 89 Respiratory Rate 17 18 18 Blood Pressure 139/71 Pulse Oximetry 95 Oxygen Delivery Fraction of Inspired Oxygen 05/19/25 08:11 05/19/25 08:19 05/19/25 08:50 Temperature 98.7 F Pulse Rate 94 89 Respiratory Rate 16 Blood Pressure 133/73 Pulse Oximetry 95 94 Oxygen Delivery Room Air Room Air Fraction of Inspired Oxygen 21 05/19/25 11:33 Temperature 97.3 F L Pulse Rate 90 Respiratory Rate 16 Blood Pressure 134/69 Pulse Oximetry 95 Oxygen Delivery Fraction of Inspired Oxygen Intake/Output Intake/Output: Intake & Output 05/16/25 05/17/25 05/18/25 05/19/25 23:59 23:59 23:59 23:59 Intake Total 1989 1770 1510 240 Output Total 2350 600 1000 3400 Balance -360 1170 510 -3160 Meds/Results Medications: Active Medications Generic Name Dose Route Start Last Admin Trade Name Freq PRN Reason Stop Dose Admin Albuterol/Ipratropium 3 ml 05/16/25 02:00 05/19/25 13:40 Ipratropium 0.5 Mg/Albuterol Sulfate 2.5 Mg (Base) Ampul.Neb 3 Ml INHALATION Not Given Q6HRT MARV Diltiazem HCl 240 mg 05/16/25 09:00 05/19/25 08:53 Diltiazem Hcl Cd 240 Mg Cap.24hr PO 240 mg DAILY MARV Administration Azithromycin 500 mg/ Sodium 250 mls @ 250 mls/hr 05/18/25 18:00 05/18/25 18:08 Chloride IVPB 05/20/25 18:59 250 mls/hr Q24H MARV Administration Ceftriaxone Sodium 2 gm/ 100 mls @ 200 mls/hr 05/18/25 17:00 05/18/25 17:54 Sodium Chloride IVPB Infused Q24H MARV Infusion Tramadol HCl 25 mg 05/16/25 01:24 05/18/25 18:51 Tramadol Hcl (*Crx) 25 Mg Tablet PO 25 mg Q4H PRN Administration Pain Rated 4-6 Radiology Results: ITS Impressions Abdomen/Pelvis CT 05/15/25 13:33 IMPRESSION: 1. Multifocal bilateral pneumonia, with small pleural effusions. 2. Colitis. Portal hypertensive versus infectious/inflammatory. 3. Cirrhosis. Hepatosplenomegaly. Decompensated portal hypertension. 4. Distended gallbladder. If concern for cholecystitis, recommend ultrasound and/or HIDA scan. 5. No hydronephrosis. 6. Moderate volume ascites. Upper Quadrant Ultrasound 05/15/25 15:25 Impression: Cirrhotic disease of the liver with underlying liver lesion suspected. Contrast-enhanced MRI recommended Abdomen MRI 05/16/25 13:31 IMPRESSION: 1. Cirrhosis without evident hepatic nodules or masses. Sensitivity is mildly decreased in the absence of intravenous contrast. If there is continued clinical concern could consider follow-up postcontrast imaging when patient's significant acute renal insufficiency improves. 2. Secondary portal venous hypertension with splenomegaly and recanalized umbilical vein with periumbilical varices. 3. Cholelithiasis with no intra or extrahepatic biliary ductal dilation. The associated mild gallbladder wall thickening is likely related to liver disease with no frances dilation of the gallbladder or sonographic Christy's sign on ultrasound study from one day prior to suggest acute cholecystitis. 4. Pneumonia in the lingula with very small bilateral pleural effusions. 5. Cardiomegaly. 6. Diffuse soft tissue edema and moderate amount of ascites in the abdomen and pelvis. 7. Edematous wall thickening of the proximal colon most likely related to hepatic colopathy with differential including colitis which could be infectious, inflammatory or less likely ischemic in etiology. Renal Ultrasound 05/16/25 14:17 IMPRESSION: 1. Normal kidneys without hydronephrosis. 2. Moderate amount of ascites. Chest X-Ray 05/16/25 14:36 Impression: Bilateral pneumonia Paracentesis Ultrasound 05/19/25 14:01 IMPRESSION: 1. Successful ultrasound-guided paracentesis yielding 3400 mL of clear yellow fluid. Labs Labs: Laboratory Results - last 24 hr 05/17/25 05/19/25 05/19/25 05:25 04:25 06:07 WBC 4.4 L RBC 2.15 L Hgb 8.1 L Hct 24.8 L MCV 115.3 H MCH 37.7 H MCHC 32.7 RDW 15.7 H Plt Count 97 L MPV 10.3 Immature Gran % (Auto) 0.9 H Neut % (Auto) 53.7 Lymph % (Auto) 25.9 [place] % (Auto) 15.6 H Eos % (Auto) 3.7 Baso % (Auto) 0.2 Lymph # (Auto) 1.13 [place] # (Auto) 0.7 H Eos # (Auto) 0.2 Baso # (Auto) 0.0 Abs Immat Gran (auto) 0.04 H Absolute Neuts (auto) 2.3 Absolute Nucleated RBC 0.000 Nucleated RBC % 0.0 % Immature Plt Fraction 2.8 PT 25.1 H D INR 2.4 Sodium 136 L Potassium 4.0 Chloride 105 Carbon Dioxide 26 Anion Gap 5 BUN 36 H D Creatinine 1.42 H Estim Creat Clear Calc 49 Estimated GFR 50 L Glucose 95 Calcium 8.6 Total Bilirubin 6.8 H AST 54 ALT 20 Alkaline Phosphatase 108 Total Protein 6.2 L Albumin 3.1 L Cryoglobulin Qualit Cancelled 05/19/25 11:17 WBC RBC Hgb 8.4 L Hct 26.0 L MCV MCH MCHC RDW Plt Count MPV Immature Gran % (Auto) Neut % (Auto) Lymph % (Auto) [place] % (Auto) Eos % (Auto) Baso % (Auto) Lymph # (Auto) [place] # (Auto) Eos # (Auto) Baso # (Auto) Abs Immat Gran (auto) Absolute Neuts (auto) Absolute Nucleated RBC Nucleated RBC % % Immature Plt Fraction PT INR Sodium Potassium Chloride Carbon Dioxide Anion Gap BUN Creatinine Estim Creat Clear Calc Estimated GFR Glucose Calcium Total Bilirubin AST ALT Alkaline Phosphatase Total Protein Albumin Cryoglobulin Qualit
[2025-05-19] MEDS: ALBUMIN HUMAN IVPB (15:32)
[2025-05-19] MEDS: cefTRIAXone 2 GM in SODIUM CHLORIDE 0.9% IV 100 ML 200 ML IVPB (17:04)
[2025-05-19] MEDS: AZITHROMYCIN IV 500 MG in SODIUM CHLORIDE 0.9% IV 250 ML IVPB (17:35)
[2025-05-20] VITALS (7 sets, daily range): BP systolic 110–122; BP diastolic 46–66; PULSE 79–93; RESP 14–20; TEMP 36.4–36.8; O2SAT 95–98
[2025-05-20] MEDS: IPRATROPIUM 0.5 MG/ALBUTEROL SULFATE 2.5 MG (BASE) AMPUL.NEB 3 ML INHALATION ×2 (01:53→07:38)
[2025-05-20 05:17] LABS: Hematocrit 24.1 % (42.0-52.0); Hemoglobin 7.8 g/dL (14.0-18.0); Immature Granulocyte Percent A 0.6 % (0-0.5); Immature Platelet Fraction Pct 2.9 % (0.9-11.2); Lymphocytes Absolute Auto 1.23 K/mm3 (0.9-3.2); Mean Corpuscular HGB Conc 32.4 g/dl (32-36); Mean Corpuscular Hemoglobin 38.0 pg (26-34); Mean Corpuscular Volume 117.6 fl (80-100); Nucleated Red Blood Cells Absolute Auto 0.000 K/mm3 (0.0-0.012); Nucleated Red Blood Cells Perc 0.0 % (0.0-0.2); Platelet Count Result 99 k/mm3 (150-375); Red Blood Count 2.05 M/mm3 (4.6-6.20); White Blood Count 4.9 K/mm3 (4.5-10.0)
[2025-05-20 05:32] LABS: Alanine Aminotransferase 23 U/L (6-50); Albumin Level 3.3 g/dL (3.5-5.1); Alkaline Phosphatase 123 U/L (38-126); Anion Gap 8 mmol/L (4-12); Aspartate Amino Transferase 51 U/L (17-59); Bilirubin,Total 5.6 mg/dL (0.2-1.3); Blood Urea Nitrogen 32 mg/dL (9-20); Calcium 9.0 mg/dL (8.4-10.2); Carbon Dioxide 27 mmol/L (22-30); Chloride 104 mmol/L (98-107); Estimated CRCL calculation 55 ml/min; Estimated Glomerular Filt Rate 57; Glucose 113 mg/dL (65-110); Potassium 5.0 mmol/L (3.4-5.0); Sodium 139 mmol/L (137-145); Total Protein 6.3 g/dL (6.3-8.2)
[2025-05-20 05:36] LABS: INR 2.4; Prothrombin Time 25.3 Seconds (11.1-14.7)
[2025-05-20 05:53] LABS: Anisocytosis 1+; Macrocytosis 1+ (NORMAL)
[2025-05-20 05:54] LABS: Hypochromasia 1+; Ovalocytes 1+; Schistocytes Rare
--- NOTE | 2025-05-20 07:22 | P.PNGI_ITS ---
Progress Note: A&P Assessment and Plan (1) Cirrhosis: Qualifiers: Hepatic cirrhosis type: alcoholic cirrhosis Ascites presence: with ascites Qualified Code(s): K70.31 - Alcoholic cirrhosis of liver with ascites Code(s): K74.60 - Unspecified cirrhosis of liver Status: Acute Assessment and Plan: Patient with alcohol-related cirrhosis, much improved, today's creatinine 1.28. Will send patient home on spironolactone 100 mg q.d. plus Lasix 40 mg q.d.. Patient encouraged to follow a low-sodium diet and to obtain from alcohol. Will put a referral for hepatology at [facility] for possible transplant in the future and will see him in our GI Clinic. (2) Ascites: Code(s): R18.8 - Other ascites Status: Acute Subjective Date/time seen: 05/20/25 07:22 Interval history: Patient is currently asymptomatic, much relieved after paracentesis of 3400 cc of ascitic fluid. Exam Narrative: Abdomen: Soft, nontender, no hepatosplenomegaly. Rest of exam unchanged. Objective Data Vital Signs Vital Signs: Vital Signs - 24 hr 05/19/25 07:40 05/19/25 07:50 05/19/25 08:11 Temperature 98.7 F Pulse Rate 89 89 94 Respiratory Rate 18 18 16 Blood Pressure 133/73 Pulse Oximetry 95 Oxygen Delivery Fraction of Inspired Oxygen 05/19/25 08:19 05/19/25 08:50 05/19/25 11:33 Temperature 97.3 F L Pulse Rate 89 90 Respiratory Rate 16 Blood Pressure 134/69 Pulse Oximetry 94 95 Oxygen Delivery Room Air Room Air Fraction of Inspired Oxygen 21 05/19/25 15:42 05/19/25 20:00 05/19/25 20:00 Temperature 97.9 F 98.1 F Pulse Rate 84 82 Respiratory Rate 18 18 Blood Pressure 126/58 L 130/59 L Pulse Oximetry 97 97 Oxygen Delivery Room Air Fraction of Inspired Oxygen 05/19/25 20:06 05/19/25 20:07 05/19/25 20:15 Temperature Pulse Rate 83 83 85 Respiratory Rate 20 20 20 Blood Pressure Pulse Oximetry 93 Oxygen Delivery Room Air Fraction of Inspired Oxygen 21 05/20/25 00:00 05/20/25 01:53 05/20/25 02:02 Temperature 98.3 F Pulse Rate 86 89 88 Respiratory Rate 18 20 20 Blood Pressure 120/46 L Pulse Oximetry 98 Oxygen Delivery Fraction of Inspired Oxygen 05/20/25 04:00 05/20/25 06:13 Temperature 97.9 F 98.1 F Pulse Rate 81 80 Respiratory Rate 18 18 Blood Pressure 110/51 L 112/51 L Pulse Oximetry 95 96 Oxygen Delivery Fraction of Inspired Oxygen Intake/Output Intake/Output: Intake & Output 05/17/25 05/18/25 05/19/25 05/20/25 23:59 23:59 23:59 23:59 Intake Total 1770 1760 1270 Output Total 600 1000 3401 Balance 1170 038 -2131 Meds/Results Medications: Active Medications Generic Name Dose Route Start Last Admin Trade Name Freq PRN Reason Stop Dose Admin Albuterol/Ipratropium 3 ml 05/16/25 02:00 05/20/25 01:53 Ipratropium 0.5 Mg/Albuterol Sulfate 2.5 Mg (Base) Ampul.Neb 3 Ml INHALATION 3 ml Q6HRT MARV Administration Azithromycin 500 mg/ Sodium 250 mls @ 250 mls/hr 05/18/25 18:00 05/19/25 18:37 Chloride IVPB 05/20/25 18:59 Infused Q24H MARV Infusion Ceftriaxone Sodium 2 gm/ 100 mls @ 200 mls/hr 05/18/25 17:00 05/19/25 17:34 Sodium Chloride IVPB Infused Q24H MARV Infusion Tramadol HCl 25 mg 05/16/25 01:24 05/18/25 18:51 Tramadol Hcl (*Crx) 25 Mg Tablet PO 25 mg Q4H PRN Administration Pain Rated 4-6 Radiology Results: ITS Impressions Abdomen/Pelvis CT 05/15/25 13:33 IMPRESSION: 1. Multifocal bilateral pneumonia, with small pleural effusions. 2. Colitis. Portal hypertensive versus infectious/inflammatory. 3. Cirrhosis. Hepatosplenomegaly. Decompensated portal hypertension. 4. Distended gallbladder. If concern for cholecystitis, recommend ultrasound and/or HIDA scan. 5. No hydronephrosis. 6. Moderate volume ascites. Upper Quadrant Ultrasound 05/15/25 15:25 Impression: Cirrhotic disease of the liver with underlying liver lesion suspected. Contrast- enhanced MRI recommended Abdomen MRI 05/16/25 13:31 IMPRESSION: 1. Cirrhosis without evident hepatic nodules or masses. Sensitivity is mildly decreased in the absence of intravenous contrast. If there is continued clinical concern could consider follow-up postcontrast imaging when patient's significant acute renal insufficiency improves. 2. Secondary portal venous hypertension with splenomegaly and recanalized umbilical vein with periumbilical varices. 3. Cholelithiasis with no intra or extrahepatic biliary ductal dilation. The associated mild gallbladder wall thickening is likely related to liver disease with no frances dilation of the gallbladder or sonographic Christy's sign on ultrasound study from one day prior to suggest acute cholecystitis. 4. Pneumonia in the lingula with very small bilateral pleural effusions. 5. Cardiomegaly. 6. Diffuse soft tissue edema and moderate amount of ascites in the abdomen and pelvis. 7. Edematous wall thickening of the proximal colon most likely related to hepatic colopathy with differential including colitis which could be infectious, inflammatory or less likely ischemic in etiology. Renal Ultrasound 05/16/25 14:17 IMPRESSION: 1. Normal kidneys without hydronephrosis. 2. Moderate amount of ascites. Chest X-Ray 05/16/25 14:36 Impression: Bilateral pneumonia Paracentesis Ultrasound 05/19/25 14:01 IMPRESSION: 1. Successful ultrasound-guided paracentesis yielding 3400 mL of clear yellow fluid. Labs Labs: Laboratory Results - last 24 hr 05/17/25 05/19/25 05/20/25 05:25 11:17 04:34 WBC 4.9 RBC 2.05 L Hgb 8.4 L 7.8 L Hct 26.0 L 24.1 L MCV 117.6 H MCH 38.0 H MCHC 32.4 RDW 15.7 H Plt Count 99 L MPV 10.5 H Immature Gran % (Auto) 0.6 H Neut % (Auto) 56.7 Lymph % (Auto) 25.1 [place] % (Auto) 14.3 H Eos % (Auto) 2.9 Baso % (Auto) 0.4 Lymph # (Auto) 1.23 [place] # (Auto) 0.7 H Eos # (Auto) 0.1 Baso # (Auto) 0.0 Abs Immat Gran (auto) 0.03 Absolute Neuts (auto) 2.8 Absolute Nucleated RBC 0.000 Band Neutrophils % Not Reportable Nucleated RBC % 0.0 Platelet Estimate Decreased % Immature Plt Fraction 2.9 Hypochromasia 1+ Anisocytosis 1+ Macrocytosis 1+ Ovalocytes 1+ Schistocytes Rare PT 25.3 H INR 2.4 Sodium 139 Potassium 5.0 Chloride 104 Carbon Dioxide 27 Anion Gap 8 BUN 32 H Creatinine 1.28 Estim Creat Clear Calc 55 Estimated GFR 57 L Glucose 113 H Calcium 9.0 Total Bilirubin 5.6 H AST 51 ALT 23 Alkaline Phosphatase 123 Total Protein 6.3 Albumin 3.3 L Cryoglobulin Qualit Cancelled
[2025-05-20 10:37] LABS: Hematocrit 23.8 % (42.0-52.0); Hemoglobin 7.8 g/dL (14.0-18.0)
--- NOTE | 2025-05-20 11:07 | P.DS_ITS ---
DS: Admitting Diagnosis Discharge Date 05/20/25 Admitting Diagnosis - cirrhosis - ascites - acute renal failure - acute liver failure - pneumonia - abdominal pain - anemia DS: Discharge Diagnosis Discharge Diagnosis (1) Acute liver failure: Qualifiers: Hepatic coma status: without hepatic coma Qualified Code(s): K72.00 - Acute and subacute hepatic failure without coma Code(s): K72.00 - Acute and subacute hepatic failure without coma Status: Ruled-out (2) Acute renal failure: Qualifiers: Acute renal failure type: unspecified Qualified Code(s): N17.9 - Acute kidney failure, unspecified Code(s): N17.9 - Acute kidney failure, unspecified Status: Acute (3) Pneumonia: Code(s): J18.9 - Pneumonia, unspecified organism Status: Acute (4) Ascites: Code(s): R18.8 - Other ascites Status: Acute (5) Cirrhosis: Qualifiers: Hepatic cirrhosis type: alcoholic cirrhosis Ascites presence: with ascites Qualified Code(s): K70.31 - Alcoholic cirrhosis of liver with ascites Code(s): K74.60 - Unspecified cirrhosis of liver Status: Acute (6) Abdominal pain: Code(s): R10.9 - Unspecified abdominal pain Status: Acute (7) Melena: Code(s): K92.1 - Melena Status: Ruled-out (8) Personal history of malignant melanoma of skin: Code(s): Z85.820 - Personal history of malignant melanoma of skin Status: Acute (9) Thrombocytopenia: Code(s): D69.6 - Thrombocytopenia, unspecified Status: Acute (10) Anemia: Code(s): D64.9 - Anemia, unspecified Status: Acute DS: Summary Hospital Course Reason for hospitalization: - cirrhosis - ascites - acute renal failure - acute liver failure - pneumonia - abdominal pain - anemia Hospital Course: Patient is a 65-year-old male with past medical history of hypertension who presented to the emergency department with complaints of abdominal distention, jaundice, cough, nausea. In ED, WBC 13.6, hemoglobin 11.3, sodium 130, BUN 45, creatinine 3.82. CT abdomen/pelvis with multifocal bilateral pneumonia, colitis, cirrhosis, hepatosplenomegaly, decompensated portal hypertension and moderate volume ascites. The patient was admitted for further evaluation and management. In regards to cirrhosis, this is a relatively new diagnosis. Patient was seen at [facility] GI/hepatology February 01 at which time he had a FibroScan consistent with advanced cirrhosis. Initial t bili 10.1, AST 62, ALT 26, alk phos 177, INR 1.9. MELD 34. CT A/P with cirrhosis with hepatosplenomegaly and decompensated portal hypertension. Moderate volume ascites. MRCP with cirrhosis without masses or nodule, secondary portal venous hypertension with splenomegaly, diffuse soft tissue edema and moderate amount of ascites , hepatic colopathy. S/p paracentesis 05/17 with 2350 cc fluid removed. Repeat 05/19 with 3400 cc removed. Fluid analysis not consistent with SBP. Liver enzymes trended down. GI followed and given improvement in renal function, recommended starting Lasix 40mg and Aldactone 100 mg. Patient was instructed to stop his diltiazem and indapamide which he was taking purely for hypertension. Use instructed to take his blood pressure 1 to 2 times daily and keep a log. He will notify GI his blood pressures are running low. Plan is for patient to follow-up with Dr. Juarez locally and referral sent back to discuss transplant and/or tips procedure. Patient remained alert and oriented x4 during his stay. He will obtain repeat lab work in 5-7 days. In regards to acute renal failure, admit Cr 3.82. Cr was 0.7 09/2020. This was likely prerenal in setting of cirrhosis, dehydration as patient reports poor PO intake x1 week. Renal US with no hydronephrosis. S/p IV fluids and albumin. PO intake improved. Cr trended down to 1.2 on day of discharge. Nephrology followed. He will obtain a repeat BMP in 5-7 days and follow-up with PCP. In regards to pneumonia, CT A/P showed multifocal opacities. Patient complained of a cough and SOB. Patient remained afebrile. Initial WBC 11.8, improved. While admitted, he was managed with IV Rocephin and azithromycin. He will transition to Augmentin to complete a 5 day course on discharge. Symptoms significantly improved on discharge. In regards to anemia and thrombocytopenia, this is likely secondary to cirrhosis. Patient reported dark/tarry stools, initially loose stool, now more formed Hgb 11.3 on admission, trended down to 8.6. Could be hemodilutional due to IV fluids superimposed on cirrhosis. CT A/P with colitis - portal hypertensive versus infectious/inflammatory GI following and completed guaiac stool which was negative. Stopped IV Protonix. Patient's Hgb and Plts stable on discharge without signs of bleeding. He will monitor for signs of bleeding at home and have a repeat CBC in 5-7 days. Patient was discharged home in stable condition. Strict return precautions and side effects of medications discussed. Status at Discharge Functional status at discharge: independent ambulation Overall status at discharge: patient is back to baseline Time Spent with Patient Time attestation: Total time spent providing and/or coordinating discharge services: Time spent: Greater than 30 minutes Exam Narrative: General: NAD Eyes: EOMI ENT: neck supple, scleral icterus Cardiovascular: Regular rate and rhythm Respiratory: Clear to auscultation, respirations even and unlabored on RA Gastrointestinal: soft, nontender Genitourinary: no suprapubic tenderness Musculoskeletal: No edema Skin: warm, dry Neuro: Alert and oriented x4. Psych: Mood appropriate DS: Data Data Completed and Pending Completed studies during hospitalization: ITS Impressions Abdomen/Pelvis CT 05/15/25 13:33 IMPRESSION: 1. Multifocal bilateral pneumonia, with small pleural effusions. 2. Colitis. Portal hypertensive versus infectious/inflammatory. 3. Cirrhosis. Hepatosplenomegaly. Decompensated portal hypertension. 4. Distended gallbladder. If concern for cholecystitis, recommend ultrasound and/or HIDA scan. 5. No hydronephrosis. 6. Moderate volume ascites. Upper Quadrant Ultrasound 05/15/25 15:25 Impression: Cirrhotic disease of the liver with underlying liver lesion suspected. Contrast- enhanced MRI recommended Abdomen MRI 05/16/25 13:31 IMPRESSION: 1. Cirrhosis without evident hepatic nodules or masses. Sensitivity is mildly decreased in the absence of intravenous contrast. If there is continued clinical concern could consider follow-up postcontrast imaging when patient's significant acute renal insufficiency improves. 2. Secondary portal venous hypertension with splenomegaly and recanalized umbilical vein with periumbilical varices. 3. Cholelithiasis with no intra or extrahepatic biliary ductal dilation. The associated mild gallbladder wall thickening is likely related to liver disease with no frances dilation of the gallbladder or sonographic Christy's sign on ultrasound study from one day prior to suggest acute cholecystitis. 4. Pneumonia in the lingula with very small bilateral pleural effusions. 5. Cardiomegaly. 6. Diffuse soft tissue edema and moderate amount of ascites in the abdomen and pelvis. 7. Edematous wall thickening of the proximal colon most likely related to hepatic colopathy with differential including colitis which could be infectious, inflammatory or less likely ischemic in etiology. Paracentesis Ultrasound 05/16/25 14:14 IMPRESSION: 1. Successful ultrasound-guided paracentesis yielding 2350 mL of straw-colored fluid. Renal Ultrasound 05/16/25 14:17 IMPRESSION: 1. Normal kidneys without hydronephrosis. 2. Moderate amount of ascites. Chest X-Ray 05/16/25 14:36 Impression: Bilateral pneumonia Paracentesis Ultrasound 05/19/25 14:01 IMPRESSION: 1. Successful ultrasound-guided paracentesis yielding 3400 mL of clear yellow fluid. Pending at discharge Pending studies at discharge: 05/16/25 13:15 Cytology [PTH] Routine Labs on day of discharge: Labs from last 24 hours 05/20/25 05/20/25 05/19/25 10:33 04:34 15:49 WBC 4.9 RBC 2.05 L Hgb 7.8 L 7.8 L Hct 23.8 L 24.1 L MCV 117.6 H MCH 38.0 H MCHC 32.4 RDW 15.7 H Plt Count 99 L MPV 10.5 H Immature Gran % (Auto) 0.6 H Neut % (Auto) 56.7 Lymph % (Auto) 25.1 Dougherty % (Auto) 14.3 H Eos % (Auto) 2.9 Baso % (Auto) 0.4 Lymph # (Auto) 1.23 Dougherty # (Auto) 0.7 H Eos # (Auto) 0.1 Baso # (Auto) 0.0 Abs Immat Gran (auto) 0.03 Absolute Neuts (auto) 2.8 Absolute Nucleated RBC 0.000 Band Neutrophils % Not Reportable Nucleated RBC % 0.0 Platelet Estimate Decreased % Immature Plt Fraction 2.9 Hypochromasia 1+ Anisocytosis 1+ Macrocytosis 1+ Ovalocytes 1+ Schistocytes Rare PT 25.3 H INR 2.4 Sodium 139 Potassium 5.0 Chloride 104 Carbon Dioxide 27 Anion Gap 8 BUN 32 H Creatinine 1.28 Estim Creat Clear Calc 55 Estimated GFR 57 L Glucose 113 H Calcium 9.0 Total Bilirubin 5.6 H AST 51 ALT 23 Alkaline Phosphatase 123 Total Protein 6.3 Albumin 3.3 L Cryoglobulin Qualit Pending 05/19/25 05/17/25 11:17 05:25 WBC RBC Hgb 8.4 L Hct 26.0 L MCV MCH MCHC RDW Plt Count MPV Immature Gran % (Auto) Neut % (Auto) Lymph % (Auto) Dougherty % (Auto) Eos % (Auto) Baso % (Auto) Lymph # (Auto) Dougherty # (Auto) Eos # (Auto) Baso # (Auto) Abs Immat Gran (auto) Absolute Neuts (auto) Absolute Nucleated RBC Band Neutrophils % Nucleated RBC % Platelet Estimate % Immature Plt Fraction Hypochromasia Anisocytosis Macrocytosis Ovalocytes Schistocytes PT INR Sodium Potassium Chloride Carbon Dioxide Anion Gap BUN Creatinine Estim Creat Clear Calc Estimated GFR Glucose Calcium Total Bilirubin AST ALT Alkaline Phosphatase Total Protein Albumin Cryoglobulin Qualit Cancelled Preliminary micro results at discharge 05/16/25 02:23 Blood Culture - Preliminary Blood 05/16/25 02:23 Blood Culture - Preliminary Blood 05/15/25 15:27 Blood Culture - Preliminary Blood 05/15/25 15:27 Blood Culture - Preliminary Blood Discharge Plan Discharge Attending physician on discharge: Blake Green Consulting providers: Brooklynn Brannon; Kyle Cui Discharging Clinician: Brooklynn Brannon Anticipated Discharge Date/Time: 05/20/25 10:54 Patient Disposition: Home Activity: as tolerated Diet: regular, low sodium and other - see discharge instructions Discharge Instructions: Take all medications as prescribed. Finish antibiotics if prescribed, even if you are feeling better. You have been started on Lasix (furosemide) and Aldactone (spironolactone). These are diuretics to help with fluid retention. STOP taking diltiazem and indapamide since we have started new diuretics. Check your blood pressure twice daily and keep log. Check your blood pressure in the AM prior taking the diuretics and do not take them if your systolic blood pressure (top number) is less than 100. If you experience lightheadedness or dizziness or persistently low blood pressures, call Dr. Juarez's office to consider a change in your medications. Follow-up with your primary care doctor in 5-7 days. Have lab work repeated prior to this visit. Talk to your primary care doctor about being cleared for work. Dr. Juarez's office should be sending a referral back to [facility] gastroenterology. If you do not hear from this week, call Dr. Juarez's office. Avoid all alcohol. Follow-up with your primary care provider in one week. Return to the emergency department if you develop chest pain, shortness of breath, persistent fever >100.4, confusion, loss of consciousness, dark/tarry stools or blood in the stool. Patient Instructions: Antibiotic Form, Spironolactone (By mouth), Furosemide (By mouth) Patient Language: Danish Stand Alone Forms: General Discharge Information, Work/School Release IP Follow-up/Referrals: Terrell Pillai MD [Primary Care Provider, Family Practice] - Call for Appointment Referral Note: 5-7 days Gaetano Juarez MD [Physician, Gastroenterology] - Call for Appointment Referral Note: follow-up in 2 weeks from hospitalization. Discharge Medications: New amoxicillin-pot clavulanate 875-125 mg tablet 1 tablet PO Q12H Qty: 4 0RF furosemide [Lasix] 40 mg tablet 40 mg PO DAILY Qty: 30 0RF spironolactone [Aldactone] 100 mg tablet 100 mg PO DAILY Qty: 30 0RF albuterol sulfate [Ventolin HFA] 90 mcg/actuation HFA aerosol inhaler 1 inh inhalation QID PRN (Reason: shortness of breath or wheezing) Qty: 6.7 0RF Continued milk thistle 500 mg capsule 500 mg PO DAILY Rx Instructions: give with meal/snack omeprazole magnesium [Prilosec OTC] 20 mg tablet,delayed release (DR/EC) 20 mg PO DAILY sildenafil [Viagra] 100 mg tablet 100 mg PO DAILY PRN (Reason: sexual activity) Qty: 30 1RF Rx Instructions: administer 30 minutes to 4 hours before activity Discontinued indapamide 2.5 mg tablet 2.5 mg PO DAILY diltiazem HCl 240 mg capsule,extended release 24 hr 240 mg PO BID Qty: 180 1RF Other Ambulatory Orders: Basic Metabolic Panel (Routine) Timeframe: 5 Days Location: Determined by Patient Ordered By: Brooklynn Brannon Complete Blood Count with Diff (Routine) Timeframe: 5 Days Location: Determined by Patient Ordered By: Brooklynn Brannon Date of admission: 05/16/25 10:02 Primary Care Provider: Lopatin,Terrell D. Admitting Provider: Anna Naik Attending physician on admission: Anna Naik Condition: Stable
== END 2025-05-20 12:25 | disposition home or self-care (01) | DRG 432 ==
LOC: ANHED 11:44 → ANH2MED 17:33
PROVIDERS: Internal Medicine Nephrology; Nurse Practitioner; Nurse Practitioner Family; Admitting Provider Internal Medicine; Emergency Provider Physician Assistant; PCP Family Medicine; Visit Provider Physician Assistant
DX: K70.40 Alcoholic hepatic failure without coma (principal); J18.9 Pneumonia, unspecified organism; N17.9 Acute kidney failure, unspecified; K92.1 Melena; E87.1 Hypo-osmolality and hyponatremia; K70.31 Alcoholic cirrhosis of liver with ascites; K76.0 Fatty (change of) liver, not elsewhere classified; E88.09 Other disorders of plasma-protein metabolism, not elsewhere classified; D69.6 Thrombocytopenia, unspecified; D53.9 Nutritional anemia, unspecified; I10 Essential (primary) hypertension; I25.10 Atherosclerotic heart disease of native coronary artery without angina pectoris; F10.10 Alcohol abuse, uncomplicated; Z20.822 Contact with and (suspected) exposure to COVID-19; Z85.820 Personal history of malignant melanoma of skin
CPT/HCPCS: 36415; 49083; 71046; 74176; 74181; 76705; 76770; 80048; 80053; 80074; 81001; 82042; 82077; 82105; 82140; 82150; 82248; 82550; 82570; 82595; 82607; 82746; 82945; 83615; 83690; 84156; 84157; 84300; 84540; 85014; 85018; 85025; 85027; 85055; 85610; 85730; 85999; 87040; 87070; 87075; 87081; 87205; 87449; 87637; 88108; 88305; 88342; 89051; 94640; 96365; 96366; 96367; 99285; A9270; G0378; J0456; J0696; J7030; J7050; P9047

== ENCOUNTER 2025-05-30 11:25 | Outpatient (CLI) | payer OTHER, SELFPAY ==
--- NOTE | ~2025-05-30 | US_ITS ---
EXAMINATION: US soft tissue groin RT, 05/30/2025 11:26 CDT HISTORY: R19.09 - Other intra-abdominal and pelvic swelling, mass ... Comparison: None Technique: Mcneal-scale and color Doppler images were obtained. Findings: Correlating with the palpable area within the inguinal canal there is a hernia identified containing bowel, the defect in the abdominal wall measures 1.2 cm, the hernia maximally measures 3.7 x 1.1 cm with little change in Valsalva. IMPRESSION: Hernia detailed above. CT of the pelvis recommended Reviewed, dictated and finalized at location P.
== END 2025-05-30 11:26 | disposition home or self-care (01) ==
LOC: MICIMG 11:25
PROVIDERS: PCP Family Medicine
DX: R19.09 Other intra-abdominal and pelvic swelling, mass and lump (principal)
CPT/HCPCS: 76882

== ENCOUNTER 2025-06-06 11:21 | Outpatient (CLI) | payer OTHER, SELFPAY ==
--- NOTE | ~2025-06-06 | CT_ITS ---
EXAM/PROCEDURE: CT pelvis wo con HISTORY: Abdominal hernia without obstruction COMPARISON: May 15, 2025 TECHNIQUE: Pelvic CT without contrast FINDINGS: The visualized bowel gas pattern is nonobstructive with no free air free fluid or pneumatosis seen. No gross inflammatory. Moderate to large amount of stool extends to the cecum. Visualized aorta normal in size. Small omentum containing bilateral inguinal hernias, decreased in size compared to the previous study. Ascites has resolved since the previous exam. Degenerative changes throughout the bones. No bulky lymphadenopathy or obvious masses seen. IMPRESSION: Directed noncontrast exam of the pelvis only with no large herniation seen. Small inguinal hernias are present with no herniated loops of bowel. The hernias are decreased in size since the previous exam and there is been interval resolution of extensive ascites present on that exam. Reviewed, dictated and finalized at location A. SSES COLORING OPERATOR IMPRESSION: Directed noncontrast exam of the pelvis only with no large herniation seen. Sma ll inguinal hernias are present with no herniated loops of bowel. The hernias a re decreased in size since the previous exam and there is been interval resolut ion of extensive ascites present on that exam.
== END 2025-06-06 11:22 | disposition home or self-care (01) ==
LOC: MICIMG 11:22
PROVIDERS: PCP Family Medicine
DX: K46.9 Unspecified abdominal hernia without obstruction or gangrene (principal)
CPT/HCPCS: 72192

== ENCOUNTER 2025-07-05 10:01 | Outpatient (CLI) | payer OTHER, SELFPAY ==
--- OUTSIDE RECORDS SUMMARY | 2025-07-05 10:06 | XMS_ITS | Clinical Summary ---
Author Organization [facility] Address [address] [place] [address] Care Team Providers Care Cash Processing Specialist Name Role Phone Terrell Pillai MD Primary Care Provider [phone] Alfie Bashir MD Unavailable [phone] Allergies No known active allergies Medications [...] Encounters Date Type Department Care Team Description 05/27/2025 Telephone [facility] Medicine Oncology [address] [place] [address] [address] [place] [address] [place] CMA 05/27/2025 Telephone [facility] Medicine Oncology [address] [place] [address] [address] [place] [address] [place] CMA 05/12/2025 Telephone [facility] [address] [facility] Medical Office Building [address] [place] [id number] Chad Price, Katya from Last 3 Months Surgical History Surgery [...] on file 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 Does NOT exclude the possibility of recent exposure to HCV. Blood 07/09/2021 12:0 4 PM VALUE ENGINEER 07/09/2021 12:40 PM VALUE ENGINEER us Notinfile Unknown LAB MICROBIOLOGY - GENERAL ORD ERABLES Edited Result - Final [facility] Department [place] [address] from Last 3 Months or Most Recently Relevant to Health Maintenance Insurance [facility] Care Teams Cash Processing Specialist Relationship Specialty Start Date End Date Terrell Pillai MD [address] [place] [id number] PCP - General Family Medicine 06/08/21 Alfie Bashir MD [address] [place] [address] Medical Oncologist/Conflict Resolution Professional Medical Oncology 11/25/24
--- OUTSIDE RECORDS SUMMARY | 2025-07-05 10:06 | XMS_ITS | Encounter Summary ---
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
--- OUTSIDE RECORDS SUMMARY | 2025-07-05 10:06 | XMS_ITS | Encounter Summary ---
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
--- OUTSIDE RECORDS SUMMARY | 2025-07-05 10:06 | XMS_ITS | Clinical Summary ---
Author Organization [facility] [employer] Address [address] [place] [address] Care Team Providers Care Animal Science Instructor Name Role Phone Vladimir Villela MD Primary Care Provider [phone] Source Comments [facility],non-owned Affiliates and Associated Physician Practices is amultiple site organization consisting of ambulatory clinics and hospital sitesin [place], [place], [place] and [place]. This disclosure is being madepursuant to the Care Everywhere program and may not contain all information available regarding this patient. 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 Not on file No t on file Not on file Not on file Not on file Not on file Last Filed Vital Signs Vital Sign Reading Time Taken Comments Blood Pressure 145/98 08/19/2011 11:19 AM MIGRATORY GAME BIRD BIOLOGIST Pulse 84 08/19/2011 11:19 AM MIGRATORY GAME BIRD BIOLOGIST Temperature - - Respiratory Rate 16 08/19/2011 10:57 AM MIGRATORY GAME BIRD BIOLOGIST Oxygen Saturation - - Inhaled Oxygen Concentration - - Weight 88.2 kg (194 lb 6 oz) 08/19/2011 10:57 AM MIGRATORY GAME BIRD BIOLOGIST Height 179.1 cm (5' 10.5) 08/19/2011 10:[address] Body Mass Index 27.5 08/19/2011 10:57 AM MIGRATORY GAME BIRD BIOLOGIST Plan of Treatment Upcoming Encounters Date Type Department Care Team (Late st Contact Info) Description 08/27/2025 8:00 AM MIGRATORY GAME BIRD BIOLOGIST Office Visit [facility] - GI [address], [place] [address] Health Maintenance Due Date Last Done Comments COLOGUARD (AGES 45-75) - COL ON CA SCREENING [...] DEPRESSION SCREENING 07/31/2024 COVID-19 VACCINE (1 - 2024-2 6 season) 2025 INFLUENZA VACCINE (#1) 2025 Respiratory [...] 200 mg/dL [facility] Comment: Test Performed at: [facility] [address] [place] [address] KINGSLEY HASTINGS DO,MPH HDL Cholesterol 52 > OR = 40 mg/dL [facility] Triglycerides 119 <150 mg/dL [facility] LDL Calculated 102 <130 mg/dL (calc) [facility] Comment: Desirable range <100 mg/dL for patients with CHD or diabetes and <70 mg/dL for diabetic patients with known heart disease. CHOL/HDLC RATIO 3.4 < OR = 5.0 (calc) [facility] 04/27/2010 8:48 AM CDT 04/28/2010 1:36 AM CDT Ramesh Lacy MD LAB - CHEMISTRY ORDERABLES F inal Result [facility] [address] [place] [address] from Last 3 Months or Most Recently Relevant to Health Maintenance Insurance [facility] Address: [address] [address] Care Teams Animal Science Instructor Relationship Specialty Start Date End Date Vladimir Villela MD [address] [place] [phone] PCP - General Internal Medicine 08/19/11
--- OUTSIDE RECORDS SUMMARY | 2025-07-05 10:06 | XMS_ITS | Clinical Summary ---
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 Gender Identity Not on file Sexual Orientation [...] of 2) 02/21/2012 COVID-19 Vaccine ( - 2024-2 6 season) 2025 Influenza Adult (#1) 2025 RSV Immunization or 60+ Years (1 - 1-dose 75+ series) 2037 Hepatitis A Vaccines Aged Out No long er eligible based on patient's age to complete this topic Meningococcal B Vaccine Aged Out No l onger eligible based on patient's age to complete this topic Meningococcal Vaccine Aged Out No laurence ra eligible based on patient's age to complete this topic RSV Immunizations Under 20 Months Aged Out No longer eligible based on patient's age to complete this topic
--- OUTSIDE RECORDS SUMMARY | 2025-07-05 10:06 | XMS_ITS | Encounter Summary ---
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 Gender Identity Not on file Sexual Orientation Not on file documented as of this encounter Functional Status documented as of this encounter Plan of Treatment Not on file documented as of this encounter Procedures Procedure Name Priority Date/Time Associated Diagnosis Comments SCAN - PATHOLOGY 05/28/2024 documented in this encounter Results * SCAN - PATHOLOGY (05/28/2024) us Provider Scanning Final Result documented in this encounter Visit Diagnoses Not on filedocumented in this encounter Care Teams Yarn Texturing Machine Operator Relationship Specialty Start Date End Date Terrell Pillai MD [address] [place] [address] PCP - General Family Medicine 06/08/21 Alfie Bashir MD [address] [place] [address] Medical Oncologist/Power Plant Engineer Medical Oncology 11/25/24 documented as of this encounter
--- NOTE | 2025-07-05 10:40 | ECG_ITS ---
Test Date: 2025-07-05 10:51:05 Measurements Intervals Fine Rate: 80 P: 30 MD: 151 QRS: -2 QRSD: 105 T: 3 QT: 434 QTc: 503 Interpretive Statements SINUS RHYTHM POSSIBLE LEFT ATRIAL ENLARGEMENT BORDERLINE ST-T WAVE ABNORMALITY- INFERIOR LEADS PROLONGED QT INTERVAL BASELINE ARTIFACT- V1, V3 ABNORMAL ECG No previous ECG available for comparison Electronically Signed On 07-05-2025 15:56:34 TIMBER MANAGEMENT ASSISTANT by Eric Mcghee D.O.
[2025-07-05 10:51] LABS: Hematocrit 26.0 % (42.0-52.0); Hemoglobin 8.9 g/dL (14.0-18.0); Immature Granulocyte Percent A 0.6 % (0-0.5); Immature Platelet Fraction Pct 2.7 % (0.9-11.2); Lymphocytes Absolute Auto 1.16 K/mm3 (0.9-3.2); Mean Corpuscular HGB Conc 34.2 g/dl (32-36); Mean Corpuscular Hemoglobin 38.2 pg (26-34); Mean Corpuscular Volume 111.6 fl (80-100); Nucleated Red Blood Cells Absolute Auto 0.000 K/mm3 (0.0-0.012); Nucleated Red Blood Cells Perc 0.0 % (0.0-0.2); Platelet Count Result 87 k/mm3 (150-375); Red Blood Count 2.33 M/mm3 (4.6-6.20); White Blood Count 3.6 K/mm3 (4.5-10.0)
[2025-07-05 11:09] LABS: Anion Gap 3 mmol/L (4-12); Blood Urea Nitrogen 12 mg/dL (9-20); Calcium 8.3 mg/dL (8.4-10.2); Carbon Dioxide 23 mmol/L (22-30); Chloride 110 mmol/L (98-107); Estimated Glomerular Filt Rate > 60; Glucose 106 mg/dL (65-110); Potassium 3.8 mmol/L (3.4-5.0); Sodium 136 mmol/L (137-145)
[2025-07-05 11:22] LABS: Macrocytosis 1+ (NORMAL)
[2025-07-05 11:23] LABS: Ovalocytes Occasional; Schistocytes Rare
[2025-07-05 11:24] LABS: Burr Cells 1+
== END 2025-07-05 10:02 | disposition home or self-care (01) ==
LOC: ANHLAB 10:03
PROVIDERS: Physician Assistant; PCP Family Medicine; Visit Provider Anesthesiology
DX: K40.20 Bilateral inguinal hernia, without obstruction or gangrene, not specified as recurrent (principal); D64.9 Anemia, unspecified; I10 Essential (primary) hypertension; N17.9 Acute kidney failure, unspecified
CPT/HCPCS: 36415; 80048; 85025; 85055; 86850; 86900; 86901; 93005

== ENCOUNTER 2025-07-07 01:26 | Day surgery (SDC) | payer OTHER, SELFPAY ==
[2025-07-04 08:46] VITALS: BMI 25.2
--- NOTE | 2025-07-04 08:55 | PC.NURSE ---
[facility] has started construction of its new state of the art ER which will open Spring 2026. With this, we anticipate parking may be a challenge for some our surgical patients and families. Parking spaces are limited but are available for all Surgical, obstetrics, and ER patients sharing this lot. If you arrive and find you are having a hard time finding a parking space, please note that we understand the challenges, please drive around the hospital and park near Hospital Entrance 1. When you enter this entrance, you can ask a volunteer to direct or take you back to the surgical waiting area to check in. We appreciate everyone?s understanding of these expected challenges while we build for your future. Report to the Outpatient Waiting Room, entrance under the green pavilion located off [address], at time _1230_ on date _07/07/25_. Planned Procedure Time: _1430_.? Time changes happen often and if your time is changed the preop area will call you the afternoon before. - You and your visitor will be asked to self-screen and do not enter if you have any COVID symptoms. Please call surgeon if you need to reschedule. - A mask is optional within the hospital at this time. Patients may have clear liquids (water, carbonated beverages, clear teas, apple juice) until 3 hours prior to surgery with a maximum of 20 ounces. - No food from midnight until time of surgery and no smoking, or chewing tobacco (or any form of nicotine). No chewing gum, candy or mints. Take only the following medications with a SIP of water on the morning of surgery: ____NONE DO NOT STOP ANY OF YOUR OTHER PRESCRIPTION MEDICATIONS PRIOR TO SURGERY EXCEPT THE FOLLOWING Hold all vitamins and supplements for 3 days per anesthesiologist. Medications to discontinue per physician Date to take last dose Please no make-up, nail upper sorbian, hairspray, perfume, deodorant, or body powder the day of surgery.? No jewelry (including any body piercings) or valuables the day of surgery, leave them at home.? Please take a shower or bath the night before, or the morning of, surgery with HIBICLENS antibacterial soap.? Wear comfortable, loose fitting clothing.? Children are encouraged to wear pajamas. - Jewelry must be removed prior to entering the operating room.? Rings and piercings that are not removed may be cut off. - The hospital will not accept responsibility for valuables.? - Please leave all valuables, including medications, at home the day of surgery. If you are going home after surgery, a licensed diesel truck driver must drive you home.? - NO public transportation without another adult if you receive anesthesia. - We recommend that an adult stay with you for 24 hours following discharge. - We also recommend that you do not drive, make important decision, drink alcoholic beverages, or take any drugs that were not prescribed by your health care provider for at least 24 hours after your discharge time. For Pediatric surgeries, we recommend two adults accompany the child home. Follow any additional instructions given to you from your surgeon. Telephone instructions given to __PATIENT and asked if any additional questions and then verbalized understanding. Patient advised to call surgeon office or pre surgery nurse liaison [phone] if any additional questions.
[2025-07-07] VITALS (12 sets, daily range): BP systolic 96–123; BP diastolic 38–68; PULSE 69–86; RESP 10–16; TEMP 36.6–36.8; O2SAT 94–100; BMI 25.2
--- OUTSIDE RECORDS SUMMARY | 2025-07-07 01:28 | XMS_ITS | Encounter Summary ---
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
--- OUTSIDE RECORDS SUMMARY | 2025-07-07 01:28 | XMS_ITS | Encounter Summary ---
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
--- OUTSIDE RECORDS SUMMARY | 2025-07-07 01:28 | XMS_ITS | Clinical Summary ---
Author Organization [facility] Address [address] [place] [address] Care Team Providers Care Creative Developer Name Role Phone Terrell Pillai MD Primary Care Provider [phone] Alfie Bashir MD Unavailable [phone] Allergies No known active allergies Medications [...] Type Department Care Team Description 05/27/2025 Telephone [facility] Medicine Oncology [address] [place] [address] [address] [place] [address] [place] CMA 05/27/2025 Telephone [facility] Medicine Oncology [address] [place] [address] [address] [place] [address] [place] CMA 05/12/2025 Telephone [facility] Cardiology [address] [facility] [address] [place] [address] Chad Price, Katya from Last 3 Months [...] on file Legal Sex Male 7:33 PM MEDICATION AID Gender Identity Not on file Sexual Orientation [...] HEPATITIS C ANTIBODY Routine 07/09/2021 12:04 PM MEDICATION AID from Last 3 Months or Most Recently Relevant to Health Maintenance Results * Hepatitis C antibody (07/09/2021 12:04 PM MEDICATION AID) Hep C Ab Nonreactive Nonreactive [facility] Comment:Antibodies to HCV no t detected. Does NOT exclude the possibility of recent exposure to HCV. Blood 07/09/2021 12:0 4 PM MEDICATION AID 07/09/2021 12:40 PM MEDICATION AID us Notinfile Unknown LAB MICROBIOLOGY - GENERAL ORD ERABLES Edited Result - Final [facility] [place] [address] from Last 3 Months or Most Recently Relevant to Health Maintenance Insurance [facility] Care Teams Creative Developer Relationship Specialty Start Date End Date Terrell Pillai MD [address] [place] [address] PCP - General Family Medicine 06/08/21 Alfie Bashir MD [address] [place] [address] Medical Oncologist/Level Vial Sealer Medical Oncology 11/25/24
--- OUTSIDE RECORDS SUMMARY | 2025-07-07 01:29 | XMS_ITS | Clinical Summary ---
Author Organization [facility] [email or web address] Address [address] [place] [address] Care Team Providers Care Delicatessen Store Manager Name Role Phone Vladimir Villela MD Primary Care Provider [phone] Source Comments [employer],non-owned Affiliates and Associated Physician Practices is amultiple site organization consisting of ambulatory clinics and hospital sitesin [place], [place], [place] and [place]. This disclosure is being madepursuant to the Care Everywhere program and may not contain all information available regarding this patient. 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 file No t on file Not on file Not on file Not on file Not on file Last Filed Vital Signs Vital Sign Reading Time Taken Comments Blood Pressure 145/98 08/19/2011 11:19 AM FABRIC LAY OUT WORKER Pulse 84 08/19/2011 11:19 AM FABRIC LAY OUT WORKER Temperature - - Respiratory Rate 16 08/19/2011 10:57 AM FABRIC LAY OUT WORKER Oxygen Saturation - - Inhaled Oxygen Concentration - - Weight 88.2 kg (194 lb 6 oz) 08/19/2011 10:57 AM FABRIC LAY OUT WORKER Height 179.1 cm (5' 10.5) 08/19/2011 10:[address] Body Mass Index 27.5 08/19/2011 10:57 AM FABRIC LAY OUT WORKER Plan of Treatment Upcoming Encounters Date Type Department Care Team (Late st Contact Info) Description 08/27/2025 8:00 AM FABRIC LAY OUT WORKER Office Visit [facility] - GI [address], [place] [address] Health Maintenance Due Date Last Done Comments [...] Comment: Test Performed at: [facility] [address] [place] [address] KINGSLEY HASTINGS DO,MPH HDL Cholesterol 52 > [...] - CHEMISTRY ORDERABLES F inal Result [facility] [address] [place] [address] from Last 3 Months or Most Recently Relevant to Health Maintenance Insurance Care Teams Delicatessen Store Manager Relationship Specialty Start Date End Date Vladimir Villela MD [address] [place] [phone] PCP - General Internal Medicine 08/19/11
--- OUTSIDE RECORDS SUMMARY | 2025-07-07 01:29 | XMS_ITS | Encounter Summary ---
Author Organization [facility] [employer] [facility] Address [address] [place] [address] Phone Care Team Providers Care Bd Special Education Teacher Name Role Phone Terrell Pillai MD Primary Care Provider [phone] Alfie Bashir MD Unavailable [phone] Encounter Details Date Type Department Care [...] on file Legal Sex Male 7:33 PM COMMODITIES BROKER Gender Identity Not on file Sexual Orientation [...] on filedocumented in this encounter Care Teams Bd Special Education Teacher Relationship Specialty Start Date End Date Terrell Pillai MD [address] [place] [address] PCP - General Family Medicine 06/08/21 Alfie Bashir MD [address] [place] [address] Medical Oncologist/Field Artillery Fire Control Man Medical Oncology 11/25/24 documented as of this encounter
--- OUTSIDE RECORDS SUMMARY | 2025-07-07 01:29 | XMS_ITS | Encounter Summary ---
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
--- OUTSIDE RECORDS SUMMARY | 2025-07-07 01:29 | XMS_ITS | Clinical Summary ---
Author Organization [facility] Address [address] [place] [address] Care Team Providers Care Spinner Fixer Name Role Phone Unavailable Primary Care Provider Unavailabl e Social History Tobacco Use Types Packs/Day Years Used Date Smoking Tobacco: Never Assessed Sex and Gender Information Value Date Recorded Sex Assigned at Not on file Legal Sex Male 5:59 PM KEG VARNISHER Gender Identity Not on file Sexual Orientation [...]
[2025-07-07] MEDS: ACETAMINOPHEN 500 MG TABLET 1000 MG PO (13:46)
[2025-07-07] MEDS: KETOROLAC 15 MG/ML VIAL (*BKC) IV PUSH (13:46)
--- NOTE | 2025-07-07 15:12 | WPDHPUPDATE1 ---
History and Physical Update Update Date/Time: 07/07/25 15:12 History and Physical has been reviewed, including an updated exam of the patient. There are NO changes in the patient's condition. Risks, benefits, and alternatives have been discussed and questions answered. Patient agrees to proceed with procedure.
--- NOTE | 2025-07-07 15:13 | WPDANESEPPF ---
Anes - Initial Pre Proc Eval Procedure: Operation Date: 07/07/25 14:30 Proposed Procedures p Robotic Bilateral Inguinal Hernia Repair with Mesh - Lilia Goodrich MD Date/Time: 07/07/25 15:13 Surgeon: Lilia Goodrich MD Pre Op Diagnosis: bilateral inguinal hernia Patient Data Age: 65 Gender: M Height: 1.78 m Weight: 80 kg Last Vital Signs Temp 36.6 C 07/07/25 12:30 Pulse 84 07/07/25 12:30 Resp 16 07/07/25 12:30 BP 123/63 07/07/25 12:30 Pulse Ox 100 07/07/25 12:30 O2 Del Method Room Air 07/07/25 12:30 Allergies Allergy/AdvReac Type Severity Reaction Status Date / Time No Known Allergies Allergy Verified 07/07/25 14:07 Home Medications ?Medication ?Instructions ?Recorded ?Confirmed ?Type milk thistle 500 mg capsule 500 mg PO DAILY 11/18/22 07/07/25 History sildenafil 100 mg tablet (Viagra) 100 mg PO DAILY PRN sexual 09/18/24 07/04/25 Rx activity #30 tabs albuterol sulfate 90 mcg/actuation 1 inh inhalation QID PRN shortness 05/26/25 07/04/25 Rx aerosol inhaler (Ventolin HFA) of breath or wheezing #6.7 grams furosemide 40 mg tablet (Lasix) 40 mg PO DAILY #100 tabs 05/26/25 07/04/25 Rx spironolactone 100 mg tablet 100 mg PO DAILY #100 tabs 05/26/25 07/04/25 Rx (Aldactone) calcium carbonate-vitamin D3 1 tablet PO DAILY 07/04/25 07/07/25 History ferrous sulfate 325 mg (65 mg 325 mg PO DAILY 07/04/25 07/07/25 History iron) tablet (iron) vitamin B complex-vit B12 See Rx Instructions PO DAILY 07/04/25 07/07/25 History Patient hx anesthesia problems: post op nausea/vomiting Family hx anesthesia problems: none Results Review: All pre-operative results and documents have been reviewed as part of the pre-operative evaluation. [facility] Past Medical History Medical History Melanoma Atherosclerosis of coronary artery of [place] heart without angina pectoris Personal history of malignant melanoma of skin Alcohol use disorder, moderate, dependence Alcoholic hepatitis without ascites Hepatic steatosis Essential (primary) hypertension Surgical History Surgical History History of tonsillectomy History of melanoma excision 07/09/2021 History of sinus surgery 1995 Social History Social History Social History: The patient lives with his and has 1 daughter. He also has 4 step children. He stated that he quit drinking so months ago and only has an occasional drink. Code status: Full code Smoking status: Never smoker Smokeless tobacco user: chewing tobacco Second hand tobacco smoke exposure: No Additional smoking assessment comments: QUIT 20 YRS AGO Alcohol intake: former Drinks per week: 2 Substance use: never Substance use type: does not use Lack of Transportation: No Lack of Food: Never True Current Housing: I Have Housing Concerned About Future Housing: No Difficulty Paying Gas/Electric Bills: No Difficulty Paying for Meds: No Currently Unemployed: No Education: High School Diploma/GED Difficulty w/ Childcare or Family Care: No Living arrangements: with family Occupation/Education: occupation Gender identity (if verbalized by the patient): Male Sexual Orientation (if Verbalized by the Patient): Straight or Heterosexual Spiritual care concerns: No Anes - Eval Final PreProcedure Day of Procedure 07/07/25 15:13 Patient weight: normal Heart: regular rate and rhythm Lungs: clear to auscultation Airway: Mallampati scale class II Neurological: alert and oriented Last oral intake: >/= 8 hours ASA classification: III Emergent: no Anesthetic plan: proceed Anesthesia type and monitoring: general ETT and standard monitoring Results Review: All pre-operative results and documents have been reviewed as part of the pre-operative evaluation. Informed Consent: The patient's anesthetic plan and its attendant risks and benefits were discussed with the patient/family/POA. Questions were solicited and answers provided to the satisfaction of the patient/family/POA.
[2025-07-07] MEDS: ceFAZolin 2 GM in SODIUM CHLORIDE 0.9% IV 50 ML 100 ML IVPB (15:23)
[2025-07-07] MEDS: SCOPOLAMINE 1 MG PATCH 1 PATCH TRANSDERM (15:46)
[2025-07-07] MEDS: BUPIVACAINE/EPINEPHRINE 0.5% 50 ML VIAL 30 ML INFILTRATE (16:06)
--- NOTE | 2025-07-07 16:51 | P.OP_ITS ---
Procedure Note - Detailed Date of Procedure 07/07/25 Pre-op Diagnosis incarcerated right inguinal hernia, left inguinal hernia Post-op Diagnosis Same Procedure Performed laparoscopic paracentesis of 2.5 L ascites, robotic assisted incarcerated right inguinal hernia repair with mesh Surgeon Lilia Goodrich MD Anesthesia General and Local Indications 65-year-old male with multiple medical issues including alcoholic cirrhosis, pancytopenia presenting with incarcerated right inguinal hernia. Patient also noted to have left inguinal hernia. Findings Large amount of ascites within the abdomen requiring paracentesis, incarcerated right inguinal hernia, small left inguinal hernia Description of Procedure Patient was brought into the operating room and placed in the supine position. After adequate induction of general anesthesia, the patient was prepped and draped in normal sterile fashion. A time-out was then done to verify the patient's identity, as well as the procedure being performed. Began by making a 8 mm incision in the supraumbilical region, a Veress needle was then placed into the peritoneal cavity. CO2 gas was then insufflated and after adequate pneumoperitoneum was achieved, the Veress needle was removed. I then placed an 8 mm trocar through this incision. I then placed the endoscope through this trocar site and under direct visualization placed 2 further 8 mm ports in the right and left mid abdomen. At this point, a large amount of ascites was noted within the abdominal cavity. Given these findings, I was unable to proceed with the procedure without paracentesis. I did examine the liver and a picture was taken showing a very cirrhotic appearing. A 2.5 L paracentesis was done to allow exposure to the groin. The [employer] robot was then docked to the 3 trocar sites. I then scrubbed out and went to the robotic console. Upon examining the pelvis, it was noted that the patient had a incarcerated right inguinal hernia. The left side was examined and a small hernia defect was noted. I was able to reduce the incarcerated right inguinal hernia with gentle retraction out of the hernia. This was noted to be largely omentum and preperitoneal fat. Once this was done, I began by making a preperitoneal flap approximately 6 cm superior to the defect. This flap was carried medially past the umbilical ligaments in laterally to the transversalis. It then began dissection of my medial compartment taking this down to the pubic tubercle. I then began the lateral dissection taking this down to the transversalis fascia. Once these compartments were achieved, I began dissection around the cord structures. Using careful dissection, was able to reduce indirect hernia sac off the cord structures. Once this was adequately done, I went ahead and placed a large 3D m ax mesh into the abdominal cavity. The mesh was carefully positioned, centering the center of the mesh over the indirect defect. Once this was done, was very satisfied with our repair. I then closed the peritoneal flap with a running 2.0 V Lock suture. The decision was made to not proceed with bilateral repair given the ascites and pancytopenia. The abdomen was then desufflated, and all ports were removed. All incisions were then closed with the 4.0 monocryl suture. Dermabond was placed on each wound. The patient tolerated the procedure well, was extubated in the operating room postoperatively, and will now be transferred to the recovery room in stable condition. Implants Large right-sided 3D max mesh Estimated Blood Loss 5 Drains No Packing No Pathology None sent Complications No immediate complications Condition Stable Disposition PACU [facility] Billing Surgery - Charge Forward: Surgery Billing
[2025-07-07] MEDS: LACTATED RINGERS 1,000 ML 30 ML IV CONT ×3 (17:09→17:49)
[2025-07-07] MEDS: oxyCODONE HCL (*CRX) 5 MG TAB IR PO (18:48)
== END 2025-07-07 19:45 | disposition home or self-care (01) ==
PROVIDERS: PCP Family Medicine; Visit Provider Surgery
PROC: 8E0Y4CZ Robotic Assisted Procedure of Lower Extremity, Percutaneous Endoscopic Approach (ICD-10-PCS; CPT 49650; principal; 2025-07-07 14:30)
DX: K40.30 Unilateral inguinal hernia, with obstruction, without gangrene, not specified as recurrent (principal); K40.90 Unilateral inguinal hernia, without obstruction or gangrene, not specified as recurrent; K70.31 Alcoholic cirrhosis of liver with ascites; D61.818 Other pancytopenia; Z87.891 Personal history of nicotine dependence
CPT/HCPCS: 49650; 49322; S2900; J0690; A9270; C1781; J1885; J2250; J2270; J2405; J2704; J7120

== ENCOUNTER 2025-07-16 12:25 | Outpatient (CLI) | payer OTHER, SELFPAY ==
--- NOTE | ~2025-07-16 | US_ITS ---
EXAMINATION: US paracentesis abd w/image DATE: 07/16/2025 14:35 INDICATION: Alcoholic cirrhosis with ascites TECHNIQUE: The procedure and its risks and benefits were discussed with the patient. Potential risks discussed included bleeding and infection. The skin was prepped and draped in sterile fashion. 1% lidocaine was used for local anesthesia. Under ultrasound guidance, a 5 Fr catheter with trochar was advanced into the ascites in the left lower quadrant. Fluid was aspirated into vacuum bottles. The catheter was removed, and a dressing was applied. There were no immediate complications. FINDINGS: Ultrasound images demonstrate ascites and the catheter within the fluid. IMPRESSION: 1. Successful ultrasound-guided paracentesis yielding 250 mL of clear yellow fluid. Reviewed, dictated and finalized at location A. D SERVICES DIRECTOR IMPRESSION: 1. Successful ultrasound-guided paracentesis yielding 250 mL of clear yellow f luid.
[2025-07-16 12:57] LABS: Platelet Count Result 107 k/mm3 (150-375)
[2025-07-16 13:12] LABS: INR 1.6; Prothrombin Time 19.3 Seconds (11.1-14.7)
--- OUTSIDE RECORDS SUMMARY | 2025-07-16 14:16 | XMS_ITS | Encounter Summary ---
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
--- OUTSIDE RECORDS SUMMARY | 2025-07-16 14:16 | XMS_ITS | Encounter Summary ---
Author Organization [facility] Address [address] [place] [address] Phone Care Team Providers Care Co Op Name Role Phone Terrell Pillai MD Primary Care Provider [phone] Alfie Bashir MD Unavailable [phone] Encounter Details Date Type Department Care [...] on file Legal Sex Male 7:33 PM CLINICAL RESEARCH MONITOR Gender Identity Not on file Sexual Orientation [...] on filedocumented in this encounter Care Teams Co Op Relationship Specialty Start Date End Date Terrell Pillai MD [address] [place] [id number] PCP - General Family Medicine 06/08/21 Alfie Bashir MD [address] [place] [address] Medical Oncologist/Mobile Security Architect Medical Oncology 11/25/24 documented as of this encounter
--- OUTSIDE RECORDS SUMMARY | 2025-07-16 14:16 | XMS_ITS | Clinical Summary ---
Author Organization [facility] Address [address] [place] [address] Care Team Providers Care Booster Pump Oiler Name Role Phone Vladimir Villela MD Primary Care Provider [phone] Source Comments [facility],non-owned Affiliates and Associated Physician Practices is amultiple site organization consisting of ambulatory clinics and hospital sitesin [place], [place], [place] and [place]. This disclosure is being madepursuant to the Care Everywhere program and may not contain all information available regarding this patient. 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 Not on file No t on file Not on file Not on file Not on file Not on file Last Filed Vital Signs Vital Sign Reading Time Taken Comments Blood Pressure 145/98 08/19/2011 11:19 AM DIE STORAGE WORKER Pulse 84 08/19/2011 11:19 AM DIE STORAGE WORKER Temperature - - Respiratory Rate 16 08/19/2011 10:57 AM DIE STORAGE WORKER Oxygen Saturation - - Inhaled Oxygen Concentration - - Weight 88.2 kg (194 lb 6 oz) 08/19/2011 10:57 AM DIE STORAGE WORKER Height 179.1 cm (5' 10.5) 08/19/2011 10:[address] Body Mass Index 27.5 08/19/2011 10:57 AM DIE STORAGE WORKER Plan of Treatment Upcoming Encounters Date Type Department Care Team (Late st Contact Info) Description 08/27/2025 8:00 AM DIE STORAGE WORKER Office Visit [facility] [address], [place] [phone] Health Maintenance Due Date Last Done Comments [...] Comment: Test Performed at: [facility] [address] [place] [address] KINGSLEY HASTINGS DO,MPH HDL Cholesterol 52 > [...] - CHEMISTRY ORDERABLES F inal Result [facility] [address] [place] [address] from Last 3 Months or Most Recently Relevant to Health Maintenance Insurance Care Teams Booster Pump Oiler Relationship Specialty Start Date End Date Vladimir Villela MD [address] [place] [id number] PCP - General Internal Medicine 08/19/11
--- OUTSIDE RECORDS SUMMARY | 2025-07-16 14:16 | XMS_ITS | Encounter Summary ---
Author Organization 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
--- OUTSIDE RECORDS SUMMARY | 2025-07-16 14:16 | XMS_ITS | Clinical Summary ---
Author Organization [facility] [place] Address [address] [place] [address] Care Team Providers Care Welfare Specialist Name Role Phone Terrell Pillai MD Primary Care Provider [phone] Alfie Bashir MD Unavailable [phone] Allergies No known active allergies Medications [...] Type Department Care Team Description 05/27/2025 Telephone [facility] Medicine Oncology [address] [place] [address] [address] [place] [address] [place] CMA 05/27/2025 Telephone [facility] Medicine Oncology [address] [place] [address] [address] [place] [address] [place] CMA 05/12/2025 Telephone [facility] Cardiology [address] [place] [phone] Chad Price, Katya from Last 3 Months [...] on file 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 Does NOT exclude the possibility of recent exposure to HCV. Blood 07/09/2021 12:0 4 PM CAUSTIC PURIFICATION OPERATOR 07/09/2021 12:40 PM CAUSTIC PURIFICATION OPERATOR us Notinfile Unknown LAB MICROBIOLOGY - GENERAL ORD ERABLES Edited Result - Final [facility] Department [place] [address] from Last 3 Months or Most Recently Relevant to Health Maintenance Insurance [facility] Care Teams Welfare Specialist Relationship Specialty Start Date End Date Terrell Pillai MD [address] [place] [id number] PCP - General Family Medicine 06/08/21 Alfie Bashir MD [address] [place] [address] Medical Oncologist/Auto Bumper Mechanic Medical Oncology 11/25/24
--- OUTSIDE RECORDS SUMMARY | 2025-07-16 14:16 | XMS_ITS | Encounter Summary ---
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
--- OUTSIDE RECORDS SUMMARY | 2025-07-16 14:16 | XMS_ITS | Clinical Summary ---
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
[2025-07-16 15:33] LABS: Appearance Peritoneal Fluid Hazy (Clear); Color Peritoneal Fluid Yellow (Colorless); Lymphocytes Peritoneal Fluid 22 %; Macrophages Peritoneal Fluid 38 %; Monocytes Peritoneal Fluid 5 %; Neutrophils Peritoneal Fluid 35 % (0-25); Nucleated Cells Peritoneal Flu 354 /uL (0-500); Source Peritoneal Fluid Peritoneal Fluid
[2025-07-17 12:08] LABS: Albumin, Body Fluid 0.4 g/dL (Not Estab.)
== END 2025-07-16 12:26 | disposition home or self-care (01) ==
PROVIDERS: Radiology Diagnostic Radiology; PCP Family Medicine
DX: K70.31 Alcoholic cirrhosis of liver with ascites (principal); K70.10 Alcoholic hepatitis without ascites
CPT/HCPCS: 36415; 49083; 82042; 84157; 85049; 85610; 87205; 89051